=== PATIENT | female | born 1945 | race Caucasian/White ===

== ENCOUNTER → 2016-12-24 | Outpatient (CLI) | payer MEDICARE ==
[~2016-12-24] MED LIST: ALBU17AE3; ALBU8.5H2 IH; ALN70T PO; ASP325T PO; ASP81CT; ASP81CT PO; BENZONATATE 200 MG; CETI-156 PO; CETI10TA17 PO; CHOL10003 PO; CHOL200025 PO; CHOL200035 PO; CLD600T; CLR500T; CTRZ10T PO; CULTURELLE; CYAN10006 PO; DILT120C53 PO; DILT60TA PO; EST.625T PO; ESTR0.9T PO; FAMO1TAB21 PO; FAMO20TA13; FAMO20TA5 PO; FLEC50TA PO; GFN600TCR; HYDR-34 PO; HYDROMET SYRUP; LEVA1.2511 NEB; LEVO50TA PO; LVT.05T PO; MMT17NA NSEACH; MNTL10T; MNTL10T PO; MULT1TAB63; OMEG1CAP74 PO; OMG1KC PO; PRAV10TA PO; PRAV10TA23 PO; RIVA20TA2 PO; SIMV20TA3 PO; SLMFT1E; [UNRECOGNIZED DRUG - OTHER]; enduracin PO
--- OUTSIDE RECORDS SUMMARY | 2016-12-24 10:46 | XMS REPORT | Continuity of Care Document ---
Author Author [facility] Organization [facility] Address Unknown Phone Unavailable Care Team Providers Care Nuclear Plant Equipment Operator Name Role Phone Amari Maurer PCP [phone] Source Comments Some departments are not documenting in the electronic medical record. If you do not see the information that you expected, contact Release of Information in the Health Information Management department at [phone] for further assistance in locating additional records.[facility] Active Allergies and Adverse Reactions Allergen Noted Date Severity Reactions Comments Codeine 09/23/2014 NAUSEA AND VOMITING Current Medications Prescription Sig. Disp. Refills Start End Date Status Date levothyroxine (SYNTHROID) Take 50 mcg by mouth Active 50 mcg tablet daily. BENEFIBER (WHEAT DEXTRIN) Take 15 mL by mouth Active PO daily. pravastatin (PRAVACHOL) Take 10 mg by mouth at Active 10 mg tablet bedtime daily. cetirizine (ZYRTEC) 10 mg Take 10 mg by mouth at Active tablet bedtime daily. fish oil /omega-3 fatty Take 3 Caps by mouth at Active acids (SEA-OMEGA) bedtime daily. 340/1000 mg capsule OXYGEN-AIR DELIVERY Use as directed. Therapy Active SYSTEMS (HORIZON NASAL with air flow pressure of CPAP SYSTEM MISC) 7 with humidity at 5. CALCIUM CARBONATE (TUMS Take by mouth as Needed. Active PO) Cyanocobalamin 1,[address] 1 Tab under tongue Active subl at bedtime daily. rivaroxaban (XARELTO) 20 Take 1 Tab by mouth daily 08/28/20 Active mg tab tablet with dinner. 15 VITAMIN D-3 5,000 unit Take 1 Tab by mouth Active tab daily. diltiazem CD (CARTIA XT) Take 120 mg by mouth Active 120 mg capsule daily. teriparatide(+) (FORTEO) Inject 20 mcg under the Active 20 mcg/dose - 600 mcg/2.4 skin daily. mL pnij injection pen Active Problems Problem Noted Date Hyperlipidemia 09/23/2014 Last Assessment & Plan: Her lipids continue to be managed by her pcp. She continues to be on recommended statin therapy with Pravastatin 10 mg daily. CELY (obstructive sleep apnea) 09/23/2014 Last Assessment & Plan: She reports compliance with CPAP therapy. Hypothyroidism 09/23/2014 Last Assessment & Plan: She continues to be on supplemental replacement therapy. Elevated liver enzymes 09/23/2014 Overview: History of with simvastatin and eduracin. Tolerating Pravachol Coronary artery disease 09/23/2014 Overview: 06/21/12-[facility]ia [facility] MPI- 6 min; 89% target achieved; no ischemia or infarction on SPECT images; EF 78% 09/18/1401-wokv-ptjw coronary artery disease; nonobstructive disease L ast Assessment & Plan: Ms. Brewer denies any new symptomatic complaints suggestive of ischemia. Her heart cath in August 2014 was negative for any significant stenosis. Atrial fibrillation and flutter (HCC) 09/19/2014 Last Assessment & Plan: S/p atrial fibrillation ablation via Cryoablation in July. Outside the immediate post operative period, she has not had any further atrial arrhythmias. She was instructed that after the first of the year, she may decrease her flecainide to 50 mg twice daily. If she continues to be arrhythmia free, she was instructed she may discontinue her flecainide completely in 4-6 weeks. We did discuss that about 20-30% of patients experience reconnections and she may require a repeat ablation in the future. Chronic anticoagulation 09/19/2014 Overview: On Xarelto L ast Assessment & Plan: Since she thinks her lower extremity rash is due to her Xarelto, she was instructed to hold it for the next 3 to 4 days and if improves to let us know and we will switch her to a different anticoagulation agent. If it does not improve, she was instructed to reinitiate. Most Recent Encounters Date Type Specialty Providers Description 12/24/2016 Orders Only Cardiology Arlin Joseph Atrial fibrillation and flutter (HCC) (Primary Dx) 12/15/2016 [facility] Cardiology Felice Ocasio MD Encounter 11/10/2016 [facility] Cardiology Felice Ocasio MD Encounter 10/06/2016 [facility] Cardiology Felice Ocasio MD Encounter 09/28/2016 [facility] Cardiology Felice Ocasio MD Palpitations Social History Tobacco Use Types Packs/Day Years Used Date Never Smoker Smokeless Tobacco: Never Used Alcohol Use Drinks/Week oz/Week Comments No 0 Standard 0.0 drinks or equivalent Last Filed Vital Signs Vital Sign Reading Time Taken Blood Pressure 110/62 07/28/2016 9:20 AM CDT Pulse 68 07/28/2016 9:20 AM CDT Temperature 36.4 C (97.5 F) 08/28/2015 10:52 AM CDT Respiratory Rate - - Height 1.702 m (5' 7") 07/28/2016 9:20 AM CDT Weight 75.751 kg (167 lb) 07/28/2016 9:20 AM CDT Body Mass Index 26.15 07/28/2016 9:20 AM CDT Oxygen Saturation 94% 08/28/2015 10:21 AM CDT Plan of Care Date Type Specialty Providers Description 12/30/2016 Appointment Cardiology Felice Ocasio MD [address] [facility] [address] [place] [address] [phone] (Fax) 01/17/2017 Appointment Cardiology Felice Ocasio MD [address] [facility] [address] [place] [address] [phone] (Fax) Health Maintenance Due Date Last Done Comments Physical (Comprehensive) 1952 Exam Pertussis Vaccine 1954 Tetanus Vaccine 1960 Breast Cancer Screening 1983 Colorectal Cancer 1993 Screening Shingles Vaccine 2003 Osteoporosis Screening 2008 Prevnar/Pneumovax (#1) 2008 Influenza Vaccine 07/01/2016 Results from Last 3 Months DEVICE EVALUATION - REMOTE ILR (12/17/2016 9:59 AM)Only the most recent of 3 results within the time period is included. Component Value Range ILR History of Afib yes ILR Date AF Diagnosed 2011 Generator Implnat Date 10/09/14 Generator Model # Reveal LNQ11 Device Implanted By [place] Generator Serial # [id number] EP Device Followed by LIZZY/Michelle Name ILR Symptom Duration 4 7.5 mins each ILR Tachy Rate 158 ILR Tachy Duration 16 ILR Pause Duration 3 ILR Brandon Rate 30 ILR Brandon Duration 4 ILR AT Events Since Last n/a Interrogation ILR AT Lifetime Events as n/a of Remote Monitor Serial# [id number] Generator Channel Cementer Outsole Machine Medtronic Wireless Generator Yes Device Type ILR EP Device Followed By MAC ILR AF Rate AF only ILR AF Duration all episodes ILR Current Monitoring 12/15/16-01/14/17 Period ILR Date of Last Daily 12/17/16 Connection ILR Lifetime Events as of 12/17/16 Datetion ILR Symptom Events Since 0 Last Interrogation ILR Symptom Lifetime 12 Events as of ILR Tachy Events Since 1 Last Interrogation ILR Tachy Lifetime Events 34 as of ILR Pause Events Since 0 Last Interrogation ILR Pause Lifetime Events 0 as of ILR Brandon Events Since 0 Last Interrogation ILR Brandon Lifetime Events 0 as of ILR AF Events Since Last 0 Interrogation ILR AF Lifetime Events as 0 of ILR Percent Time in AT/AF 0% Events Since Last Interrogation ILR Percent Time in AT/AF 0% Lifetime of Events as of ILR Battery Status OK ILR Presenting ECG Strip 12/17/16 @ 00:04 shows SR rates 90's Generator Location Precordial Narrative [12/17/2016 10:01:26 AM - MIGUEL ÁNGEL DIAZ] Reviewed 31 day summary. Report indicates 1 tachy event. #56 Tachy 11/23/16 @ 18:10 lasting 9 seconds with median vrate 176 bpm and max vrate 176 bpm shows 30 sec strip with SR rates 90's with onset up SVT 180 bpm for 27 beats with termination of SVT and egm returning to SR rates 80's at time of termination of strip. Will continue to monitor. Strips attached. Routed to Dr. bazzi for review and signature. _
--- NOTE | 2016-12-24 11:08 | Diagnostic Imaging Report ---
INDICATION: Pain in right foot AP, oblique, and lateral views of the right foot were obtained. No fracture or acute bony abnormality is seen. There is plantar calcaneal spurring. There is no overt lytic or blastic lesion. IMPRESSION: Negative right foot. Dictated by: Dictated on workstation # [id number]
== END ==
LOC: RAD 10:42
PROVIDERS: ATTEND Nurse Practitioner Family
DX: M79.89 Other specified soft tissue disorders (principal)
CPT/HCPCS: 73630

== ENCOUNTER → 2016-12-29 | Outpatient (CLI) | payer MEDICARE ==
--- OUTSIDE RECORDS SUMMARY | 2016-12-29 14:36 | XMS REPORT | Continuity of Care Document ---
Author Author [facility] Organization [facility] Address Unknown Phone Unavailable Care Team Providers Care Learning Program Manager Name Role Phone Amari Maurer PCP [phone] Source Comments Some departments are not documenting in the electronic medical record. If you do not see the information that you expected, contact Release of Information in the Health Information Management department at [phone] for further assistance in locating additional records.[facility] Active Allergies and Adverse Reactions Allergen Noted [...] or infarction on SPECT images; EF 78% 09/18/1439-erot-doue coronary artery disease; nonobstructive disease L ast [...] fibrillation and flutter (HCC) (Primary Dx) 12/15/2016 [facility] Cardiology Felice Ocasio MD Encounter 11/10/2016 [facility] Cardiology Felice Ocasio MD Encounter 10/06/2016 [facility] Cardiology Felice Ocasio MD Encounter Social History Tobacco Use Types Packs/Day Years [...] 12/30/2016 Appointment Cardiology Felice Ocasio MD [address] [facility] [address] [place] [address] [phone] (Fax) 12/30/2016 Office Visit Cardiology Felice Ocasio MD [address] [facility] [address] [place] [address] [phone] (Fax) 01/17/2017 Appointment Cardiology Felice Ocasio MD [address] [facility] [address] [place] [address] [phone] (Fax) Health Maintenance Due Date Last Done [...] Model # Reveal LNQ11 Device Implanted By [place] Generator Serial # [id number] EP Device Followed by LIZZY/Michelle Name ILR Symptom Duration 4 7.5 mins each ILR Tachy Rate 158 ILR Tachy Duration 16 ILR Pause Duration 3 ILR Brandon Rate 30 ILR Brandon Duration 4 ILR AT Events Since Last n/a Interrogation ILR AT Lifetime Events as n/a of Remote Monitor Serial# [id number] Generator Hemp Fiber Taker Off Medtronic Wireless Generator Yes Device Type ILR [...]
--- NOTE | 2016-12-29 15:21 | Diagnostic Imaging Report ---
EXAMINATION: Right lower extremity duplex venous ultrasound. TECHNIQUE: DVT protocol. Multiple sonographic images with color Doppler and waveform interrogation were performed of the right lower extremity veins with compression and augmentation maneuvers. INDICATION: Right leg pain and swelling. FINDINGS: The right lower extremity veins from the groin to below the knee veins were examined with normal color-flow, compressibility and normal waveform demonstrated. The great saphenous vein is patent. IMPRESSION: No evidence of DVT in the right lower extremity. Dictated by: Dictated on workstation # [id number]
== END ==
LOC: RAD 14:32
PROVIDERS: ATTEND Nurse Practitioner Family
DX: M79.671 Pain in right foot (principal); R22.41 Localized swelling, mass and lump, right lower limb

== ENCOUNTER → 2017-10-21 | Outpatient (CLI) | payer MEDICARE | LOC: CARD 09:18 | PROVIDERS: ATTEND Physician Assistant | DX: I48.0 Paroxysmal atrial fibrillation (principal); I10 Essential (primary) hypertension; E78.2 Mixed hyperlipidemia; R00.2 Palpitations; Z82.49 Family history of ischemic heart disease and other diseases of the circulatory system | CPT/HCPCS: 93306 ==

== ENCOUNTER 2018-05-18 05:40 | Outpatient (CLI) | payer MEDICARE ==
[~2018-05-18] VITALS: Ht 165.1 cm; Wt 72.6 kg
[2018-05-18] MEDS ORDERED: PRAV10TA PO (13:26)
[2018-05-18] MEDS ORDERED: CHOL500061 PO (13:26)
[2018-05-18] MEDS ORDERED: PANT40TA3 PO (13:26)
[2018-05-18] MEDS ORDERED: CETI10TA17 PO (13:26)
[2018-05-18] MEDS ORDERED: OMEG100032 PO (13:26)
[2018-05-18] MEDS ORDERED: CYAN100088 PO (13:26)
[2018-05-18] MEDS ORDERED: LEVO50TA6 PO (13:26)
[2018-05-18] MEDS ORDERED: TERI202.4P SQ (13:26)
[2018-05-18] MEDS ORDERED: BIMA2.5D4 OU (13:26)
[2018-05-18] MEDS ORDERED: ASPI-808 PO (13:26)
== END 2018-05-18 15:42 ==
LOC: PREOP 05:40
PROVIDERS: ATTEND Surgery
DX: Z01.818 Encounter for other preprocedural examination (principal); Z12.11 Encounter for screening for malignant neoplasm of colon

== ENCOUNTER 2018-05-24 11:38 | Day surgery (SDC) | payer MEDICARE ==
[~2018-05-24] VITALS: Ht 165.1 cm; Wt 72.6 kg
[~2018-05-24 11:38] MED LIST changes: +ASPI-808 PO; +BIMA2.5D4 OU; +CHOL500061 PO; +CYAN100088 PO; +LEVO50TA6 PO; +OMEG100032 PO; +PANT40TA3 PO; +TERI202.4P SQ
--- OUTSIDE RECORDS SUMMARY | 2018-05-24 11:41 | XMS REPORT | Encounter Summary ---
Author Author [facility] Organization [facility] Address Unknown Phone Unavailable Care Team Providers Care Crucible Furnace Tender Name Role Phone Juju Maurer MD PCP Chrissy Vail RN Unavailable Unavailable Monica Pool Unavailable Unavailable Encounter Details Date Type Department Care Team Description 03/23/2018 Ancillary [facility] Cardiology Felice Ocasio MD Cardiac device in situ [place] [address] [place] [address] [place] [address] [phone] Social History Tobacco Use Types Packs/Day Years Used Date Never Smoker Smokeless Tobacco: Never Used Alcohol Use Drinks/Week oz/Week Comments No 0 Standard 0.0 drinks or equivalent Sex Assigned at Date Recorded Not on file as of this encounter Plan of Treatment Not on fileas of this encounter Results * DEVICE EVALUATION - ILR (03/23/2018 10:17 AM) Component Value Ref Range ILR History of Afib yes ILR Date AF Diagnosed 2,012 Generator Implnat Date 10/09/14 Generator Model # Reveal LNQ11 Device Implanted By [place] Generator Serial # [id number] EP Device Followed by LIZZY/Michelle Name ILR Symptom Duration 4 7.5 mins each ILR Tachy Rate 158 ILR Tachy Duration 16 ILR Pause Duration 3 ILR Brandon Rate 30 ILR Brandon Duration 4 ILR AT Events Since Last n/a Interrogation ILR AT Lifetime Events as n/a of Remote Monitor Serial# [id number] Generator Steel Placer Medtronic Wireless Generator Yes Device Type ILR EP Device Followed By MAC ILR AF Rate AF only ILR AF Duration all episodes ILR Battery Status EOS on 12/21/17 ILR Symptom Events Since 0 Last Interrogation ILR Symptom Lifetime 0 Events as of ILR Tachy Events Since 2 Last Interrogation ILR Tachy Lifetime Events 69 as of ILR Pause Events Since 0 Last Interrogation ILR Pause Lifetime Events 0 as of ILR Brandon Events Since 0 Last Interrogation ILR Brandon Lifetime Events 0 as of ILR AF Events Since Last 0 Interrogation ILR AF Lifetime Events as 0 of ILR Percent Time in AT/AF 0.0% Events Since Last Interrogation ILR Presenting ECG Strip VS at 60 bpm ILR Lifetime Events as of 03/23/18 Datetion Specimen Performing Laboratory OTHER OUTSIDE LAB Narrative 03/23/2018 - ILR LINQ device interrogation.Device function appears normal.Battery reached EOS on 12/21/17. Events noted since 11/19/17: Tachy episode #106 on 12/19/17 at 1:41pm lasting 11 seconds, EGM shows sudden onset and termination on true tachycardia, V-rates 188 bpm. Tachy episode #107 on 12/22/17 at 5:35pm lasting 8 seconds, EGM shows sudden onset and termination of true tachycardia, V-rates: 167 bpm. Changes made to programming:None. Remote in place.Report given to LIZZY in clinic. EG in this encounter Visit Diagnoses Diagnosis Cardiac device in situ Unspecified cardiac device in situ
--- OUTSIDE RECORDS SUMMARY | 2018-05-24 11:41 | XMS REPORT | Clinical Summary ---
Author Author [facility] Organization [facility] Address Unknown Phone Unavailable Care Team Providers Care Senior Sales Manager Name Role Phone Juju Maurer MD PCP Chrissy Vail RN Unavailable Unavailable Monica Pool Unavailable Unavailable Source Comments Some departments are not documenting in the electronic medical record. If you do not see the information that you expected, contact Release of Information in the Health Information Management department at [phone] for further assistance in locating additional records.[facility] Allergies Active Allergy Reactions Severity Noted Date Comments Codeine NAUSEA AND VOMITING 09/23/2014 Current Medications Prescription Sig. Disp. Refills Start End Date Status Date levothyroxine (SYNTHROID) Take 50 mcg by mouth Active 50 mcg tablet daily. pravastatin (PRAVACHOL) Take 10 mg by [...] SYSTEM MISC) 7 with humidity at 5. Cyanocobalamin 1,[address] 1 Tab under tongue Active subl at bedtime daily. VITAMIN D-3 5,000 unit Take 1 Tab by mouth Active tab daily. teriparatide(+) (FORTEO) Inject 20 mcg under the Active 20 mcg/dose - 600 mcg/2.4 skin daily. mL pnij injection pen diltiazem CD (CARTIA XT) Take 1 capsule by mouth 90 capsule 3 Active 120 mg daily. 17 capsuleIndications: Atrial tachycardia (HCC) aspirin 325 mg tablet Take 325 mg by mouth Active daily. Take with food. pantoprazole DR Take 40 mg by mouth Active (PROTONIX) 40 mg tablet daily. Active Problems Problem Noted Date Cardiac device in situ 03/23/2018 Hyperlipidemia 09/23/2014 Last Assessment & Plan: Her [...] Pravachol Coronary artery disease 09/23/2014 Overview: 06/21/12-[facility] MPI- 6 min; 89% target achieved; no ischemia or infarction on SPECT images; EF 78% 09/18/1445-jgls-xera coronary artery disease; nonobstructive disease L ast [...] not improve, she was instructed to reinitiate. Encounters Date Type Specialty Care Team Description 03/23/2018 Office Visit Cardiology Felice Ocasio MD Cardiac Eval ( 6 month f/u PAF, mild CAD) 03/23/2018 Hospital Cardiology Felice Ocasio MD Encounter 03/23/2018 Ancillary Cardiology Felice Ocasio MD Cardiac device in situ Orders from Last 3 Months Family History Medical History Relation Name Comments Cancer Father Cancer Mother Relation Name Status Comments Father Mother Social History Tobacco Use Types Packs/Day Years Used Date Never Smoker Smokeless Tobacco: Never Used Alcohol Use Drinks/Week oz/Week Comments No 0 Standard 0.0 drinks or equivalent Sex Assigned at Date Recorded Not on file Last Filed Vital Signs Vital Sign Reading Time Taken Blood Pressure 134/68 03/23/2018 9:41 AM CDT Pulse 62 03/23/2018 9:41 AM CDT Temperature 36.4 C (97.5 F) 08/28/2015 10:52 AM CDT Respiratory Rate - - Oxygen Saturation 99% 03/23/2018 9:41 AM CDT Inhaled Oxygen - - Concentration Weight 77.1 kg (170 lb) 03/23/2018 9:41 AM CDT Height 170.2 cm (5' 7") 03/23/2018 9:41 AM CDT Body Mass Index 26.63 03/23/2018 9:41 AM CDT Plan of Treatment Health Maintenance Due Date Last Done Comments PHYSICAL (COMPREHENSIVE) 1952 EXAM PERTUSSIS VACCINE 1954 TETANUS VACCINE 1960 BREAST CANCER SCREENING 1983 COLORECTAL CANCER 1993 SCREENING SHINGLES RECOMBINANT 1993 VACCINE (1 of 2) OSTEOPOROSIS SCREENING 2008 PNEUMONIA (PCV13/PPSV23) 2008 VACCINES (1 of 2 - PCV13) INFLUENZA VACCINE 07/31/2018 Procedures Procedure Name Priority Date/Time Associated Diagnosis Comments ECG-SCAN 04/08/2018 Results for this 8:55 AM CDT procedure are in the results section. from Last 3 Months Results * ECG-SCAN (04/08/2018 8:55 AM) Narrative Ordered by an unspecified provider. * DEVICE EVALUATION - ILR (03/23/2018 10:17 AM) Component Value Ref Range ILR History of Afib yes ILR Date AF Diagnosed 2,012 Generator Implnat Date 10/09/14 Generator Model # Reveal LNQ11 Device Implanted By [place] Generator Serial # [id number] EP Device Followed by LIZZY/Michelle Name ILR Symptom Duration 4 7.5 mins each ILR Tachy Rate 158 ILR Tachy Duration 16 ILR Pause Duration 3 ILR Brandon Rate 30 ILR Brandon Duration 4 ILR AT Events Since Last n/a Interrogation ILR AT Lifetime Events as n/a of Remote Monitor Serial# [id number] Generator Assistant Manager Of Operations Medtronic Wireless Generator Yes Device Type ILR [...] to programming:None. Remote in place.Report given to MPE in clinic. EG from Last 3 Months
--- OUTSIDE RECORDS SUMMARY | 2018-05-24 11:41 | XMS REPORT | Encounter Summary ---
Author Author [facility] Organization [facility] Address Unknown Phone Unavailable Care Team Providers Care Claims Agent Right Of Way Name Role Phone Juju Maurer MD PCP Chrissy Vail RN Unavailable Unavailable Monica Pool Unavailable Unavailable Reason for Referral * Status Reason Specialty Diagnoses / Referred By Referred To Procedures Contact Contact New Request Procedures Felice Ocasio, REQUEST FOR MD CARDIOLOGY [address] [facility] [address] [place] [address] Reason for Visit * Reason Comments Cardiac Eval 6 month f/u PAF, mild CAD Encounter Details Date Type Department Care Team Description 03/23/2018 Office Visit [facility] Cardiology Felice Ocasio MD Cardiac Eval (6 month f/u [facility] [facility] PAF, mild CAD) [address] [place] [address] [place] [address] [phone] Social History Tobacco Use Types Packs/Day Years Used Date Never Smoker Smokeless Tobacco: Never Used Alcohol Use Drinks/Week oz/Week Comments No 0 Standard 0.0 drinks or equivalent Sex Assigned at Date Recorded Not on file as of this encounter Last Filed Vital Signs Vital Sign Reading Time Taken Blood Pressure 134/68 03/23/2018 9:41 AM CDT Pulse 62 03/23/2018 9:41 AM CDT Temperature - - Respiratory Rate - - Oxygen Saturation 99% 03/23/2018 9:41 AM CDT Inhaled Oxygen - - Concentration Weight 77.1 kg (170 lb) 03/23/2018 9:41 AM CDT Height 170.2 cm (5' 7") 03/23/2018 9:41 AM CDT Body Mass Index 26.63 03/23/2018 9:41 AM CDT in this encounter Instructions * Patient Instructions - Verito Parrish RN - 03/23/2018 10:30 AM CDT I would like you to check your pulse daily for irregularity and/or rapidity and contact our office either occurs and persists. Also keep a log of your heart rates(HR) and note if your pulse is regular(R) or irregular(I) and bring that log with you during each office visit. if abnormal activate LINQ and call the ep nurse triage line at [phone] Ocasio in 9 months with device check In order to provide you the best care possible we ask that you follow up as below: For NON-URGENT questions please contact us through your [employer] account. For all medication refills please contact your pharmacy or send a request through [employer]. For all questions that may need to be addressed urgently please call the nursing triage line at [phone] Tuesday - Tuesday 8-5 only. Please leave a detailed message with your name, date of , and reason for your call. To schedule an appointment call [phone]. Please allow 10-15 business days for the results of any testing to be reviewed. Please call our office if you have not heard from a nurse within this time frame. in this encounter Progress Notes * Felice Ocasio MD - 03/23/2018 10:30 AM CDT Formatting of this note may be different from the original. Date of Service: 03/23/2018 Lisa Brewer is a 72 y.o. female. HPI I had the pleasure of seeing your patient Lisa Brewer in the [facility] as a part of the [facility] office today for follow up regarding her PAFIB and mild CAD. She was initially referred by my friend and colleague, Dr. Martinez, her primary grinder watch parts in [place], [place]. Ms. Brewer is an exceptionally pleasant 72 y.o. female, who is accompanied by her equally pleasant spouse. Their 15 year-old grandson has been offered full-ride scholarships to multiple [email or web address] for [employer]. The past medical history and data below has been reviewed and updated by me with new events for today's visit. Her PMHx briefly includes: PAFIB S/P AFIB Cryo Ablation (08/27/15), with Brief Episodes of ATACH Post-AFIB Ablation; S/P Medtronic Reveal LinQ Implantable Looping Monitor to follow AFIB burden; Mild CAD by Cardiac Cath (2013);Severe CELY-- on CPAP Tx; Hyperlipidemia; and Hypothyroidism (on replacement). Of note: Beta-Blockers contraindicated due to her Bronchospasm. She has a [id number] score of 2: Female and Age > 65 Regarding her AFIB:Please see Problem List and Prior OV notes including 01/12 and Initial Consultation note for greater detail. However, briefly: -- 07/2012: AFIB initially Dx'ed -- 09/23/14: Initial EP Consultation --> Flecainide as a qpqv-lr-pgt-pocket approach. -- 09/23/14 Echo: LVEF 60%. Mild LA enlargement (4.1 cm). Mild MR/TR. -- 10/09/14: Medtronic Reveal LinQ Implantable Looping Monitor Implanted by Dr. Martinez. -- 06/25/15: OV: Recurrent Sxic AFIB -->Initiated Flecainide 50 mg BIDand Cardizem CD 120 mg daily. -- 08/27/15: AFIB Cryo Ablation. -- 08/31/15: Recurrent ATACH with RVR -->Increased to Flecainide 100 mg BID. -- Outside the immediate post operative period, she had not had any further atrial arrhythmias. -- 10/31/15: Flecainide DC'ed. -- 12/2015: Post-Ablation CTA-- persistent mild LA enlargement with mild decrease in volume no significant pulmonary vein stenosis but there is mild focal narrowing of the left superior and left inferior ostia without stenosis and still early branching of the right superior PV. -- 08/2016: LinQ Monitor with recurrent SVT-ATACH, with brief recurrences one time in 12/2015, and one time in 05/2016. -- 07/28/16: OV (Dr. Ocasio): AFIB/Atypical AFL: Discontinued Diltiazem, pt has been off Flecainide since 10/31/15 -- 09/07/17: OV (Dr. Ocasio): Pt had zero recurrent AFIB over the last year with only very brief episodes of ATACH. We continued Diltiazem switched her to Eliquis due to insurance coverage issues. -- 10/25/17: Recommended reinitiation of Flecainide 50 mg BID for recurrent SVT -ATACH, but pt did not wish to reinitiate the medication at this time She STATES she is doing well. She has had a lot going on over the past few months. She had been very active taking care of her after multiple detached retina surgeries and doing the majority of the work around the house and has done well without any symptom limitations. She discontinued her Xarelto on 09/27/17 and has remained on ASA 325 mg daily. She states this decision was consulted with and approved by Dr. Martinez. She remains on Cartia. She also claims compliance with her OSAS Tx. She denies any chest discomfort, shortness of breath, palpitations, lightheadedness, near syncope or syncope, PND or orthopnea. FHx, SHx and ROS documented and I have reviewed, with some pertinent features to include: She is a Non-Smoker. Most pertinent ROS is included/discussed throughout the note, e.g. HPI and A/P. ASSESSMENT AND PLAN: -- Paroxysmal Atrial Tachycardia Noted [id number] Diltiazem, and Xarelto -- Atrial Fibrillation and Atypical Atrial Flutter--S/P AFIB Cryo-Ablation 2014 -- Prior anticoagulation -- [employer] Reveal LinQ Implantable Looping Monitor -- Bilateral Venous Varicosities -- Hypothyroidism -- Obstructive Sleep Apnea Syndrome (OSAS) -- Mixed Hyperlipidemia -- Mild Coronary Artery Disease -Per Cath She is doing exceptionally well. She has had no recurrent symptoms since December. She is off her Eliquis she does understand that there is some risks of being off Eliquis but has not had documented atrial fibrillation for well over a year. She will check her pulse daily. While she is willing to track any recurrent episodes of atrial arrhythmias. If she has recurrent AFIB I would initiate anticoagulation long-term. If she has frequent symptomatic recurrent atrial tachycardia then I would reinitiate Flecainide. Otherwise is doing exceptionally well on diltiazem without symptoms or events over the last 3+ months. She also claims compliance with her OSAS. PLAN: -- I have asked her to check her pulse twice (AM and PM) daily for irregularity and/or rapidity and contact our office if it occurs and persists. I have asked her to keep a log including date, once a day HR, regular or irregular-- elaborating on skipped beat or AFIB. -- I asked her to call our office and activate her LINQ device with any new or recurrent symptoms Ms. Brewer was educated regarding plan of care. She was instructed to call our office with any questions or concerns, as well as to notify us of any new or worsening symptoms. She verbalized understanding. I appreciate the opportunity to participate in the care of your patient. Please do not hesitate to contact me directly if you have any questions or further insights into her care. I have scheduled her follow-up with me in 9 month(s). Vitals: 03/23/18 0941 BP: 134/68 Pulse: 62 SpO2: 99% Weight: 77.1 kg (170 lb) Height: 1.702 m (5' 7") Body mass index is 26.63 kg/m. Past Medical History Patient Active Problem List Diagnosis Date Noted Cardiac device in situ 03/23/2018 Hyperlipidemia 09/23/2014 CELY (obstructive sleep apnea) 09/23/2014 Hypothyroidism 09/23/2014 Elevated liver enzymes 09/23/2014 History of with simvastatin and eduracin. Tolerating Pravachol Coronary artery disease 09/23/2014 06/21/12-Via Haley Rivera MPI- 6 min; 89% target achieved; no ischemia or infarction on SPECT images; EF 78% 09/18/1410-[id number]-[id number] coronary artery disease; nonobstructive disease Atrial fibrillation and flutter (HCC) 09/19/2014 Chronic anticoagulation 09/19/2014 On Xarelto Review of Systems Constitution: Negative. HENT: Negative. Eyes: Negative. Cardiovascular: Negative. Respiratory: Negative. Endocrine: Negative. Hematologic/Lymphatic: Negative. Skin: Negative. Musculoskeletal: Negative. Gastrointestinal: Negative. Genitourinary: Negative. Neurological: Negative. Psychiatric/Behavioral: Negative. Allergic/Immunologic: Negative. Physical Exam Constitutional: She is in no acute distress, resting comfortably. Skin/Integument: Warm and dry. Eyes: PERRL, sclera are non-icteric and no xanthelasmas noted. ENT: Hearing is intact, Oropharynx is clear and moist. Heme/Lym/Immun: Supple neck, without thyromegaly. Respiratory-Pulmonary/Chest: Effort normal and breath sounds normal. No respiratory distress or accessory muscle use. No obvious tracheal deviation. Clear to auscultation bilaterally. Cardiovascular: No evidence of increased jugular venous pressure, carotids are 2+/4+ equal bilaterally. Regular rhythm, S1, S2. 2/6 systolic murmur noted at the USBs. No heaves, thrills or rubs. Musc/Skeletal-Extremities: Without significant peripheral edema. With what appears to be full ROM. Bilateral venous varicosities. LINQ Site: Is in her left chest region and well-healed. Neuro: Patient is alert and oriented to person, place, and time. Psych: Patient does not appear anxious, she appears appropriate, with normal non-pressured speech and what appears to be appropriate judgement Cardiovascular Studies ECG today demonstrates NSR at 62 bpm, PAC, left axis deviation. RSR prime in V1. [employer] Reveal LinQ Implantable Looping Monitor Full device check performed with reprogramming which I have extensively reviewed. Changes, if done, as discussed below and is detailed in other dictation/note. Device reached EOS on 12/21/17. The device over still functional. She essentially had 2 new tach events. One was on 12/19/17 was on 12/22/17. She has had none since. Less symptomatic event was back in epic comments above. The tach events appear to be episodes of atrial tachycardia with a cycle length of 390 ms range. Appears to be a P-wave before the QRS. Second event was a cycle length of 320 ms. Both of a sudden onset and termination. They both are under 10 seconds in duration. Patient has had prior AFIB ablation. She has had short bursts of A. tach since that time. She is not on anticoagulation since she has had only recurrent A. tach. Most recent events with symptom activation auto activation again show brief A. tach. Not AFIB. We discussed at her office visit 08/2017 that if she continues to have symptoms we consider initiating Flecainide 50 mg twice daily.--We will contact her to see if she feels her symptoms warrant initiation of Flecainide. Also her device as noted he has reached PROJECT PROGRAM MANAGER. However is still functional. Since we are however utilizing it to track for AFIB since she is not on anticoagulation I would recommend explantation and reimplantation a new device. Dr. Martinez originally implanted her Medtronic LinQ Implantable Monitor device, therefore we will defer to him of to explant and reimplant new device. Problems Addressed Today Encounter Diagnoses Name Primary? Atrial fibrillation and flutter (HCC) Yes Cardiac device in situ Current Medications (including today's revisions) aspirin 325 mg tablet Take 325 mg by mouth daily. Take with food. cetirizine (ZYRTEC) 10 mg tablet Take 10 mg by mouth at bedtime daily. Cyanocobalamin 1,[address] 1 Tab under tongue at bedtime daily. diltiazem CD (CARTIA XT) 120 mg capsule Take 1 capsule by mouth daily. fish oil /omega-3 fatty acids (SEA-OMEGA) 340/1000 mg capsule Take 3 Caps by mouth at bedtime daily. levothyroxine (SYNTHROID) 50 mcg tablet Take 50 mcg by mouth daily. OXYGEN-AIR DELIVERY SYSTEMS (HORIZON NASAL CPAP SYSTEM [facility] [place]) Use as directed. Therapy with air flow pressure of 7 with humidity at 5. pantoprazole DR (PROTONIX) 40 mg tablet Take 40 mg by mouth daily. pravastatin (PRAVACHOL) 10 mg tablet Take 10 mg by mouth at bedtime daily. teriparatide(+) (FORTEO) 20 mcg/dose - 600 mcg/2.4 mL pnij injection pen Inject 20 mcg under the skin daily. VITAMIN D-3 5,000 unit tab Take 1 Tab by mouth daily. Documentation recorded by Silver Whyte, acting as scribe for Felice Ocasio M.D. in this encounter Plan of Treatment Name Priority Associated Diagnoses Order Schedule ECG 12-LEAD Routine Atrial fibrillation and Ordered: 03/23/2018 flutter (HCC) Cardiac device in situ as of this encounter Visit Diagnoses Diagnosis Atrial fibrillation and flutter (HCC) - Primary Cardiac device in situ Unspecified cardiac device in situ
--- OUTSIDE RECORDS SUMMARY | 2018-05-24 11:41 | XMS REPORT | Encounter Summary ---
Author Author [facility] Organization [facility] Address Unknown Phone Unavailable Care Team Providers Care Director Translational Name Role Phone Juju Maurer MD PCP Chrissy Vail RN Unavailable Unavailable Monica Pool Unavailable Unavailable Encounter Details Date Type Department Care Team Description 03/23/2018 [facility] Cardiology Felice Ocasio MD Encounter [place] [id number] [address] [facility] [address] [facility] [address] [place] [address] [place] [address] [phone] Social History Tobacco Use Types Packs/Day Years Used Date Never Smoker Smokeless Tobacco: Never Used Alcohol Use Drinks/Week oz/Week Comments No 0 Standard 0.0 drinks or equivalent Sex Assigned at Date Recorded Not on file as of this encounter Medications at Time of Discharge Medication Sig. Disp. Refills Start Date End Date aspirin 325 mg tablet Take 325 mg by mouth daily. Take with food. cetirizine (ZYRTEC) 10 mg Take 10 mg by mouth at tablet bedtime daily. Cyanocobalamin 1,[address] 1 Tab under tongue subl at bedtime daily. diltiazem CD (CARTIA XT) Take 1 capsule by mouth 90 capsule 3 2016 120 mg daily. capsuleIndications: Atrial tachycardia (HCC) fish oil /omega-3 fatty Take 3 Caps by mouth at acids (SEA-OMEGA) bedtime daily. 340/1000 mg capsule levothyroxine (SYNTHROID) Take 50 mcg by mouth 50 mcg tablet daily. OXYGEN-AIR DELIVERY Use as directed. Therapy SYSTEMS (HORIZON NASAL with air flow pressure of CPAP SYSTEM MISC) 7 with humidity at 5. pantoprazole DR Take 40 mg by mouth (PROTONIX) 40 mg tablet daily. pravastatin (PRAVACHOL) Take 10 mg by mouth at 10 mg tablet bedtime daily. teriparatide(+) (FORTEO) Inject 20 mcg under the 20 mcg/dose - 600 mcg/2.4 skin daily. mL pnij injection pen VITAMIN D-3 5,000 unit Take 1 Tab by mouth tab daily. as of this encounter Plan of Treatment Not on fileas of this encounter Results * DEVICE EVALUATION - ILR (03/23/2018 10:17 AM) Component Value Ref Range ILR History of Afib yes ILR Date AF Diagnosed 2,012 Generator Implnat Date 10/09/14 Generator Model # Reveal [id number] Device Implanted By [employer] Serial # [id number] EP Device Followed by LIZZY/Michelle Name ILR Symptom Duration 4 7.5 mins each ILR Tachy Rate 158 ILR Tachy Duration 16 ILR Pause Duration 3 ILR Brandon Rate 30 ILR Brandon Duration 4 ILR AT Events Since Last n/a Interrogation ILR AT Lifetime Events as n/a of Remote Monitor Serial# [id number] Generator Patent Litigation Associate K[employer] Wireless Generator Yes Device Type ILR EP [...] place.Report given to MPE in clinic. EG in this encounter Visit Diagnoses Diagnosis Atrial tachycardia (HCC) Other specified cardiac dysrhythmias Cardiac device in situ Unspecified cardiac device in situ
--- OUTSIDE RECORDS SUMMARY | 2018-05-24 11:45 | XMS REPORT | CCD ---
Author Author Juju Maurer Organization Juju Maurer MD, [facility] Address [address] [place] [address] Phone Care Team Providers Care Object Oriented Programmer Name Role Phone PP Unavailable CCM Unavailable Summary Purpose Interface Exchange Insurance Providers Payer name Policy type / Coverage type Covered republican ID Effective Begin Date Effective End Date WPS Medicare Part B Medicare Part B [id number] 2013 Unknown [facility] Medicare Part B [id number] Unknown Family history Grandfather Diagnosis Age At Onset No Family Disease Entered N/A Grandfather Diagnosis Age At Onset Myocardial infarction Unknown Grandmother Diagnosis Age At Onset No Family Disease Entered N/A Mother Diagnosis Age At Onset Hypertension Unknown Breast cancer Unknown Arthritis Unknown Father Diagnosis Age At Onset Cancer Unknown Myocardial infarction Unknown Social History Social History Element Codes Description Effective Dates Marital status Unknown 10/10/2012 Living arrangements Unknown House 10/10/2012 Number of adults in household Unknown 2 10/10/2012 Education level Unknown College Graduate 10/10/2012 Employment Unknown Retired 10/10/2012 Allergies, Adverse Reactions, Alerts Substance Reaction Codes Entered Date Inactivated Date Status CODEINE nausea RxNorm: 2670 10/10/2012 No Inactive Date Active Past Medical History Illness Codes Condition Status Onset Date Resolved Date Atrophy of thyroid (acquired) ICD-9: 244.8 ICD-10: E03.4 Active 10/11/2016 Unknown Mixed hyperlipidemia ICD-9: 272.2 ICD-10: E78.2 Active 04/11/2017 Unknown Other specified cardiac arrhythmias ICD-9: 427.89 ICD-10: I49.8 Active 10/11/2016 Unknown Encounter for general adult medical examination with abnormal findings ICD-9: V70.0 ICD-10: Z00.01 Active 01/24/2017 Unknown Pain in right foot ICD -9: 729.5 ICD-10: M79.671 Active 12/24/2016 Unknown Age-related osteoporosis without current pathological fracture ICD-9: 733.00 ICD-10: M81.0 Active 06/27/2016 Unknown Hypothyroidism, unspecified ICD-9: 244.9 ICD-10: E03.9 Active 04/29/2014 Unknown Cutaneous abscess of chest wall ICD-9: 682.2 ICD-10: L02.213 Active 04/13/2016 Unknown Gastro-esophageal reflux disease without esophagitis ICD-9: 530.81 ICD-10: K21.9 Active 02/09/2016 Unknown Unspecified atrial fibrillation ICD-9: 427.31 ICD-10: I48.91 Active 09/16/2014 Unknown Other fatigue ICD-9: 780.79 ICD-10: R53.83 Active 09/09/2015 Unknown ATRIAL FIBRILLATION ICD-9: 427.31 Active 09/16/2014 Unknown Hyperlipidemia ICD-9: 272.4 Active 04/29/2014 Unknown HYPOTHYROIDISM ICD-9: 244.9 Active 04/29/2014 Unknown Elevated blood sugar ICD-9: 790.29 Active 09/16/2014 Unknown UTI ICD-9: 599.0 Active 08/22/2014 Unknown Benign mole ICD-9: 216.9 Active 06/12/2013 Unknown Osteoarthritis Unknown Active 04/23/2013 Unknown Osteoarthritis ICD-9: 715.90 Active 04/23/2013 Unknown Sacroiliitis ICD-9: 720.2 Active 04/23/2013 Unknown Abdominal pain ICD-9: 789.00 Active 01/31/2013 Unknown Diarrhea ICD-9: 787.91 Active 01/31/2013 Unknown Atrial fibrillation Unknown Active 10/10/2012 Unknown Hyperlipidemia Unknown Active 10/10/2012 Unknown Hypothryroidism Unknown Active 10/10/2012 Unknown Hypothyroid Unknown Active 10/10/2012 Unknown osteopenia Unknown Active 10/10/2012 Unknown pneumonia Unknown Active 10/10/2012 Unknown Problems Condition Codes Effective Dates Condition Status Atrophy of thyroid (acquired) ICD-9: 244.8 ICD-10: E03.4 10/11/2016 Active Mixed hyperlipidemia ICD-9: 272.2 ICD-10: E78.2 04/11/2017 Active Other specified cardiac arrhythmias ICD-9: 427.89 ICD-10: I49.8 10/11/2016 Active Encounter for general adult medical examination with abnormal findings ICD-9: V70.0 ICD-10: Z00.01 01/24/2017 Active Pain in right foot ICD -9: 729.5 ICD-10: M79.671 12/24/2016 Active Age-related osteoporosis without current pathological fracture ICD-9: 733.00 ICD-10: M81.0 06/27/2016 Active Hypothyroidism, unspecified ICD-9: 244.9 ICD-10: E03.9 04/29/2014 Active Cutaneous abscess of chest wall ICD-9: 682.2 ICD-10: L02.213 04/13/2016 Active Gastro-esophageal reflux disease without esophagitis ICD-9: 530.81 ICD-10: K21.9 02/09/2016 Active Unspecified atrial fibrillation ICD-9: 427.31 ICD-10: I48.91 09/16/2014 Active Other fatigue ICD-9: 780.79 ICD-10: R53.83 09/09/2015 Active ATRIAL FIBRILLATION ICD-9: 427.31 09/16/2014 Active Hyperlipidemia ICD-9: 272.4 04/29/2014 Active HYPOTHYROIDISM ICD-9: 244.9 04/29/2014 Active Elevated blood sugar ICD-9: 790.29 09/16/2014 Active UTI ICD-9: 599.0 08/22/2014 Active Benign mole ICD-9: 216.9 06/12/2013 Active Osteoarthritis Unknown 04/23/2013 Active Osteoarthritis ICD-9: 715.90 04/23/2013 Active Sacroiliitis ICD-9: 720.2 04/23/2013 Active Abdominal pain ICD-9: 789.00 01/31/2013 Active Diarrhea ICD-9: 787.91 01/31/2013 Active Atrial fibrillation Unknown 10/10/2012 Active Hyperlipidemia Unknown 10/10/2012 Active Hypothryroidism Unknown 10/10/2012 Active Hypothyroid Unknown 10/10/2012 Active osteopenia Unknown 10/10/2012 Active pneumonia Unknown 10/10/2012 Active Medications Medication Codes Instructions Start Date Stop Date Status Fill Instructions Synthroid 50 mcg tablet RxNorm: 906997 TAKE ONE TABLET BY MOUTH EVERY DAY 09/30/2017 04/27/2018 Active 09/30/2017 4:10:19 PM Synthroid 50 mcg tablet RxNorm: 929529 Tablet(s) UD 08/19/2017 09/29/2017 Inactive 1/ 2 pill WED & SATURDAYS Xarelto 20 mg tablet RxNorm: 1830354 1 Tablet(s) PO daily 06/0912/12/2017 Inactive Synthroid 50 mcg tablet RxNorm: 172382 TAKE ONE TABLET BY MOUTH EVERY DAY 02/17/2017 08/18/2017 Inactive 02/17/2017 10:01:49 AM Tamiflu 75 mg capsule RxNorm: 656310 1 Capsule(s) PO daily 01/1701/17/2017 Inactive Vitamin D3 5,000 unit tablet RxNorm: 449967 1 Tablet(s) PO daily 11/23/2016 06/20/2017 Inactive Forteo 20 mcg/dose (600 mcg/2.4 mL) subcutaneous pen injector RxNorm: 2399805 20 mcg SQ daily 11/10/2016 03/09/2017 Inactive Xarelto 20 mg tablet RxNorm: 6369246 1 Tablet(s) PO daily 11/0806/05/2017 Inactive Synthroid 50 mcg tablet RxNorm: 299478 TAKE ONE TABLET BY MOUTH EVERY DAY 07/27/2016 02/16/2017 Inactive refill request Forteo 20 mcg/dose (600 mcg/2.4 mL) subcutaneous pen injector RxNorm: 5149875 20 mcg SQ 06/28/2016 10/25/2016 Inactive Vitamin D3 2,000 unit tablet RxNorm: 599241 1 Tablet(s) PO daily 06/08/2016 11/23/2016 Inactive triamcinolone acetonide 0.025 % lotion RxNorm: 8503478 1 Application TOP BID 04/14/2016 No Stop Date Active Xarelto 20 mg tablet RxNorm: 2637546 1 Tablet(s) PO daily 04/1411/07/2016 Inactive doxycycline hyclate 100 mg tablet RxNorm: 069311 1 Tablet(s) PO BID 04/14/2016 04/23/2016 Inactive Synthroid 50 mcg tablet RxNorm: 379966 1 Tablet(s) PO daily TAKE 1 TABLET BY MOUTH DAILY 12/25/2015 07/21/2016 Inactive flecainide 50 mg tablet RxNorm: 720831 1 Tablet(s) PO BID 07/0806/07/2016 Inactive aspirin 81 mg chewable tablet RxNorm: 868587 1 Tablet(s) PO daily 07/08/2015 06/07/2016 Inactive Cartia XT 120 mg capsule,extended release RxNorm: 363407 1 Capsule(s) PO daily 07/08/2015 01/09/2017 Inactive Xarelto 20 mg tablet RxNorm: 6660360 1 Tablet(s) PO daily 07/0802/02/2016 Inactive Synthroid 50 mcg tablet RxNorm: 052279 1 Tablet(s) PO daily TAKE 1 TABLET BY MOUTH DAILY 06/02/2015 12/24/2015 Inactive ceftriaxone 250 mg solution for injection RxNorm: 519493 Inj 08/22/2014 Inactive Bactrim DS 800 mg-160 mg tablet RxNorm: 992842 1 Tablet(s) PO BID 08/22/2014 08/28/2014 Inactive Bactrim DS 800 mg-160 mg tablet RxNorm: 702402 1 Tablet(s) PO BID 08/22/2014 08/21/2014 Inactive Pyridium 200 mg tablet RxNorm: 4538356 1 Tablet(s) PO TID PRN 08/22/2014 01/11/2017 Inactive Synthroid 50 mcg tablet RxNorm: 505885 1 Tablet(s) PO daily TAKE 1 TABLET BY MOUTH DAILY 05/20/2014 05/19/2014 Inactive 11/22/2013 11:35:24 AM Synthroid 50 mcg tablet RxNorm: 924440 TAKE 1 TABLET BY MOUTH DAILY 05/20/2014 05/14/2015 Inactive Synthroid 50 mcg tablet RxNorm: 251053 Tablet(s) PO TAKE 1 TABLET BY MOUTH DAILY 11/27/2013 05/19/2014 Inactive 11/22/2013 11:35:24 AM Synthroid 50 mcg tablet RxNorm: 004162 Tablet(s) PO TAKE 1 TABLET BY MOUTH DAILY 11/22/2013 11/26/2013 Inactive 11/22/2013 11:35:24 AM Elestrin 0.87 gram/actuation (0.06%) transdermal gel pump RxNorm: 079708 1 Application TD daily 10/22/20132014 Inactive Synthroid 50 mcg tablet RxNorm: 426365 Tablet(s) PO TAKE 1 TABLET BY MOUTH DAILY 04/24/2013 11/21/2013 Inactive 04/24/2013 3:04:31 PM Pennsaid 1.5 % Topical Drops RxNorm: 215973 30 Drop(s) TOP QID 04/23/2013 04/28/2014 Inactive Synthroid 50 mcg tablet RxNorm: 279188 Tablet(s) PO TAKE 1 TABLET BY MOUTH DAILY 01/22/2013 04/23/2013 Inactive Premarin 0.625 mg tablet RxNorm: 603302 1 Tablet(s) PO daily 10/21/2013 Inactive Synthroid 50 mcg tablet RxNorm: 426918 1 Tablet(s) PO daily 08/201201/07/2013 Inactive pantoprazole 40 mg tablet,delayed release RxNorm: 103624 1 Tablet(s) PO daily No Start Date Active Vitamin B-12 1,000 mcg tablet RxNorm: 134617 1 Tablet(s) PO QHS No Start Date Active Cartia XT 120 mg capsule,extended release RxNorm: 396177 1 Capsule(s) PO daily - Restarted by Dr. Ocasio No Start Date Active pravastatin 10 mg tablet RxNorm: 382069 1 Tablet(s) PO QHS No Start Date Active Fish Oil 900 mg-1,400 mg capsule,delayed release RxNorm: 1 Capsule(s) PO TID No Start Date Active aspirin 325 mg tablet RxNorm: 061069 1 Tablet(s) PO daily No Start Date Active Zyrtec 10 mg tablet RxNorm: 9478490 1 Tablet(s) PO daily No Start Date Active Nasonex 50 mcg/actuation [place] RxNorm: 370116 2 [place] NASAL PRN No Start Date 04/28/2014 Inactive aspirin 325 mg tablet RxNorm: 776687 1 Tablet(s) PO daily No Start Date 07/07/2015 Inactive Benefiber (wheat dextrin) oral RxNorm: 233904 oral No Start Date 12/12/2017 Inactive Premarin 0.625 mg tablet RxNorm: 577653 1 Tablet(s) PO daily No Start Date 12/11/2012 Inactive Zyrtec 10 mg tablet RxNorm: 1078361 1 Tablet(s) PO PRN No Start Date 04/28/2014 Inactive diltiazem 60 mg tablet RxNorm: 337908 1 Tablet(s) PO PRN No Start Date 07/07/2015 Inactive Xopenex 1.25 mg/3 mL Neb Solution RxNorm: 808984 3 Milliliter(s) INH PRN No Start Date 04/28/2014 Inactive Pyridium 200 mg tablet RxNorm: 9834700 1 Tablet(s) PO TID PRN No Start Date 08/21/2014 Inactive hydrocodone 5 mg-acetaminophen 325 mg tablet RxNorm: 403759 1 Tablet(s) PO Q6 PRN No Start Date 04/28/2014 Inactive Pepcid AC 10 mg chewable tablet RxNorm: 803293 1 Tablet(s) PO PRN No Start Date 06/07/2016 Inactive Tamiflu 75 mg capsule RxNorm: 164845 1 Capsule(s) PO daily No Start Date 01/16/2017 Inactive ProAir HFA 90 mcg/actuation Aerosol Inhaler RxNorm: 470311 1 Puff(s) INH PRN No Start Date 04/28/2014 Inactive Vitamin D3 1,000 unit tablet RxNorm: 758181 1 Tablet(s) PO daily No Start Date 06/07/2016 Inactive levothyroxine 50 mcg capsule RxNorm: 326138 1 Capsule(s) PO daily No Start Date 10/10/2012 Inactive alendronate 70 mg tablet RxNorm: 223414 1 Tablet(s) PO QW takes on No Start Date 04/28/2014 Inactive Xarelto 20 mg tablet RxNorm: 9131730 1 Tablet(s) PO daily No Start Date 01/06/2015 Inactive Flexeril 5 mg tablet RxNorm: 610086 1/2 Tablet(s) PO Q6 PRN No Start Date 04/28/2014 Inactive Singulair 10 mg tablet RxNorm: 581018 1 Tablet(s) PO PRN No Start Date 04/28/2014 Inactive Medication Administered Medication Codes Instructions Start Date Status ceftriaxone 250 mg solution for injection RxNorm: 262612 08/22/2014 No longer Active Immunizations Vaccine Codes Date Status Influenza CVX: 141 08/23/2016 completed Influenza CVX: 141 08/03/2013 completed Influenza CVX: 141 07/29/2012 completed Pneumococcal CVX: 33 07/29/2012 completed zostavax CVX: 121 09/13/2011 completed Tetanus/Diptheria CVX: 28 04/22/2011 completed Assessments Condition Codes Effective Dates Atrophy of thyroid (acquired) ICD-10: E03.4 ICD-9: 244.8 12/13/2017 Other specified cardiac arrhythmias ICD-10: I49.8 ICD-9: 427.89 12/13/2017 Mixed hyperlipidemia ICD-10: E78.2 ICD-9: 272.2 12/13/2017 Encounter for general adult medical examination with abnormal findings ICD-10: Z00.01 ICD-9: V70.0 01/24/2017 Pain in right foot ICD-10: M79.671 ICD-9: 729.5 12/24/2016 Age-related osteoporosis without current pathological fracture ICD-10: M81.0 ICD-9: 733.00 11/23/2016 Hypothyroidism, unspecified ICD-10: E03.9 ICD-9: 244.9 06/08/2016 Cutaneous abscess of chest wall ICD-10: L02.213 ICD-9: 682.2 04/14/2016 Gastro-esophageal reflux disease without esophagitis ICD-10 : K21.9 ICD-9: 530.81 02/10/2016 Unspecified atrial fibrillation ICD-10: I48.91 ICD-9: 427.31 11/11/2015 Other fatigue ICD-10: R53.83 ICD-9: 780.79 09/10/2015 HYPOTHYROIDISM ICD-9: 244.9 07/08/2015 Hyperlipidemia ICD-9: 272.4 07/08/2015 ATRIAL FIBRILLATION ICD-9: 427.31 2014 Elevated blood sugar ICD-9: 790.29 2013 UTI ICD-9: 599.0 08/22/2014 Benign mole ICD-9: 216.9 06/12/2013 Sacroiliitis ICD-9: 720.2 04/23/2013 Osteoarthritis ICD-9: 715.90 04/23/2013 DIARRHEA ICD-9: 787.91 04/23/2013 Abdominal pain ICD-9: 789.00 01/31/2013 Reason For Visit Reason For Visit Effective Dates Notes hypothyroid 12/13/2017 hypothyroid 08/08/2017 hypothyroid 04/11/2017 Annual Medicare Wellness Exam 01/24/2017 foot pain 12/24/2016 hypothyroid 10/11/2016 abnormal test results 06/28/2016 arrhythmia 06/08/2016 arthropod bite 04/14/2016 arrhythmia 02/10/2016 arrhythmia 11/11/2015 Hospital Follow Up 09/10/2015 arrhythmia 07/08/2015 arrhythmia 01/07/2015 arrhythmia 11/05/2014 arrhythmia 09/16/2014 dysuria 08/22/2014 hypothyroid 04/29/2014 arrhythmia 10/22/2013 diarrhea 04/23/2013 diarrhea 01/31/2013 arrhythmia 10/10/2012 Results Observation Observation Code Item Item Code Result Date Hepatic Qyh836 ALBUMIN 4.3 g/dL 09/20/2017 Hepatic Efa822 TPRO 6.9 g/dL 09/20/2017 Hepatic Wpb150 GLOB 2.7 g/dL 09/20/2017 Hepatic Zpv597 A/G Ratio 1.6 Ratio 09/20/2017 Hepatic Ezt760 ALK PHOS 100 U/L 09/20/2017 Hepatic Lvu215 ALT(SGPT) 29 U/L 09/20/2017 Hepatic Xch856 AST(SGOT) 26 U/L 09/20/2017 Hepatic Fiu422 BILI T 1.7 mg/dL 09/20/2017 Hepatic Vwc144 BILI D 0.3 mg/dL 09/20/2017 Hepatic Lky871 BILI I 1.4 mg/dL 09/20/2017 Lipid Ord30 CHOL 181 mg/dL 09/20/2017 Lipid Ord30 HDL 57.0 mg/dl 09/20/2017 Lipid Ord30 TRIG 139 mg/dL 09/20/2017 Lipid Ord30 LDL 96 mg/dL 09/20/2017 Lipid Ord30 C/HDL 3.2 Ratio 09/20/2017 Tsh Ord6 hTSH II 1.67 uIU/mL 08/08/2017 Free T4 Lyz709 FREE T4 1.13 ng/dL 08/08/2017 Cbc With Differential Ord2 WBC 5.05 K/ul 04/06/2017 Cbc With Differential Ord2 RBC 3.95 M/ul 04/06/2017 Cbc With Differential Ord2 HGB 12.9 g/dl 04/06/2017 Cbc With Differential Ord2 Neut% 48.3 % 04/06/2017 Cbc With Differential Ord2 HCT 38.1 % 04/06/2017 Cbc With Differential Ord2 MCV 96.5 fl 04/06/2017 Cbc With Differential Ord2 Lymph% 38.6 % 04/06/2017 Cbc With Differential Ord2 MCH 32.7 pg 04/06/2017 Cbc With Differential Ord2 [place]% 10.3 % 04/06/2017 Cbc With Differential Ord2 MCHC 33.9 pg 04/06/2017 Cbc With Differential Ord2 Eos% 2.6 % 04/06/2017 Cbc With Differential Ord2 PLT 198 K/ul 04/06/2017 Cbc With Differential Ord2 Baso% 0.2 % 04/06/2017 Cbc With Differential Ord2 RDW 13.1 % 04/06/2017 Cbc With Differential Ord2 Neut ABS# 2.44 K/ul 04/06/2017 Cbc With Differential Ord2 Lymph ABS# 1.95 K/ul 04/06/2017 Cbc With Differential Ord2 [place] ABS# 0.5 K/ul 04/06/2017 Cbc With Differential Ord2 Eos ABS# 0.1 K/ul 04/06/2017 Cbc With Differential Ord2 Baso ABS# 0.0 K/ul 04/06/2017 Tsh Ord6 hTSH II 2.58 uIU/mL 04/06/2017 Free T4 Wkq186 FREE T4 0.89 ng/dL 04/06/2017 Comp Metabolic Hyw185 NA 142 mEq/L 04/06/2017 Comp Metabolic Uit734 K 3.9 mEq/L 04/06/2017 Comp Metabolic Ggn049 CL 106 mEq/L 04/06/2017 Comp Metabolic Ptx198 CO2 26.0 mEq/L 04/06/2017 Comp Metabolic Ous358 ANION GAP 14 04/06/2017 Comp Metabolic Vva881 GLUCOSE 84 mg/dL 04/06/2017 Comp Metabolic Xtj805 Creat 0.7 mg/dL 04/06/2017 Comp Metabolic Fpx401 eGFR 87 ml/min/1.73m2 04/06/2017 Comp Metabolic Gnp162 BUN 21 mg/dL 04/06/2017 Comp Metabolic Dwb843 B/C Ratio 30.0 Ratio 04/06/2017 Comp Metabolic Uhu689 CALCIUM 9.3 mg/dL 04/06/2017 Comp Metabolic Yyt414 ALK PHOS 97 U/L 04/06/2017 Comp Metabolic Rld894 AST(SGOT) 21 U/L 04/06/2017 Comp Metabolic Xvl781 ALT(SGPT) 17 U/L 04/06/2017 Comp Metabolic Nit073 BILI T 1.5 mg/dL 04/06/2017 Comp Metabolic Ngs936 ALBUMIN 3.9 g/dL 04/06/2017 Comp Metabolic Bcm268 TPRO 6.4 g/dL 04/06/2017 Comp Metabolic Egb564 GLOB 2.5 g/dL 04/06/2017 Comp Metabolic Lzx055 A/G Ratio 1.5 Ratio 04/06/2017 Comp Metabolic Zna137 Osmo 285 mOsmo 04/06/2017 Lipid Ord30 CHOL 176 mg/dL 04/06/2017 Lipid Ord30 HDL 54.0 mg/dl 04/06/2017 Lipid Ord30 TRIG 76 mg/dL 04/06/2017 Lipid Ord30 LDL 107 mg/dL 04/06/2017 Lipid Ord30 C/HDL 3.3 Ratio 04/06/2017 Free T4 Ars601 FREE T4 1.01 ng/dL 10/07/2016 Tsh Ord6 hTSH II 1.94 uIU/mL 10/07/2016 Cbc With Differential Ord2 WBC 4.93 K/ul 10/07/2016 Cbc With Differential Ord2 RBC 4.09 M/ul 10/07/2016 Cbc With Differential Ord2 HGB 13.3 g/dl 10/07/2016 Cbc With Differential Ord2 HCT 39.6 % 10/07/2016 Cbc With Differential Ord2 Neut% 53.3 % 10/07/2016 Cbc With Differential Ord2 MCV 96.8 fl 10/07/2016 Cbc With Differential Ord2 Lymph% 33.1 % 10/07/2016 Cbc With Differential Ord2 MCH 32.5 pg 10/07/2016 Cbc With Differential Ord2 [place]% 12.0 % 10/07/2016 Cbc With Differential Ord2 MCHC 33.6 pg 10/07/2016 Cbc With Differential Ord2 Eos% 1.2 % 10/07/2016 Cbc With Differential Ord2 Baso% 0.4 % 10/07/2016 Cbc With Differential Ord2 PLT 226 K/ul 10/07/2016 Cbc With Differential Ord2 RDW 13.1 % 10/07/2016 Cbc With Differential Ord2 Neut ABS# 2.63 K/ul 10/07/2016 Cbc With Differential Ord2 Lymph ABS# 1.63 K/ul 10/07/2016 Cbc With Differential Ord2 [place] ABS# 0.6 K/ul 10/07/2016 Cbc With Differential Ord2 Eos ABS# 0.1 K/ul 10/07/2016 Cbc With Differential Ord2 Baso ABS# 0.0 K/ul 10/07/2016 Lipid Ord30 CHOL 176 mg/dL 10/07/2016 Lipid Ord30 HDL 57.0 mg/dl 10/07/2016 Lipid Ord30 TRIG 92 mg/dL 10/07/2016 Lipid Ord30 LDL 101 mg/dL 10/07/2016 Lipid Ord30 C/HDL 3.1 Ratio 10/07/2016 Comp Metabolic Mkx997 NA 140 mEq/L 10/07/2016 Comp Metabolic Obe195 K 4.0 mEq/L 10/07/2016 Comp Metabolic Snf089 CL 104 mEq/L 10/07/2016 Comp Metabolic Roa528 CO2 30.0 mEq/L 10/07/2016 Comp Metabolic Ptk902 ANION GAP 10 10/07/2016 Comp Metabolic Ncf611 GLUCOSE 86 mg/dL 10/07/2016 Comp Metabolic Gmu513 Creat 0.8 mg/dL 10/07/2016 Comp Metabolic Zuv137 eGFR 77 ml/min/1.73m2 10/07/2016 Comp Metabolic Byq363 BUN 21 mg/dL 10/07/2016 Comp Metabolic Kss849 B/C Ratio 26.9 Ratio 10/07/2016 Comp Metabolic Hpb691 CALCIUM 10.1 mg/dL 10/07/2016 Comp Metabolic Amj145 ALK PHOS 94 U/L 10/07/2016 Comp Metabolic Hvz020 AST(SGOT) 23 U/L 10/07/2016 Comp Metabolic Cio084 ALT(SGPT) 20 U/L 10/07/2016 Comp Metabolic Hwn086 BILI T 1.6 mg/dL 10/07/2016 Comp Metabolic Afi790 ALBUMIN 4.3 g/dL 10/07/2016 Comp Metabolic Mnb620 TPRO 7.2 g/dL 10/07/2016 Comp Metabolic Mip357 GLOB 2.9 g/dL 10/07/2016 Comp Metabolic Lcf825 A/G Ratio 1.5 Ratio 10/07/2016 Comp Metabolic Mnp089 Osmo 282 mOsmo 10/07/2016 Tsh Ord6 hTSH II 1.76 uIU/mL 06/04/2016 Free T4 Jup345 FREE T4 0.95 ng/dL 06/04/2016 Comp Metabolic Shn403 NA 139 mEq/L 02/04/2016 Comp Metabolic Cxj488 K 3.7 mEq/L 02/04/2016 Comp Metabolic Xxw533 CL 104 mEq/L 02/04/2016 Comp Metabolic Rgg707 CO2 29.0 mEq/L 02/04/2016 Comp Metabolic Der506 ANION GAP 10 02/04/2016 Comp Metabolic Pla767 GLUCOSE 83 mg/dL 02/04/2016 Comp Metabolic Shp340 Creat 0.8 mg/dL 02/04/2016 Comp Metabolic Fjn998 eGFR 76 ml/min/1.73m2 02/04/2016 Comp Metabolic Zgu333 BUN 23 mg/dL 02/04/2016 Comp Metabolic Tjk261 B/C Ratio 29.1 Ratio 02/04/2016 Comp Metabolic Epk568 CALCIUM 9.4 mg/dL 02/04/2016 Comp Metabolic Gxk073 ALK PHOS 69 U/L 02/04/2016 Comp Metabolic Xyg456 AST(SGOT) 23 U/L 02/04/2016 Comp Metabolic Hur126 ALT(SGPT) 20 U/L 02/04/2016 Comp Metabolic Tfn244 BILI T 1.4 mg/dL 02/04/2016 Comp Metabolic Gdi083 ALBUMIN 4.3 g/dL 02/04/2016 Comp Metabolic Fmw428 TPRO 7.0 g/dL 02/04/2016 Comp Metabolic Eil220 GLOB 2.8 g/dL 02/04/2016 Comp Metabolic Euq480 A/G Ratio 1.5 Ratio 02/04/2016 Comp Metabolic Fwy169 Osmo 280 mOsmo 02/04/2016 T4 Ord4 T4 12.0 ug/dL 02/04/2016 Total T3 Ord42 TT3 1.46 ng/ml 02/04/2016 Tsh Ord6 hTSH II 1.76 uIU/mL 02/04/2016 Lipid Ord30 CHOL 177 mg/dL 02/04/2016 Lipid Ord30 HDL 63.0 mg/dl 02/04/2016 Lipid Ord30 TRIG 77 mg/dL 02/04/2016 Lipid Ord30 LDL 99 mg/dL 02/04/2016 Lipid Ord30 C/HDL 2.8 Ratio 02/04/2016 Cbc With Differential Ord2 WBC 5.60 K/ul 02/04/2016 Cbc With Differential Ord2 RBC 4.17 M/ul 02/04/2016 Cbc With Differential Ord2 HGB 13.2 g/dl 02/04/2016 Cbc With Differential Ord2 Neut% 53.9 % 02/04/2016 Cbc With Differential Ord2 HCT 40.0 % 02/04/2016 Cbc With Differential Ord2 MCV 95.9 fl 02/04/2016 Cbc With Differential Ord2 Lymph% 33.4 % 02/04/2016 Cbc With Differential Ord2 MCH 31.7 pg 02/04/2016 Cbc With Differential Ord2 [place]% 10.5 % 02/04/2016 Cbc With Differential Ord2 MCHC 33.0 pg 02/04/2016 Cbc With Differential Ord2 Eos% 1.8 % 02/04/2016 Cbc With Differential Ord2 PLT 237 K/ul 02/04/2016 Cbc With Differential Ord2 Baso% 0.4 % 02/04/2016 Cbc With Differential Ord2 RDW 13.7 % 02/04/2016 Cbc With Differential Ord2 Neut ABS# 3.02 K/ul 02/04/2016 Cbc With Differential Ord2 Lymph ABS# 1.87 K/ul 02/04/2016 Cbc With Differential Ord2 [place] ABS# 0.6 K/ul 02/04/2016 Cbc With Differential Ord2 Eos ABS# 0.1 K/ul 02/04/2016 Cbc With Differential Ord2 Baso ABS# 0.0 K/ul 02/04/2016 Cbc With Differential Ord2 New Analyzer Notice Please note new ref ranges starting 11-12-2015 due to implemntation of new five part differential hematolgy analyzer. 02/04/2016 Lipid Ord30 CHOL 175 mg/dL 07/02/2015 Lipid Ord30 HDL 53.0 mg/dl 07/02/2015 Lipid Ord30 TRIG 106 mg/dL 07/02/2015 Lipid Ord30 LDL 101 mg/dL 07/02/2015 Lipid Ord30 C/HDL 3.3 Ratio 07/02/2015 T4 Ord4 T4 9.2 ug/dL 07/02/2015 Tsh Ord6 hTSH II 2.28 uIU/mL 07/02/2015 Cbc With Differential Ord2 WBC 4.9 K/uL 07/02/2015 Cbc With Differential Ord2 LYM 1.7 K/uL 07/02/2015 Cbc With Differential Ord2 LYM% 34.4 % 07/02/2015 Cbc With Differential Ord2 NEUT/GRAN 2.9 K/uL 07/02/2015 Cbc With Differential Ord2 NEUT/GRAN % 58.8 % 07/02/2015 Cbc With Differential Ord2 MID 0.3 K/uL 07/02/2015 Cbc With Differential Ord2 MID% 6.8 % 07/02/2015 Cbc With Differential Ord2 RBC 4.10 M/uL 07/02/2015 Cbc With Differential Ord2 HGB 13.1 g/dL 07/02/2015 Cbc With Differential Ord2 HCT 39.6 % 07/02/2015 Cbc With Differential Ord2 MCV 97 fL 07/02/2015 Cbc With Differential Ord2 MCH 32 pg 07/02/2015 Cbc With Differential Ord2 MCHC 33 g/dL 07/02/2015 Cbc With Differential Ord2 PLT 197 K/uL 07/02/2015 Cbc With Differential Ord2 RDW 14.5 % 07/02/2015 Total T3 Ord42 TT3 1.3 ng/ml 07/02/2015 Comp Metabolic Uyr693 NA 137 mEq/L 07/02/2015 Comp Metabolic Nbq033 K 4.0 mEq/L 07/02/2015 Comp Metabolic Hqe136 CL 104 mEq/L 07/02/2015 Comp Metabolic Utx408 CO2 28.0 mEq/L 07/02/2015 Comp Metabolic Vnd552 ANION GAP 9 07/02/2015 Comp Metabolic Cob863 GLUCOSE 81 mg/dL 07/02/2015 Comp Metabolic Rkx762 Creat 0.7 mg/dL 07/02/2015 Comp Metabolic Sdv940 eGFR 85 ml/min/1.73m2 07/02/2015 Comp Metabolic Vpv930 BUN 19 mg/dL 07/02/2015 Comp Metabolic Ijv650 B/C Ratio 26.4 Ratio 07/02/2015 Comp Metabolic Ogp461 CALCIUM 9.2 mg/dL 07/02/2015 Comp Metabolic Ndt755 ALK PHOS 69 U/L 07/02/2015 Comp Metabolic Zss997 AST(SGOT) 24 U/L 07/02/2015 Comp Metabolic Hri759 ALT(SGPT) 21 U/L 07/02/2015 Comp Metabolic Bbo021 BILI T 1.8 mg/dL 07/02/2015 Comp Metabolic Evv499 ALBUMIN 4.1 g/dL 07/02/2015 Comp Metabolic Gmx425 TPRO 6.8 g/dL 07/02/2015 Comp Metabolic Xnt993 GLOB 2.7 g/dL 07/02/2015 Comp Metabolic Vsq478 A/G Ratio 1.5 Ratio 07/02/2015 Comp Metabolic Gfq701 Osmo 275 mOsmo 07/02/2015 Review of Systems System Result Effective Dates Constitutional No recent illness 2017 Constitutional No night sweats 2017 Constitutional No chills 12/13/2017 Constitutional No diaphoresis 12/13/2017 Constitutional fatigue 12/13/2017 Constitutional No malaise 12/13/2017 Ears/Nose/Throat/Neck No dizziness 2017 Ears/Nose/Throat/Neck No headache 2017 Cardiovascular No chest pain/pressure Cardiovascular No dyspnea 12/13/2017 Respiratory No cough 12/13/2017 Gastrointestinal No abdominal pain 2017 Gastrointestinal No nausea 12/13/2017 Gastrointestinal No vomiting 12/13/2017 Musculoskeletal No joint complaint 2017 Dermatologic No rash 12/13/2017 Dermatologic No sores 12/13/2017 Neurologic No alteration of consciousness 12/13/2017 Psychiatric No anxiety 12/13/2017 Psychiatric No depression 12/13/2017 Constitutional No recent illness 2016 Constitutional No night sweats 2016 Constitutional No chills 08/08/2017 Constitutional No diaphoresis 08/08/2017 Constitutional fatigue 08/08/2017 Constitutional No malaise 08/08/2017 Ears/Nose/Throat/Neck No dizziness 2016 Ears/Nose/Throat/Neck No headache 2016 Cardiovascular No chest pain/pressure 07/2017 Cardiovascular No dyspnea 08/08/2017 Respiratory No cough 08/08/2017 Gastrointestinal No abdominal pain 2016 Gastrointestinal No nausea 08/08/2017 Gastrointestinal No vomiting 08/08/2017 Musculoskeletal No joint complaint 2016 Dermatologic No rash 08/08/2017 Dermatologic No sores 08/08/2017 Neurologic No alteration of consciousness 08/08/2017 Psychiatric No anxiety 08/08/2017 Psychiatric No depression 08/08/2017 Constitutional No recent illness 2016 Constitutional No night sweats 2016 Constitutional No chills 04/11/2017 Constitutional No diaphoresis 04/11/2017 Constitutional fatigue 04/11/2017 Constitutional No malaise 04/11/2017 Eyes No eye discharge 04/11/2017 Eyes No eye erythema 04/11/2017 Ears/Nose/Throat/Neck No dizziness 2016 Ears/Nose/Throat/Neck No headache 2016 Cardiovascular No chest pain/pressure 09/2017 Cardiovascular No dyspnea 04/11/2017 Respiratory No cough 04/11/2017 Gastrointestinal No abdominal pain 2016 Gastrointestinal No nausea 04/11/2017 Gastrointestinal No vomiting 04/11/2017 Genitourinary/Nephrology No dysuria 04/11 Musculoskeletal No joint complaint 2016 Dermatologic No rash 04/11/2017 Dermatologic No sores 04/11/2017 Neurologic No alteration of consciousness 04/11/2017 Psychiatric No anxiety 04/11/2017 Psychiatric No depression 04/11/2017 Constitutional No recent illness 2016 Constitutional No fever 01/24/2017 Eyes No eye erythema 01/24/2017 Ears/Nose/Throat/Neck No nasal discharge 01/24/2017 Ears/Nose/Throat/Neck No nasal allergies 01/24/2017 Cardiovascular No chest pain/pressure Respiratory No cough 01/24/2017 Respiratory No dyspnea 01/24/2017 Neurologic No alteration of consciousness 01/24/2017 Neurologic No mental status change 2016 Constitutional No recent illness 2016 Constitutional No anorexia 12/24/2016 Constitutional No night sweats 2016 Constitutional No chills 12/24/2016 Constitutional No diaphoresis 12/24/2016 Constitutional No fatigue 12/24/2016 Constitutional No fever 12/24/2016 Constitutional No insomnia 12/24/2016 Constitutional No malaise 12/24/2016 Constitutional No weight loss 12/24/2016 Constitutional No weight gain 12/24/2016 Constitutional No obesity 12/24/2016 Eyes No eye pain 12/24/2016 Eyes No vision change 12/24/2016 Ears/Nose/Throat/Neck No dizziness 2016 Ears/Nose/Throat/Neck No headache 2016 Cardiovascular No chest pain/pressure Cardiovascular No dyspnea 12/24/2016 Cardiovascular No fatigue 12/24/2016 Respiratory No chest congestion 2016 Respiratory No chest tightness 2016 Respiratory No cigarette smoking 2016 Respiratory No cough 12/24/2016 Gastrointestinal No anorexia 12/24/2016 Gastrointestinal No constipation 2016 Gastrointestinal No abdominal pain 2016 Gastrointestinal No diarrhea 12/24/2016 Gastrointestinal No nausea 12/24/2016 Gastrointestinal No vomiting 12/24/2016 Genitourinary/Nephrology No dysuria 12/24 Genitourinary/Nephrology No anuria/oliguria 12/24/2016 Musculoskeletal stiffness 12/24/2016 Musculoskeletal swelling 12/24/2016 Musculoskeletal No arthralgia(s) 2016 Musculoskeletal No back pain 12/24/2016 Dermatologic No rash 12/24/2016 Dermatologic No sores 12/24/2016 Neurologic No alteration of consciousness 12/24/2016 Neurologic No headache 12/24/2016 Neurologic No mental status change 2016 Psychiatric No anxiety 12/24/2016 Psychiatric No depression 12/24/2016 Endocrine No polydipsia 12/24/2016 Endocrine No polyuria 12/24/2016 Hematologic/Lymphatic No abnormal ecchymoses 12/24/2016 Hematologic/Lymphatic No abnormal bleeding and bruising 12/24/2016 Constitutional No recent illness 2016 Constitutional No fatigue 11/23/2016 Musculoskeletal osteoporosis 11/23/2016 Constitutional No recent illness 2015 Constitutional No night sweats 2015 Constitutional No chills 10/11/2016 Constitutional No diaphoresis 10/11/2016 Constitutional fatigue 10/11/2016 Constitutional No malaise 10/11/2016 Eyes No eye discharge 10/11/2016 Eyes No eye erythema 10/11/2016 Ears/Nose/Throat/Neck No dizziness 2015 Ears/Nose/Throat/Neck No headache 2015 Cardiovascular No chest pain/pressure 09/2016 Cardiovascular No dyspnea 10/11/2016 Respiratory No cough 10/11/2016 Gastrointestinal No abdominal pain 2015 Gastrointestinal No nausea 10/11/2016 Gastrointestinal No vomiting 10/11/2016 Genitourinary/Nephrology No dysuria 10/11 Musculoskeletal No joint complaint 2015 Dermatologic No rash 10/11/2016 Dermatologic No sores 10/11/2016 Neurologic No alteration of consciousness 10/11/2016 Psychiatric No anxiety 10/11/2016 Psychiatric No depression 10/11/2016 Cardiovascular palpitations 10/11/2016 Constitutional weight loss 10/11/2016 Constitutional No recent illness 2015 Constitutional No fatigue 06/28/2016 Constitutional No fever 06/28/2016 Musculoskeletal No stiffness 06/28/2016 Musculoskeletal osteoporosis 06/28/2016 Constitutional No recent illness 2015 Constitutional No night sweats 2015 Constitutional No chills 06/08/2016 Constitutional No diaphoresis 06/08/2016 Constitutional fatigue 06/08/2016 Constitutional No malaise 06/08/2016 Eyes No eye discharge 06/08/2016 Eyes No eye erythema 06/08/2016 Ears/Nose/Throat/Neck No dizziness 2015 Ears/Nose/Throat/Neck No headache 2015 Cardiovascular No chest pain/pressure 07/2016 Cardiovascular No dyspnea 06/08/2016 Respiratory No cough 06/08/2016 Gastrointestinal No abdominal pain 2015 Gastrointestinal No nausea 06/08/2016 Gastrointestinal No vomiting 06/08/2016 Genitourinary/Nephrology No dysuria 06/08 Musculoskeletal No joint complaint 2015 Dermatologic No rash 06/08/2016 Dermatologic No sores 06/08/2016 Neurologic No alteration of consciousness 06/08/2016 Psychiatric No anxiety 06/08/2016 Psychiatric No depression 06/08/2016 Constitutional No recent illness 2015 Eyes No eye discharge 04/14/2016 Eyes No eye erythema 04/14/2016 Cardiovascular No chest pain/pressure Cardiovascular No dyspnea 04/14/2016 Gastrointestinal No nausea 04/14/2016 Gastrointestinal No vomiting 04/14/2016 Musculoskeletal No joint complaint 2015 Dermatologic No rash 04/14/2016 Dermatologic No sores 04/14/2016 Neurologic No alteration of consciousness 04/14/2016 Psychiatric No anxiety 04/14/2016 Psychiatric No depression 04/14/2016 Constitutional No fever 04/14/2016 Ears/Nose/Throat/Neck No nasal allergies 04/14/2016 Ears/Nose/Throat/Neck No nasal discharge 04/14/2016 Respiratory No dyspnea 04/14/2016 Respiratory No cough 04/14/2016 Gastrointestinal No diarrhea 04/14/2016 Gastrointestinal No constipation 2015 Neurologic No mental status change 2015 Constitutional No recent illness 2015 Constitutional No night sweats 2015 Constitutional No chills 02/10/2016 Constitutional No diaphoresis 02/10/2016 Constitutional fatigue 02/10/2016 Constitutional No malaise 02/10/2016 Eyes No eye discharge 02/10/2016 Eyes No eye erythema 02/10/2016 Ears/Nose/Throat/Neck No dizziness 2015 Ears/Nose/Throat/Neck No headache 2015 Cardiovascular No chest pain/pressure 09/2016 Cardiovascular No dyspnea 02/10/2016 Respiratory No cough 02/10/2016 Gastrointestinal No abdominal pain 2015 Gastrointestinal No nausea 02/10/2016 Gastrointestinal No vomiting 02/10/2016 Genitourinary/Nephrology No dysuria 02/09 Musculoskeletal No joint complaint 2015 Dermatologic No rash 02/10/2016 Dermatologic No sores 02/10/2016 Neurologic No alteration of consciousness 02/10/2016 Psychiatric No anxiety 02/10/2016 Psychiatric No depression 02/10/2016 Constitutional No recent illness 2015 Constitutional No night sweats 2015 Constitutional No chills 11/11/2015 Constitutional No diaphoresis 11/11/2015 Constitutional fatigue 11/11/2015 Constitutional No malaise 11/11/2015 Eyes No eye discharge 11/11/2015 Eyes No eye erythema 11/11/2015 Ears/Nose/Throat/Neck No dizziness 2015 Ears/Nose/Throat/Neck No headache 2015 Cardiovascular No chest pain/pressure 09/2016 Cardiovascular No dyspnea 11/11/2015 Respiratory No cough 11/11/2015 Gastrointestinal No abdominal pain 2015 Gastrointestinal No nausea 11/11/2015 Gastrointestinal No vomiting 11/11/2015 Genitourinary/Nephrology No dysuria 11/11 Musculoskeletal No joint complaint 2015 Dermatologic No rash 11/11/2015 Dermatologic No sores 11/11/2015 Neurologic No alteration of consciousness 11/11/2015 Psychiatric No anxiety 11/11/2015 Psychiatric No depression 11/11/2015 Constitutional No recent illness 2014 Constitutional No night sweats 2014 Constitutional No chills 09/10/2015 Constitutional No diaphoresis 09/10/2015 Constitutional fatigue 09/10/2015 Constitutional No malaise 09/10/2015 Eyes No eye discharge 09/10/2015 Eyes No eye erythema 09/10/2015 Ears/Nose/Throat/Neck No dizziness 2014 Ears/Nose/Throat/Neck No headache 2014 Cardiovascular No chest pain/pressure 08/2015 Cardiovascular No dyspnea 09/10/2015 Respiratory No cough 09/10/2015 Gastrointestinal No abdominal pain 2014 Gastrointestinal No nausea 09/10/2015 Gastrointestinal No vomiting 09/10/2015 Genitourinary/Nephrology No dysuria 09/10 Musculoskeletal No joint complaint 2014 Dermatologic No rash 09/10/2015 Dermatologic No sores 09/10/2015 Neurologic No alteration of consciousness 09/10/2015 Psychiatric No anxiety 09/10/2015 Psychiatric No depression 09/10/2015 Constitutional No recent illness 2014 Constitutional No night sweats 2014 Constitutional No chills 07/08/2015 Constitutional No diaphoresis 07/08/2015 Constitutional fatigue 07/08/2015 Constitutional No malaise 07/08/2015 Eyes No eye discharge 07/08/2015 Eyes No eye erythema 07/08/2015 Ears/Nose/Throat/Neck No dizziness 2014 Ears/Nose/Throat/Neck No headache 2014 Cardiovascular No chest pain/pressure 05/2015 Cardiovascular No dyspnea 07/08/2015 Respiratory No cough 07/08/2015 Gastrointestinal No abdominal pain 2014 Gastrointestinal No nausea 07/08/2015 Gastrointestinal No vomiting 07/08/2015 Musculoskeletal No joint complaint 2014 Dermatologic No rash 07/08/2015 Dermatologic No sores 07/08/2015 Neurologic No alteration of consciousness 07/08/2015 Psychiatric No anxiety 07/08/2015 Psychiatric No depression 07/08/2015 Genitourinary/Nephrology No dysuria 07/08 Constitutional No anorexia 01/07/2015 Constitutional No night sweats 2014 Constitutional No chills 01/07/2015 Constitutional No diaphoresis 01/07/2015 Constitutional fatigue 01/07/2015 Constitutional No fever 01/07/2015 Constitutional No insomnia 01/07/2015 Constitutional No malaise 01/07/2015 Eyes No eye discharge 01/07/2015 Eyes No eye erythema 01/07/2015 Ears/Nose/Throat/Neck No dizziness 2014 Ears/Nose/Throat/Neck No headache 2014 Cardiovascular No chest pain/pressure 07/2015 Cardiovascular No dyspnea 01/07/2015 Respiratory No cough 01/07/2015 Gastrointestinal No abdominal pain 2014 Gastrointestinal No nausea 01/07/2015 Gastrointestinal No vomiting 01/07/2015 Genitourinary/Nephrology No dysuria 01/07 Musculoskeletal No joint complaint 2014 Dermatologic No rash 01/07/2015 Dermatologic No sores 01/07/2015 Neurologic No alteration of consciousness 01/07/2015 Constitutional No recent illness 2014 Psychiatric No anxiety 01/07/2015 Psychiatric No depression 01/07/2015 Constitutional No recent illness 2014 Constitutional No chills 11/05/2014 Constitutional No fatigue 11/05/2014 Constitutional No fever 11/05/2014 Constitutional No insomnia 11/05/2014 Constitutional No malaise 11/05/2014 Eyes No blindness 11/05/2014 Eyes No vision change 11/05/2014 Ears/Nose/Throat/Neck No dental pain 03/2015 Ears/Nose/Throat/Neck No dizziness 2014 Ears/Nose/Throat/Neck No dysphagia 2014 Ears/Nose/Throat/Neck No headache 2014 Ears/Nose/Throat/Neck No hearing loss 03/2015 Ears/Nose/Throat/Neck No nasal allergies 11/05/2014 Ears/Nose/Throat/Neck No sore throat 03/2015 Ears/Nose/Throat/Neck No postnasal drip 11/05/2014 Ears/Nose/Throat/Neck No sinus congestion 11/05/2014 Respiratory No chest tightness 2014 Respiratory No cigarette smoking 2014 Respiratory No cough 11/05/2014 Respiratory No dyspnea 11/05/2014 Respiratory No pedal edema 11/05/2014 Respiratory No snoring 11/05/2014 Respiratory No wheezing 11/05/2014 Gastrointestinal No hemorrhoids 2014 Gastrointestinal No abdominal pain 2014 Gastrointestinal No constipation 2014 Gastrointestinal No diarrhea 11/05/2014 Gastrointestinal No gastroesophageal reflux 11/05/2014 Gastrointestinal No melena 11/05/2014 Gastrointestinal No nausea 11/05/2014 Gastrointestinal No vomiting 11/05/2014 Genitourinary/Nephrology No dysuria 11/05 Genitourinary/Nephrology No nocturia 03/2015 Genitourinary/Nephrology No urinary incontinence 11/05/2014 Musculoskeletal No stiffness 11/05/2014 Musculoskeletal No swelling 11/05/2014 Musculoskeletal No muscle weakness 2014 Musculoskeletal No myalgias 11/05/2014 Dermatologic No rash 11/05/2014 Dermatologic No scar 11/05/2014 Neurologic No dizziness 11/05/2014 Neurologic No headache 11/05/2014 Neurologic No neck pain 11/05/2014 Neurologic No syncope 11/05/2014 Psychiatric No anxiety 11/05/2014 Psychiatric No depression 11/05/2014 Constitutional recent illness 09/16/2014 Constitutional No anorexia 09/16/2014 Constitutional No night sweats 2013 Constitutional No chills 09/16/2014 Constitutional No diaphoresis 09/16/2014 Constitutional fatigue 09/16/2014 Constitutional No fever 09/16/2014 Constitutional No insomnia 09/16/2014 Constitutional No malaise 09/16/2014 Eyes No eye discharge 09/16/2014 Eyes No eye erythema 09/16/2014 Ears/Nose/Throat/Neck No dizziness 2013 Ears/Nose/Throat/Neck No headache 2013 Cardiovascular No chest pain/pressure Cardiovascular No dyspnea 09/16/2014 Respiratory No cough 09/16/2014 Gastrointestinal No abdominal pain 2013 Gastrointestinal No vomiting 09/16/2014 Gastrointestinal No nausea 09/16/2014 Genitourinary/Nephrology No dysuria 09/16 Musculoskeletal No joint complaint 2013 Dermatologic No rash 09/16/2014 Dermatologic No sores 09/16/2014 Neurologic No alteration of consciousness 09/16/2014 Constitutional recent illness 08/22/2014 Constitutional No anorexia 08/22/2014 Constitutional No night sweats 2013 Constitutional No chills 08/22/2014 Constitutional No fatigue 08/22/2014 Constitutional No diaphoresis 08/22/2014 Constitutional No fever 08/22/2014 Constitutional No insomnia 08/22/2014 Constitutional No malaise 08/22/2014 Gastrointestinal No abdominal pain 2013 Gastrointestinal No constipation 2013 Gastrointestinal No diarrhea 08/22/2014 Gastrointestinal No vomiting 08/22/2014 Gastrointestinal No nausea 08/22/2014 Musculoskeletal No joint complaint 2013 Dermatologic No sores 08/22/2014 Dermatologic No rash 08/22/2014 Constitutional No recent illness 2013 Constitutional No chills 04/29/2014 Constitutional No fatigue 04/29/2014 Constitutional No fever 04/29/2014 Constitutional No insomnia 04/29/2014 Constitutional No malaise 04/29/2014 Eyes No blindness 04/29/2014 Eyes No vision change 04/29/2014 Ears/Nose/Throat/Neck No dental pain Ears/Nose/Throat/Neck No dizziness 2013 Ears/Nose/Throat/Neck No dysphagia 2013 Ears/Nose/Throat/Neck No headache 2013 Ears/Nose/Throat/Neck No hearing loss Ears/Nose/Throat/Neck No nasal allergies 04/29/2014 Ears/Nose/Throat/Neck No sore throat Ears/Nose/Throat/Neck No postnasal drip 04/29/2014 Ears/Nose/Throat/Neck No sinus congestion 04/29/2014 Respiratory No chest tightness 2013 Respiratory No cigarette smoking 2013 Respiratory No cough 04/29/2014 Respiratory No dyspnea 04/29/2014 Respiratory No pedal edema 04/29/2014 Respiratory No snoring 04/29/2014 Respiratory No wheezing 04/29/2014 Gastrointestinal No hemorrhoids 2013 Gastrointestinal No abdominal pain 2013 Gastrointestinal No constipation 2013 Gastrointestinal No diarrhea 04/29/2014 Gastrointestinal No gastroesophageal reflux 04/29/2014 Gastrointestinal No melena 04/29/2014 Gastrointestinal No nausea 04/29/2014 Gastrointestinal No vomiting 04/29/2014 Genitourinary/Nephrology No dysuria 04/29 Genitourinary/Nephrology No nocturia Genitourinary/Nephrology No urinary incontinence 04/29/2014 Musculoskeletal No stiffness 04/29/2014 Musculoskeletal No swelling 04/29/2014 Musculoskeletal No muscle weakness 2013 Musculoskeletal No myalgias 04/29/2014 Dermatologic No rash 04/29/2014 Dermatologic No scar 04/29/2014 Neurologic No dizziness 04/29/2014 Neurologic No headache 04/29/2014 Neurologic No neck pain 04/29/2014 Neurologic No syncope 04/29/2014 Psychiatric No anxiety 04/29/2014 Psychiatric No depression 04/29/2014 Constitutional No recent illness 2012 Constitutional No chills 10/22/2013 Constitutional No fatigue 10/22/2013 Constitutional No fever 10/22/2013 Constitutional No insomnia 10/22/2013 Constitutional No malaise 10/22/2013 Eyes No blindness 10/22/2013 Eyes No vision change 10/22/2013 Ears/Nose/Throat/Neck No dental pain Ears/Nose/Throat/Neck No dizziness 2012 Ears/Nose/Throat/Neck No dysphagia 2012 Ears/Nose/Throat/Neck No headache 2012 Ears/Nose/Throat/Neck No hearing loss Ears/Nose/Throat/Neck No nasal allergies 10/22/2013 Ears/Nose/Throat/Neck No sore throat Ears/Nose/Throat/Neck No postnasal drip 10/22/2013 Ears/Nose/Throat/Neck No sinus congestion 10/22/2013 Respiratory No chest tightness 2012 Respiratory No cigarette smoking 2012 Respiratory No cough 10/22/2013 Respiratory No dyspnea 10/22/2013 Respiratory No pedal edema 10/22/2013 Respiratory No snoring 10/22/2013 Respiratory No wheezing 10/22/2013 Gastrointestinal No hemorrhoids 2012 Gastrointestinal No abdominal pain 2012 Gastrointestinal No constipation 2012 Gastrointestinal No diarrhea 10/22/2013 Gastrointestinal No gastroesophageal reflux 10/22/2013 Gastrointestinal No melena 10/22/2013 Gastrointestinal No nausea 10/22/2013 Gastrointestinal No vomiting 10/22/2013 Genitourinary/Nephrology No dysuria 10/22 Genitourinary/Nephrology No nocturia Genitourinary/Nephrology No urinary incontinence 10/22/2013 Musculoskeletal No stiffness 10/22/2013 Musculoskeletal No swelling 10/22/2013 Musculoskeletal No muscle weakness 2012 Musculoskeletal No myalgias 10/22/2013 Dermatologic No rash 10/22/2013 Dermatologic No scar 10/22/2013 Neurologic No dizziness 10/22/2013 Neurologic No headache 10/22/2013 Neurologic No neck pain 10/22/2013 Neurologic No syncope 10/22/2013 Psychiatric No anxiety 10/22/2013 Psychiatric No depression 10/22/2013 Constitutional No recent illness 2012 Constitutional No chills 04/23/2013 Constitutional No fatigue 04/23/2013 Constitutional No fever 04/23/2013 Constitutional No insomnia 04/23/2013 Constitutional No malaise 04/23/2013 Eyes No blindness 04/23/2013 Eyes No vision change 04/23/2013 Ears/Nose/Throat/Neck No dental pain Ears/Nose/Throat/Neck No dizziness 2012 Ears/Nose/Throat/Neck No dysphagia 2012 Ears/Nose/Throat/Neck No headache 2012 Ears/Nose/Throat/Neck No hearing loss Ears/Nose/Throat/Neck No nasal allergies 04/23/2013 Ears/Nose/Throat/Neck No sore throat Ears/Nose/Throat/Neck No postnasal drip 04/23/2013 Ears/Nose/Throat/Neck No sinus congestion 04/23/2013 Respiratory No chest tightness 2012 Respiratory No cigarette smoking 2012 Respiratory No cough 04/23/2013 Respiratory No dyspnea 04/23/2013 Respiratory No pedal edema 04/23/2013 Respiratory No snoring 04/23/2013 Respiratory No wheezing 04/23/2013 Genitourinary/Nephrology No urinary incontinence 04/23/2013 Musculoskeletal No stiffness 04/23/2013 Musculoskeletal No swelling 04/23/2013 Musculoskeletal No muscle weakness 2012 Musculoskeletal No myalgias 04/23/2013 Dermatologic No rash 04/23/2013 Dermatologic No scar 04/23/2013 Neurologic No dizziness 04/23/2013 Neurologic No headache 04/23/2013 Neurologic No neck pain 04/23/2013 Neurologic No syncope 04/23/2013 Psychiatric No anxiety 04/23/2013 Psychiatric No depression 04/23/2013 Constitutional recent illness 01/31/2013 Constitutional No chills 01/31/2013 Constitutional No fatigue 01/31/2013 Constitutional No fever 01/31/2013 Constitutional No insomnia 01/31/2013 Constitutional No malaise 01/31/2013 Ears/Nose/Throat/Neck No dizziness 2012 Ears/Nose/Throat/Neck No dysphagia 2012 Ears/Nose/Throat/Neck No nasal allergies 01/31/2013 Ears/Nose/Throat/Neck No sore throat 12/2012 Ears/Nose/Throat/Neck No postnasal drip 01/31/2013 Ears/Nose/Throat/Neck No sinus congestion 01/31/2013 Respiratory No chest tightness 2012 Respiratory No cigarette smoking 2012 Respiratory No cough 01/31/2013 Respiratory No dyspnea 01/31/2013 Respiratory No pedal edema 01/31/2013 Respiratory No snoring 01/31/2013 Respiratory No wheezing 01/31/2013 Cardiovascular No chest pain/pressure 12/2012 Cardiovascular No dyspnea 01/31/2013 Cardiovascular No edema 01/31/2013 Cardiovascular No exercise intolerance Cardiovascular No fatigue 01/31/2013 Cardiovascular No near-syncope/dizziness 01/31/2013 Psychiatric No anxiety 01/31/2013 Psychiatric No depression 01/31/2013 Musculoskeletal No stiffness 01/31/2013 Musculoskeletal No swelling 01/31/2013 Musculoskeletal No muscle weakness 2012 Musculoskeletal No myalgias 01/31/2013 Constitutional No recent illness 2011 Constitutional No chills 10/10/2012 Constitutional No fatigue 10/10/2012 Constitutional No fever 10/10/2012 Constitutional No insomnia 10/10/2012 Constitutional No malaise 10/10/2012 Ears/Nose/Throat/Neck No dental pain 08/2012 Ears/Nose/Throat/Neck No dizziness 2011 Ears/Nose/Throat/Neck No dysphagia 2011 Ears/Nose/Throat/Neck No headache 2011 Ears/Nose/Throat/Neck No hearing loss 08/2012 Ears/Nose/Throat/Neck No nasal allergies 10/10/2012 Ears/Nose/Throat/Neck No sore throat 08/2012 Ears/Nose/Throat/Neck No postnasal drip 10/10/2012 Ears/Nose/Throat/Neck No sinus congestion 10/10/2012 Eyes No blindness 10/10/2012 Eyes No vision change 10/10/2012 Respiratory No chest tightness 2011 Respiratory No cigarette smoking 2011 Respiratory No cough 10/10/2012 Respiratory No dyspnea 10/10/2012 Respiratory No pedal edema 10/10/2012 Respiratory No snoring 10/10/2012 Respiratory No wheezing 10/10/2012 Gastrointestinal No hemorrhoids 2011 Gastrointestinal No abdominal pain 2011 Gastrointestinal No constipation 2011 Gastrointestinal No diarrhea 10/10/2012 Gastrointestinal No gastroesophageal reflux 10/10/2012 Gastrointestinal No melena 10/10/2012 Gastrointestinal No nausea 10/10/2012 Gastrointestinal No vomiting 10/10/2012 Genitourinary/Nephrology No dysuria 10/10 Genitourinary/Nephrology No nocturia 08/2012 Genitourinary/Nephrology No urinary incontinence 10/10/2012 Psychiatric No anxiety 10/10/2012 Psychiatric No depression 10/10/2012 Musculoskeletal No stiffness 10/10/2012 Musculoskeletal No swelling 10/10/2012 Musculoskeletal No muscle weakness 2011 Musculoskeletal No myalgias 10/10/2012 Neurologic No dizziness 10/10/2012 Neurologic No headache 10/10/2012 Neurologic No neck pain 10/10/2012 Neurologic No syncope 10/10/2012 Dermatologic No rash 10/10/2012 Dermatologic No scar 10/10/2012 Physical Exam Exam Name System Name Item Name Status Result Effective Dates Notes Full Exam - General 1995 Constitutional general appearance Overall: well developed 12/13/2017 None Full Exam - General 1994 Constitutional general appearance Overall: in no acute distress 12/13/2017 None Full Exam - General 1994 Constitutional general appearance Overall: well nourished 12/13/2017 None Full Exam - General 1994 Eyes pupils and irises Overall: pupils equal, round, reactive to light and accomodation 12/13/2017 None Full Exam - General 1994 Ears/Nose/Throat otoscopic exam Overall: external auditory canals clear 12/13/2017 None Full Exam - General 1994 Ears/Nose/Throat otoscopic exam Overall: tympanic membranes clear 12/13/2017 None Full Exam - General 1994 Ears/Nose/Throat oral cavity/pharynx/larynx Overall: oral mucosa clear 12/13/2017 None Full Exam - General 1994 Ears/Nose/Throat oral cavity/pharynx/larynx Overall: oropharyngeal mucosa clear 12/13/2017 None Full Exam - General 1994 Ears/Nose/Throat oral cavity/pharynx/larynx Overall: no masses 12/13/2017 None Full Exam - General 1994 Respiratory auscultation Overall: breath sounds clear bilaterally 12/13/2017 None Full Exam - General 1994 Respiratory respiratory effort/rhythm Overall: no retractions 12/13/2017 None Full Exam - General 1994 Respiratory respiratory effort/rhythm Overall: normal rate 12/13/2017 None Full Exam - General 1994 Cardiovascular extremities Overall: no clubbing 12/13/2017 None Full Exam - General 1994 Cardiovascular auscultation of heart Overall: normal heart sounds 12/13/2017 None Full Exam - General 1994 Abdomen abdominal exam Overall: no tenderness 12/13/2017 None Full Exam - General 1994 Abdomen abdominal exam Overall: normal bowel sounds 12/13/2017 None Full Exam - General 1994 Musculoskeletal head and neck Overall: head atraumatic 12/13/2017 None Full Exam - General 1994 Musculoskeletal head and neck Overall: cervical spine benign 12/13/2017 None Full Exam - General 1994 Psychiatric orientation/consciousness Overall: oriented to person, place and time 12/13/2017 None Full Exam - General 1994 Psychiatric mood and affect Overall: normal mood and affect 12/13/2017 None Full Exam - General 1994 Psychiatric mood and affect Mood: happy 12/13/2017 None Full Exam - General 1994 Constitutional general appearance Overall: well developed 08/08/2017 None Full Exam - General 1994 Constitutional general appearance Overall: in no acute distress 08/08/2017 None Full Exam - General 1994 Constitutional general appearance Overall: well nourished 08/08/2017 None Full Exam - General 1994 Eyes pupils and irises Overall: pupils equal, round, reactive to light and accomodation 08/08/2017 None Full Exam - General 1994 Ears/Nose/Throat otoscopic exam Overall: external auditory canals clear 08/08/2017 None Full Exam - General 1994 Ears/Nose/Throat otoscopic exam Overall: tympanic membranes clear 08/08/2017 None Full Exam - General 1994 Ears/Nose/Throat oral cavity/pharynx/larynx Overall: oral mucosa clear 08/08/2017 None Full Exam - General 1994 Ears/Nose/Throat oral cavity/pharynx/larynx Overall: oropharyngeal mucosa clear 08/08/2017 None Full Exam - General 1994 Ears/Nose/Throat oral cavity/pharynx/larynx Overall: no masses 08/08/2017 None Full Exam - General 1994 Respiratory auscultation Overall: breath sounds clear bilaterally 08/08/2017 None Full Exam - General 1994 Respiratory respiratory effort/rhythm Overall: no retractions 08/08/2017 None Full Exam - General 1994 Respiratory respiratory effort/rhythm Overall: normal rate 08/08/2017 None Full Exam - General 1994 Cardiovascular extremities Overall: no clubbing 08/08/2017 None Full Exam - General 1994 Cardiovascular auscultation of heart Overall: normal heart sounds 08/08/2017 None Full Exam - General 1994 Abdomen abdominal exam Overall: no tenderness 08/08/2017 None Full Exam - General 1994 Abdomen abdominal exam Overall: normal bowel sounds 08/08/2017 None Full Exam - General 1994 Musculoskeletal head and neck Overall: head atraumatic 08/08/2017 None Full Exam - General 1994 Musculoskeletal head and neck Overall: cervical spine benign 08/08/2017 None Full Exam - General 1994 Psychiatric orientation/consciousness Overall: oriented to person, place and time 08/08/2017 None Full Exam - General 1994 Psychiatric mood and affect Overall: normal mood and affect 08/08/2017 None Full Exam - General 1994 Psychiatric mood and affect Mood: happy 08/08/2017 None Full Exam - General 1994 Constitutional general appearance Overall: well developed 04/11/2017 None Full Exam - General 1994 Constitutional general appearance Overall: in no acute distress 04/11/2017 None Full Exam - General 1994 Constitutional general appearance Overall: well nourished 04/11/2017 None Full Exam - General 1994 Eyes pupils and irises Overall: pupils equal, round, reactive to light and accomodation 04/11/2017 None Full Exam - General 1994 Ears/Nose/Throat otoscopic exam Overall: external auditory canals clear 04/11/2017 None Full Exam - General 1994 Ears/Nose/Throat otoscopic exam Overall: tympanic membranes clear 04/11/2017 None Full Exam - General 1994 Ears/Nose/Throat oral cavity/pharynx/larynx Overall: oral mucosa clear 04/11/2017 None Full Exam - General 1994 Ears/Nose/Throat oral cavity/pharynx/larynx Overall: oropharyngeal mucosa clear 04/11/2017 None Full Exam - General 1994 Ears/Nose/Throat oral cavity/pharynx/larynx Overall: no masses 04/11/2017 None Full Exam - General 1994 Respiratory auscultation Overall: breath sounds clear bilaterally 04/11/2017 None Full Exam - General 1994 Respiratory respiratory effort/rhythm Overall: no retractions 04/11/2017 None Full Exam - General 1994 Respiratory respiratory effort/rhythm Overall: normal rate 04/11/2017 None Full Exam - General 1994 Cardiovascular extremities Overall: no clubbing 04/11/2017 None Full Exam - General 1994 Cardiovascular auscultation of heart Overall: normal heart sounds 04/11/2017 None Full Exam - General 1994 Musculoskeletal head and neck Overall: head atraumatic 04/11/2017 None Full Exam - General 1994 Musculoskeletal head and neck Overall: cervical spine benign 04/11/2017 None Full Exam - General 1994 Psychiatric orientation/consciousness Overall: oriented to person, place and time 04/11/2017 None Full Exam - General 1994 Psychiatric mood and affect Overall: normal mood and affect 04/11/2017 None Full Exam - General 1994 Psychiatric mood and affect Mood: happy 04/11/2017 None Full Exam - General 1994 Abdomen abdominal exam Overall: no tenderness 04/11/2017 None Full Exam - General 1994 Abdomen abdominal exam Overall: normal bowel sounds 04/11/2017 None Full Exam - General 1994 Constitutional general appearance Overall: well developed 01/24/2017 None Full Exam - General 1994 Constitutional general appearance Overall: in no acute distress 01/24/2017 None Full Exam - General 1994 Constitutional general appearance Overall: well nourished 01/24/2017 None Full Exam - General 1994 Eyes conjunctiva /eyelids Overall: conjunctiva clear 01/24/2017 None Full Exam - General 1994 Eyes conjunctiva /eyelids Overall: eyelids normal 01/24/2017 None Full Exam - General 1994 Ears/Nose/Throat lips/teeth/gingiva Overall: benign lips 01/24/2017 None Full Exam - General 1994 Ears/Nose/Throat oral cavity/pharynx/larynx Overall: oral mucosa clear 01/24/2017 None Full Exam - General 1994 Respiratory auscultation Overall: breath sounds clear bilaterally 01/24/2017 None Full Exam - General 1994 Respiratory respiratory effort/rhythm Overall: no retractions 01/24/2017 None Full Exam - General 1994 Respiratory respiratory effort/rhythm Overall: normal rate 01/24/2017 None Full Exam - General 1994 Cardiovascular auscultation of heart Overall: regular rate 01/24/2017 None Full Exam - General 1994 Cardiovascular auscultation of heart Overall: normal heart sounds 01/24/2017 None Full Exam - General 1994 Neurologic cranial nerves Overall: crainial nerves 2 - 12 grossly intact 01/24/2017 None Full Exam - General 1994 Psychiatric orientation/consciousness Overall: oriented to person, place and time 01/24/2017 None Full Exam - General 1994 Psychiatric mood and affect Overall: normal mood and affect 01/24/2017 None Full Exam - General 1994 Psychiatric appearance Overall: well-groomed, good eye contact 01/24/2017 None Full Exam - Orthopedics Constitutional general appearance Overall: well nourished 12/24/2016 None Full Exam - Orthopedics Constitutional general appearance Overall: well developed 12/24/2016 None Full Exam - Orthopedics Constitutional general appearance Overall: in no acute distress 12/24/2016 None Full Exam - Orthopedics Eyes conjunctiva/ eyelids Overall: conjunctiva clear 12/24/2016 None Full Exam - Orthopedics Eyes conjunctiva/ eyelids Overall: cornea clear 12/24/2016 None Full Exam - Orthopedics Eyes conjunctiva/ eyelids Overall: eyelids normal 12/24/2016 None Full Exam - Orthopedics Eyes pupils and irises Overall: pupils equal, round, reactive to light and accomodation 12/24/2016 None Full Exam - Orthopedics Ears/Nose/Throat otoscopic exam Overall: external auditory canals clear 12/24/2016 None Full Exam - Orthopedics Ears/Nose/Throat otoscopic exam Overall: tympanic membranes clear 12/24/2016 None Full Exam - Orthopedics Ears/Nose/Throat lips/teeth/gingiva Overall: benign lips 12/24/2016 None Full Exam - Orthopedics Ears/Nose/Throat lips/teeth/gingiva Overall: normal dentition 12/24/2016 None Full Exam - Orthopedics Ears/Nose/Throat oral cavity/pharynx/larynx Overall: oral mucosa clear 12/24/2016 None Full Exam - Orthopedics Neck thyroid Overall: normal size 12/24 None Full Exam - Orthopedics Neck thyroid Overall: normal consistency 12/24/2016 None Full Exam - Orthopedics Neck thyroid Overall: nontender 2016 None Full Exam - Orthopedics Neck inspection of neck Overall: normal size 12/24/2016 None Full Exam - Orthopedics Neck inspection of neck Overall: normal appearance 12/24/2016 None Full Exam - Orthopedics Respiratory auscultation Overall: breath sounds clear bilaterally 12/24/2016 None Full Exam - Orthopedics Respiratory respiratory effort/rhythm Overall: no retractions 12/24/2016 None Full Exam - Orthopedics Respiratory respiratory effort/rhythm Overall: normal rate 12/24/2016 None Full Exam - Orthopedics Abdomen abdominal exam Overall: no tenderness 12/24/2016 None Full Exam - Orthopedics Abdomen abdominal exam Overall: normal bowel sounds 12/24/2016 None Full Exam - Orthopedics Musculoskeletal gait and station Conventional walking: asymmetric 12/24/2016 PARTIAL WEIGHT BEARING ON RIGHT DUE TO PAIN IN RIGHT FOOT Full Exam - Orthopedics MS: right lower extremity insp & palp - RLE Lower leg: redness 12/24/2016 HEMOSIDERIN STAINING Full Exam - Orthopedics MS: left lower extremity insp & palp - LLE Lower leg: redness 12/24/2016 hemosiderin pigment changes bilateral lower legs Full Exam - Orthopedics MS: right lower extremity insp & palp - RLE Foot: redness 12/24/2016 None Full Exam - Orthopedics MS: right lower extremity insp & palp - RLE Foot: swelling 12/24/2016 ttp mid foot Full Exam - General 1994 Constitutional general appearance Overall: well nourished 11/23/2016 None Full Exam - General 1994 Constitutional general appearance Overall: well developed 11/23/2016 None Full Exam - General 1994 Constitutional general appearance Overall: in no acute distress 11/23/2016 None Full Exam - General 1994 Psychiatric orientation/consciousness Overall: oriented to person, place and time 11/23/2016 None Full Exam - General 1994 Psychiatric mood and affect Mood: happy 11/23/2016 None Full Exam - General 1994 Psychiatric mood and affect Overall: normal mood and affect 11/23/2016 None Full Exam - General 1994 Constitutional general appearance Overall: well developed 10/11/2016 None Full Exam - General 1994 Constitutional general appearance Overall: in no acute distress 10/11/2016 None Full Exam - General 1994 Constitutional general appearance Overall: well nourished 10/11/2016 None Full Exam - General 1994 Eyes pupils and irises Overall: pupils equal, round, reactive to light and accomodation 10/11/2016 None Full Exam - General 1994 Ears/Nose/Throat otoscopic exam Overall: external auditory canals clear 10/11/2016 None Full Exam - General 1994 Ears/Nose/Throat otoscopic exam Overall: tympanic membranes clear 10/11/2016 None Full Exam - General 1994 Ears/Nose/Throat oral cavity/pharynx/larynx Overall: oral mucosa clear 10/11/2016 None Full Exam - General 1994 Ears/Nose/Throat oral cavity/pharynx/larynx Overall: oropharyngeal mucosa clear 10/11/2016 None Full Exam - General 1994 Ears/Nose/Throat oral cavity/pharynx/larynx Overall: no masses 10/11/2016 None Full Exam - General 1994 Respiratory auscultation Overall: breath sounds clear bilaterally 10/11/2016 None Full Exam - General 1994 Respiratory respiratory effort/rhythm Overall: no retractions 10/11/2016 None Full Exam - General 1994 Respiratory respiratory effort/rhythm Overall: normal rate 10/11/2016 None Full Exam - General 1994 Cardiovascular extremities Overall: no clubbing 10/11/2016 None Full Exam - General 1994 Cardiovascular auscultation of heart Overall: normal heart sounds 10/11/2016 None Full Exam - General 1994 Musculoskeletal head and neck Overall: head atraumatic 10/11/2016 None Full Exam - General 1994 Musculoskeletal head and neck Overall: cervical spine benign 10/11/2016 None Full Exam - General 1994 Psychiatric orientation/consciousness Overall: oriented to person, place and time 10/11/2016 None Full Exam - General 1994 Psychiatric mood and affect Overall: normal mood and affect 10/11/2016 None Full Exam - General 1994 Psychiatric mood and affect Mood: happy 10/11/2016 None Full Exam - General 1994 Abdomen abdominal exam Overall: no tenderness 10/11/2016 None Full Exam - General 1994 Abdomen abdominal exam Overall: normal bowel sounds 10/11/2016 None Full Exam - General 1994 Constitutional general appearance Overall: well nourished 06/28/2016 None Full Exam - General 1994 Constitutional general appearance Overall: well developed 06/28/2016 None Full Exam - General 1994 Constitutional general appearance Overall: in no acute distress 06/28/2016 None Full Exam - General 1994 Psychiatric orientation/consciousness Overall: oriented to person, place and time 06/28/2016 None Full Exam - General 1994 Psychiatric mood and affect Mood: happy 06/28/2016 None Full Exam - General 1994 Psychiatric mood and affect Overall: normal mood and affect 06/28/2016 None Full Exam - General 1994 Constitutional general appearance Overall: well developed 06/08/2016 None Full Exam - General 1994 Constitutional general appearance Overall: in no acute distress 06/08/2016 None Full Exam - General 1994 Constitutional general appearance Overall: well nourished 06/08/2016 None Full Exam - General 1994 Eyes pupils and irises Overall: pupils equal, round, reactive to light and accomodation 06/08/2016 None Full Exam - General 1994 Ears/Nose/Throat otoscopic exam Overall: external auditory canals clear 06/08/2016 None Full Exam - General 1994 Ears/Nose/Throat otoscopic exam Overall: tympanic membranes clear 06/08/2016 None Full Exam - General 1994 Ears/Nose/Throat oral cavity/pharynx/larynx Overall: oral mucosa clear 06/08/2016 None Full Exam - General 1994 Ears/Nose/Throat oral cavity/pharynx/larynx Overall: oropharyngeal mucosa clear 06/08/2016 None Full Exam - General 1994 Ears/Nose/Throat oral cavity/pharynx/larynx Overall: no masses 06/08/2016 None Full Exam - General 1994 Respiratory auscultation Overall: breath sounds clear bilaterally 06/08/2016 None Full Exam - General 1994 Respiratory respiratory effort/rhythm Overall: no retractions 06/08/2016 None Full Exam - General 1994 Respiratory respiratory effort/rhythm Overall: normal rate 06/08/2016 None Full Exam - General 1994 Cardiovascular extremities Overall: no clubbing 06/08/2016 None Full Exam - General 1994 Cardiovascular auscultation of heart Overall: normal heart sounds 06/08/2016 None Full Exam - General 1994 Musculoskeletal head and neck Overall: head atraumatic 06/08/2016 None Full Exam - General 1994 Musculoskeletal head and neck Overall: cervical spine benign 06/08/2016 None Full Exam - General 1994 Psychiatric orientation/consciousness Overall: oriented to person, place and time 06/08/2016 None Full Exam - General 1994 Psychiatric mood and affect Overall: normal mood and affect 06/08/2016 None Full Exam - General 1994 Psychiatric mood and affect Mood: happy 06/08/2016 None Full Exam - General 1994 Constitutional general appearance Overall: well developed 04/14/2016 None Full Exam - General 1994 Constitutional general appearance Overall: in no acute distress 04/14/2016 None Full Exam - General 1994 Constitutional general appearance Overall: well nourished 04/14/2016 None Full Exam - General 1994 Respiratory respiratory effort/rhythm Overall: no retractions 04/14/2016 None Full Exam - General 1994 Respiratory respiratory effort/rhythm Overall: normal rate 04/14/2016 None Full Exam - General 1994 Musculoskeletal head and neck Overall: head atraumatic 04/14/2016 None Full Exam - General 1994 Neurologic cranial nerves Overall: crainial nerves 2 - 12 grossly intact 04/14/2016 None Full Exam - General 1994 Psychiatric orientation/consciousness Overall: oriented to person, place and time 04/14/2016 None Full Exam - General 1994 Psychiatric mood and affect Overall: normal mood and affect 04/14/2016 None Full Exam - General 1994 Psychiatric mood and affect Mood: happy 04/14/2016 None Full Exam - General 1994 Eyes conjunctiva /eyelids Overall: conjunctiva clear 04/14/2016 None Full Exam - General 1994 Eyes conjunctiva /eyelids Overall: cornea clear 04/14/2016 None Full Exam - General 1994 Eyes conjunctiva /eyelids Overall: eyelids normal 04/14/2016 None Full Exam - General 1994 Ears/Nose/Throat lips/teeth/gingiva Overall: benign lips 04/14/2016 None Full Exam - General 1994 Ears/Nose/Throat lips/teeth/gingiva Overall: normal dentition 04/14/2016 None Full Exam - General 1994 Integument inspection of skin Location: chest 04/14/2016 None Full Exam - General 1994 Integument inspection of skin Pigmentation: erythematous 04/14/2016 small dime sized areas with some induration noted. Full Exam - General 1994 Constitutional general appearance Overall: well developed 02/10/2016 None Full Exam - General 1994 Constitutional general appearance Overall: in no acute distress 02/10/2016 None Full Exam - General 1994 Constitutional general appearance Overall: well nourished 02/10/2016 None Full Exam - General 1994 Eyes pupils and irises Overall: pupils equal, round, reactive to light and accomodation 02/10/2016 None Full Exam - General 1994 Ears/Nose/Throat otoscopic exam Overall: external auditory canals clear 02/10/2016 None Full Exam - General 1994 Ears/Nose/Throat otoscopic exam Overall: tympanic membranes clear 02/10/2016 None Full Exam - General 1994 Ears/Nose/Throat oral cavity/pharynx/larynx Overall: oral mucosa clear 02/10/2016 None Full Exam - General 1994 Ears/Nose/Throat oral cavity/pharynx/larynx Overall: oropharyngeal mucosa clear 02/10/2016 None Full Exam - General 1994 Ears/Nose/Throat oral cavity/pharynx/larynx Overall: no masses 02/10/2016 None Full Exam - General 1994 Respiratory auscultation Overall: breath sounds clear bilaterally 02/10/2016 None Full Exam - General 1994 Respiratory respiratory effort/rhythm Overall: no retractions 02/10/2016 None Full Exam - General 1994 Respiratory respiratory effort/rhythm Overall: normal rate 02/10/2016 None Full Exam - General 1994 Cardiovascular extremities Overall: no clubbing 02/10/2016 None Full Exam - General 1994 Cardiovascular auscultation of heart Overall: normal heart sounds 02/10/2016 None Full Exam - General 1994 Abdomen abdominal exam Overall: no tenderness 02/10/2016 None Full Exam - General 1994 Abdomen abdominal exam Overall: normal bowel sounds 02/10/2016 None Full Exam - General 1994 Lymphatic neck nodes Overall: anterior cervical chain benign 02/10/2016 None Full Exam - General 1994 Lymphatic neck nodes Overall: posterior cervical chain benign 02/10/2016 None Full Exam - General 1994 Musculoskeletal head and neck Overall: head atraumatic 02/10/2016 None Full Exam - General 1994 Musculoskeletal head and neck Overall: cervical spine benign 02/10/2016 None Full Exam - General 1994 Neurologic deep tendon reflexes Overall: deep tendon reflexes intact 02/10/2016 None Full Exam - General 1994 Neurologic cranial nerves Overall: crainial nerves 2 - 12 grossly intact 02/10/2016 None Full Exam - General 1994 Psychiatric orientation/consciousness Overall: oriented to person, place and time 02/10/2016 None Full Exam - General 1994 Psychiatric mood and affect Overall: normal mood and affect 02/10/2016 None Full Exam - General 1994 Psychiatric mood and affect Mood: happy 02/10/2016 None Full Exam - General 1994 Constitutional general appearance Overall: well developed 11/11/2015 None Full Exam - General 1994 Constitutional general appearance Overall: in no acute distress 11/11/2015 None Full Exam - General 1994 Constitutional general appearance Overall: well nourished 11/11/2015 None Full Exam - General 1994 Eyes pupils and irises Overall: pupils equal, round, reactive to light and accomodation 11/11/2015 None Full Exam - General 1994 Ears/Nose/Throat otoscopic exam Overall: external auditory canals clear 11/11/2015 None Full Exam - General 1994 Ears/Nose/Throat otoscopic exam Overall: tympanic membranes clear 11/11/2015 None Full Exam - General 1994 Ears/Nose/Throat oral cavity/pharynx/larynx Overall: oral mucosa clear 11/11/2015 None Full Exam - General 1994 Ears/Nose/Throat oral cavity/pharynx/larynx Overall: oropharyngeal mucosa clear 11/11/2015 None Full Exam - General 1994 Ears/Nose/Throat oral cavity/pharynx/larynx Overall: no masses 11/11/2015 None Full Exam - General 1994 Respiratory auscultation Overall: breath sounds clear bilaterally 11/11/2015 None Full Exam - General 1994 Respiratory respiratory effort/rhythm Overall: no retractions 11/11/2015 None Full Exam - General 1994 Respiratory respiratory effort/rhythm Overall: normal rate 11/11/2015 None Full Exam - General 1994 Cardiovascular extremities Overall: no clubbing 11/11/2015 None Full Exam - General 1994 Cardiovascular auscultation of heart Overall: normal heart sounds 11/11/2015 None Full Exam - General 1994 Abdomen abdominal exam Overall: no tenderness 11/11/2015 None Full Exam - General 1994 Abdomen abdominal exam Overall: normal bowel sounds 11/11/2015 None Full Exam - General 1994 Lymphatic neck nodes Overall: anterior cervical chain benign 11/11/2015 None Full Exam - General 1994 Lymphatic neck nodes Overall: posterior cervical chain benign 11/11/2015 None Full Exam - General 1994 Musculoskeletal head and neck Overall: head atraumatic 11/11/2015 None Full Exam - General 1994 Musculoskeletal head and neck Overall: cervical spine benign 11/11/2015 None Full Exam - General 1994 Neurologic deep tendon reflexes Overall: deep tendon reflexes intact 11/11/2015 None Full Exam - General 1994 Neurologic cranial nerves Overall: crainial nerves 2 - 12 grossly intact 11/11/2015 None Full Exam - General 1994 Psychiatric orientation/consciousness Overall: oriented to person, place and time 11/11/2015 None Full Exam - General 1994 Psychiatric mood and affect Overall: normal mood and affect 11/11/2015 None Full Exam - General 1994 Psychiatric mood and affect Mood: happy 11/11/2015 None Full Exam - General 1994 Constitutional general appearance Overall: well developed 09/10/2015 None Full Exam - General 1994 Constitutional general appearance Overall: in no acute distress 09/10/2015 None Full Exam - General 1994 Constitutional general appearance Overall: well nourished 09/10/2015 None Full Exam - General 1994 Eyes pupils and irises Overall: pupils equal, round, reactive to light and accomodation 09/10/2015 None Full Exam - General 1994 Ears/Nose/Throat otoscopic exam Overall: external auditory canals clear 09/10/2015 None Full Exam - General 1994 Ears/Nose/Throat otoscopic exam Overall: tympanic membranes clear 09/10/2015 None Full Exam - General 1994 Ears/Nose/Throat oral cavity/pharynx/larynx Overall: oral mucosa clear 09/10/2015 None Full Exam - General 1994 Ears/Nose/Throat oral cavity/pharynx/larynx Overall: oropharyngeal mucosa clear 09/10/2015 None Full Exam - General 1994 Ears/Nose/Throat oral cavity/pharynx/larynx Overall: no masses 09/10/2015 None Full Exam - General 1994 Respiratory auscultation Overall: breath sounds clear bilaterally 09/10/2015 None Full Exam - General 1994 Respiratory respiratory effort/rhythm Overall: no retractions 09/10/2015 None Full Exam - General 1994 Respiratory respiratory effort/rhythm Overall: normal rate 09/10/2015 None Full Exam - General 1994 Cardiovascular extremities Overall: no clubbing 09/10/2015 None Full Exam - General 1994 Cardiovascular auscultation of heart Overall: normal heart sounds 09/10/2015 None Full Exam - General 1994 Abdomen abdominal exam Overall: no tenderness 09/10/2015 None Full Exam - General 1994 Abdomen abdominal exam Overall: normal bowel sounds 09/10/2015 None Full Exam - General 1994 Lymphatic neck nodes Overall: anterior cervical chain benign 09/10/2015 None Full Exam - General 1994 Lymphatic neck nodes Overall: posterior cervical chain benign 09/10/2015 None Full Exam - General 1994 Musculoskeletal head and neck Overall: head atraumatic 09/10/2015 None Full Exam - General 1994 Musculoskeletal head and neck Overall: cervical spine benign 09/10/2015 None Full Exam - General 1994 Neurologic deep tendon reflexes Overall: deep tendon reflexes intact 09/10/2015 None Full Exam - General 1994 Neurologic cranial nerves Overall: crainial nerves 2 - 12 grossly intact 09/10/2015 None Full Exam - General 1994 Psychiatric orientation/consciousness Overall: oriented to person, place and time 09/10/2015 None Full Exam - General 1994 Psychiatric mood and affect Overall: normal mood and affect 09/10/2015 None Full Exam - General 1994 Psychiatric mood and affect Mood: happy 09/10/2015 None Full Exam - General 1994 Constitutional general appearance Overall: well developed 07/08/2015 None Full Exam - General 1994 Constitutional general appearance Overall: in no acute distress 07/08/2015 None Full Exam - General 1994 Constitutional general appearance Overall: well nourished 07/08/2015 None Full Exam - General 1994 Eyes pupils and irises Overall: pupils equal, round, reactive to light and accomodation 07/08/2015 None Full Exam - General 1994 Ears/Nose/Throat otoscopic exam Overall: external auditory canals clear 07/08/2015 None Full Exam - General 1994 Ears/Nose/Throat otoscopic exam Overall: tympanic membranes clear 07/08/2015 None Full Exam - General 1994 Ears/Nose/Throat oral cavity/pharynx/larynx Overall: oral mucosa clear 07/08/2015 None Full Exam - General 1994 Ears/Nose/Throat oral cavity/pharynx/larynx Overall: oropharyngeal mucosa clear 07/08/2015 None Full Exam - General 1994 Ears/Nose/Throat oral cavity/pharynx/larynx Overall: no masses 07/08/2015 None Full Exam - General 1994 Respiratory auscultation Overall: breath sounds clear bilaterally 07/08/2015 None Full Exam - General 1994 Respiratory respiratory effort/rhythm Overall: no retractions 07/08/2015 None Full Exam - General 1994 Respiratory respiratory effort/rhythm Overall: normal rate 07/08/2015 None Full Exam - General 1994 Cardiovascular extremities Overall: no clubbing 07/08/2015 None Full Exam - General 1994 Cardiovascular auscultation of heart Overall: normal heart sounds 07/08/2015 None Full Exam - General 1994 Abdomen abdominal exam Overall: no tenderness 07/08/2015 None Full Exam - General 1994 Abdomen abdominal exam Overall: normal bowel sounds 07/08/2015 None Full Exam - General 1994 Lymphatic neck nodes Overall: anterior cervical chain benign 07/08/2015 None Full Exam - General 1994 Lymphatic neck nodes Overall: posterior cervical chain benign 07/08/2015 None Full Exam - General 1994 Musculoskeletal head and neck Overall: head atraumatic 07/08/2015 None Full Exam - General 1994 Musculoskeletal head and neck Overall: cervical spine benign 07/08/2015 None Full Exam - General 1994 Neurologic deep tendon reflexes Overall: deep tendon reflexes intact 07/08/2015 None Full Exam - General 1994 Neurologic cranial nerves Overall: crainial nerves 2 - 12 grossly intact 07/08/2015 None Full Exam - General 1994 Psychiatric orientation/consciousness Overall: oriented to person, place and time 07/08/2015 None Full Exam - General 1994 Psychiatric mood and affect Overall: normal mood and affect 07/08/2015 None Full Exam - General 1994 Psychiatric mood and affect Mood: happy 07/08/2015 None Full Exam - General 1994 Constitutional general appearance Overall: well developed 01/07/2015 None Full Exam - General 1994 Constitutional general appearance Overall: in no acute distress 01/07/2015 None Full Exam - General 1994 Constitutional general appearance Overall: well nourished 01/07/2015 None Full Exam - General 1994 Eyes pupils and irises Overall: pupils equal, round, reactive to light and accomodation 01/07/2015 None Full Exam - General 1994 Ears/Nose/Throat otoscopic exam Overall: external auditory canals clear 01/07/2015 None Full Exam - General 1994 Ears/Nose/Throat otoscopic exam Overall: tympanic membranes clear 01/07/2015 None Full Exam - General 1994 Ears/Nose/Throat oral cavity/pharynx/larynx Overall: oral mucosa clear 01/07/2015 None Full Exam - General 1994 Ears/Nose/Throat oral cavity/pharynx/larynx Overall: oropharyngeal mucosa clear 01/07/2015 None Full Exam - General 1994 Ears/Nose/Throat oral cavity/pharynx/larynx Overall: no masses 01/07/2015 None Full Exam - General 1994 Respiratory auscultation Overall: breath sounds clear bilaterally 01/07/2015 None Full Exam - General 1994 Respiratory respiratory effort/rhythm Overall: no retractions 01/07/2015 None Full Exam - General 1994 Respiratory respiratory effort/rhythm Overall: normal rate 01/07/2015 None Full Exam - General 1994 Cardiovascular extremities Overall: no clubbing 01/07/2015 None Full Exam - General 1994 Cardiovascular auscultation of heart Overall: normal heart sounds 01/07/2015 None Full Exam - General 1994 Abdomen abdominal exam Overall: no tenderness 01/07/2015 None Full Exam - General 1994 Abdomen abdominal exam Overall: normal bowel sounds 01/07/2015 None Full Exam - General 1994 Lymphatic neck nodes Overall: anterior cervical chain benign 01/07/2015 None Full Exam - General 1994 Lymphatic neck nodes Overall: posterior cervical chain benign 01/07/2015 None Full Exam - General 1994 Musculoskeletal head and neck Overall: head atraumatic 01/07/2015 None Full Exam - General 1994 Musculoskeletal head and neck Overall: cervical spine benign 01/07/2015 None Full Exam - General 1994 Neurologic deep tendon reflexes Overall: deep tendon reflexes intact 01/07/2015 None Full Exam - General 1994 Neurologic cranial nerves Overall: crainial nerves 2 - 12 grossly intact 01/07/2015 None Full Exam - General 1994 Psychiatric orientation/consciousness Overall: oriented to person, place and time 01/07/2015 None Full Exam - General 1994 Psychiatric mood and affect Overall: normal mood and affect 01/07/2015 None Full Exam - General 1994 Psychiatric mood and affect Mood: happy 01/07/2015 None Full Exam - General 1994 Constitutional general appearance Overall: well developed 11/05/2014 None Full Exam - General 1994 Constitutional general appearance Overall: in no acute distress 11/05/2014 None Full Exam - General 1994 Constitutional general appearance Overall: well nourished 11/05/2014 None Full Exam - General 1994 Eyes pupils and irises Overall: pupils equal, round, reactive to light and accomodation 11/05/2014 None Full Exam - General 1994 Ears/Nose/Throat otoscopic exam Overall: external auditory canals clear 11/05/2014 None Full Exam - General 1994 Ears/Nose/Throat otoscopic exam Overall: tympanic membranes clear 11/05/2014 None Full Exam - General 1994 Ears/Nose/Throat oral cavity/pharynx/larynx Overall: oral mucosa clear 11/05/2014 None Full Exam - General 1994 Ears/Nose/Throat oral cavity/pharynx/larynx Overall: oropharyngeal mucosa clear 11/05/2014 None Full Exam - General 1994 Ears/Nose/Throat oral cavity/pharynx/larynx Overall: no masses 11/05/2014 None Full Exam - General 1994 Respiratory auscultation Overall: breath sounds clear bilaterally 11/05/2014 None Full Exam - General 1994 Respiratory respiratory effort/rhythm Overall: no retractions 11/05/2014 None Full Exam - General 1994 Respiratory respiratory effort/rhythm Overall: normal rate 11/05/2014 None Full Exam - General 1994 Cardiovascular extremities Overall: no clubbing 11/05/2014 None Full Exam - General 1994 Cardiovascular auscultation of heart Overall: normal heart sounds 11/05/2014 None Full Exam - General 1994 Abdomen abdominal exam Overall: no tenderness 11/05/2014 None Full Exam - General 1994 Abdomen abdominal exam Overall: normal bowel sounds 11/05/2014 None Full Exam - General 1994 Lymphatic neck nodes Overall: anterior cervical chain benign 11/05/2014 None Full Exam - General 1994 Lymphatic neck nodes Overall: posterior cervical chain benign 11/05/2014 None Full Exam - General 1994 Musculoskeletal head and neck Overall: head atraumatic 11/05/2014 None Full Exam - General 1994 Musculoskeletal head and neck Overall: cervical spine benign 11/05/2014 None Full Exam - General 1994 Neurologic deep tendon reflexes Overall: deep tendon reflexes intact 11/05/2014 None Full Exam - General 1994 Neurologic cranial nerves Overall: crainial nerves 2 - 12 grossly intact 11/05/2014 None Full Exam - General 1994 Psychiatric orientation/consciousness Overall: oriented to person, place and time 11/05/2014 None Full Exam - General 1994 Psychiatric mood and affect Overall: normal mood and affect 11/05/2014 None Full Exam - General 1994 Psychiatric mood and affect Mood: happy 11/05/2014 None Full Exam - General 1994 Constitutional general appearance Overall: well developed 09/16/2014 None Full Exam - General 1994 Constitutional general appearance Overall: in no acute distress 09/16/2014 None Full Exam - General 1994 Constitutional general appearance Overall: well nourished 09/16/2014 None Full Exam - General 1994 Eyes pupils and irises Overall: pupils equal, round, reactive to light and accomodation 09/16/2014 None Full Exam - General 1994 Ears/Nose/Throat otoscopic exam Overall: external auditory canals clear 09/16/2014 None Full Exam - General 1994 Ears/Nose/Throat otoscopic exam Overall: tympanic membranes clear 09/16/2014 None Full Exam - General 1994 Ears/Nose/Throat oral cavity/pharynx/larynx Overall: oral mucosa clear 09/16/2014 None Full Exam - General 1994 Ears/Nose/Throat oral cavity/pharynx/larynx Overall: oropharyngeal mucosa clear 09/16/2014 None Full Exam - General 1994 Ears/Nose/Throat oral cavity/pharynx/larynx Overall: no masses 09/16/2014 None Full Exam - General 1994 Respiratory auscultation Overall: breath sounds clear bilaterally 09/16/2014 None Full Exam - General 1994 Respiratory respiratory effort/rhythm Overall: no retractions 09/16/2014 None Full Exam - General 1994 Respiratory respiratory effort/rhythm Overall: normal rate 09/16/2014 None Full Exam - General 1994 Cardiovascular extremities Overall: no clubbing 09/16/2014 None Full Exam - General 1994 Cardiovascular auscultation of heart Overall: normal heart sounds 09/16/2014 None Full Exam - General 1994 Abdomen abdominal exam Overall: no tenderness 09/16/2014 None Full Exam - General 1994 Abdomen abdominal exam Overall: normal bowel sounds 09/16/2014 None Full Exam - General 1994 Lymphatic neck nodes Overall: anterior cervical chain benign 09/16/2014 None Full Exam - General 1994 Lymphatic neck nodes Overall: posterior cervical chain benign 09/16/2014 None Full Exam - General 1994 Musculoskeletal head and neck Overall: head atraumatic 09/16/2014 None Full Exam - General 1994 Musculoskeletal head and neck Overall: cervical spine benign 09/16/2014 None Full Exam - General 1994 Neurologic deep tendon reflexes Overall: deep tendon reflexes intact 09/16/2014 None Full Exam - General 1994 Neurologic cranial nerves Overall: crainial nerves 2 - 12 grossly intact 09/16/2014 None Full Exam - General 1994 Psychiatric orientation/consciousness Overall: oriented to person, place and time 09/16/2014 None Full Exam - General 1994 Psychiatric mood and affect Overall: normal mood and affect 09/16/2014 None Full Exam - General 1994 Psychiatric mood and affect Mood: happy 09/16/2014 None Full Exam - General 1994 Constitutional general appearance Overall: well developed 08/22/2014 None Full Exam - General 1994 Constitutional general appearance Overall: in no acute distress 08/22/2014 None Full Exam - General 1994 Constitutional general appearance Overall: well nourished 08/22/2014 None Full Exam - General 1994 Eyes pupils and irises Overall: pupils equal, round, reactive to light and accomodation 08/22/2014 None Full Exam - General 1994 Respiratory respiratory effort/rhythm Overall: no retractions 08/22/2014 None Full Exam - General 1994 Respiratory respiratory effort/rhythm Overall: normal rate 08/22/2014 None Full Exam - General 1994 Cardiovascular extremities Overall: no clubbing 08/22/2014 None Full Exam - General 1994 Cardiovascular auscultation of heart Overall: normal heart sounds 08/22/2014 None Full Exam - General 1994 Psychiatric orientation/consciousness Overall: oriented to person, place and time 08/22/2014 None Full Exam - General 1994 Constitutional general appearance Overall: well developed 04/29/2014 None Full Exam - General 1994 Constitutional general appearance Overall: in no acute distress 04/29/2014 None Full Exam - General 1994 Constitutional general appearance Overall: well nourished 04/29/2014 None Full Exam - General 1994 Eyes pupils and irises Overall: pupils equal, round, reactive to light and accomodation 04/29/2014 None Full Exam - General 1994 Ears/Nose/Throat otoscopic exam Overall: external auditory canals clear 04/29/2014 None Full Exam - General 1994 Ears/Nose/Throat otoscopic exam Overall: tympanic membranes clear 04/29/2014 None Full Exam - General 1994 Ears/Nose/Throat oral cavity/pharynx/larynx Overall: oral mucosa clear 04/29/2014 None Full Exam - General 1994 Ears/Nose/Throat oral cavity/pharynx/larynx Overall: oropharyngeal mucosa clear 04/29/2014 None Full Exam - General 1994 Ears/Nose/Throat oral cavity/pharynx/larynx Overall: no masses 04/29/2014 None Full Exam - General 1994 Respiratory auscultation Overall: breath sounds clear bilaterally 04/29/2014 None Full Exam - General 1994 Respiratory respiratory effort/rhythm Overall: no retractions 04/29/2014 None Full Exam - General 1994 Respiratory respiratory effort/rhythm Overall: normal rate 04/29/2014 None Full Exam - General 1994 Cardiovascular extremities Overall: no clubbing 04/29/2014 None Full Exam - General 1994 Cardiovascular auscultation of heart Overall: normal heart sounds 04/29/2014 None Full Exam - General 1994 Abdomen abdominal exam Overall: no tenderness 04/29/2014 None Full Exam - General 1994 Abdomen abdominal exam Overall: normal bowel sounds 04/29/2014 None Full Exam - General 1994 Lymphatic neck nodes Overall: anterior cervical chain benign 04/29/2014 None Full Exam - General 1994 Lymphatic neck nodes Overall: posterior cervical chain benign 04/29/2014 None Full Exam - General 1994 Musculoskeletal head and neck Overall: head atraumatic 04/29/2014 None Full Exam - General 1994 Musculoskeletal head and neck Overall: cervical spine benign 04/29/2014 None Full Exam - General 1994 Neurologic deep tendon reflexes Overall: deep tendon reflexes intact 04/29/2014 None Full Exam - General 1994 Neurologic cranial nerves Overall: crainial nerves 2 - 12 grossly intact 04/29/2014 None Full Exam - General 1994 Psychiatric orientation/consciousness Overall: oriented to person, place and time 04/29/2014 None Full Exam - General 1994 Psychiatric mood and affect Overall: normal mood and affect 04/29/2014 None Full Exam - General 1994 Psychiatric mood and affect Mood: happy 04/29/2014 None Full Exam - General 1994 Constitutional general appearance Overall: well developed 10/22/2013 None Full Exam - General 1994 Constitutional general appearance Overall: in no acute distress 10/22/2013 None Full Exam - General 1994 Constitutional general appearance Overall: well nourished 10/22/2013 None Full Exam - General 1994 Eyes pupils and irises Overall: pupils equal, round, reactive to light and accomodation 10/22/2013 None Full Exam - General 1994 Ears/Nose/Throat otoscopic exam Overall: external auditory canals clear 10/22/2013 None Full Exam - General 1994 Ears/Nose/Throat otoscopic exam Overall: tympanic membranes clear 10/22/2013 None Full Exam - General 1994 Ears/Nose/Throat oral cavity/pharynx/larynx Overall: oral mucosa clear 10/22/2013 None Full Exam - General 1995 Ears/Nose/Throat oral cavity/pharynx/larynx Overall: oropharyngeal mucosa clear 10/22/2013 None Full Exam - General 1994 Ears/Nose/Throat oral cavity/pharynx/larynx Overall: no masses 10/22/2013 None Full Exam - General 1994 Respiratory auscultation Overall: breath sounds clear bilaterally 10/22/2013 None Full Exam - General 1994 Respiratory respiratory effort/rhythm Overall: no retractions 10/22/2013 None Full Exam - General 1994 Respiratory respiratory effort/rhythm Overall: normal rate 10/22/2013 None Full Exam - General 1994 Cardiovascular extremities Overall: no clubbing 10/22/2013 None Full Exam - General 1994 Cardiovascular auscultation of heart Overall: normal heart sounds 10/22/2013 None Full Exam - General 1994 Abdomen abdominal exam Overall: no tenderness 10/22/2013 None Full Exam - General 1994 Abdomen abdominal exam Overall: normal bowel sounds 10/22/2013 None Full Exam - General 1994 Lymphatic neck nodes Overall: anterior cervical chain benign 10/22/2013 None Full Exam - General 1994 Lymphatic neck nodes Overall: posterior cervical chain benign 10/22/2013 None Full Exam - General 1994 Musculoskeletal head and neck Overall: head atraumatic 10/22/2013 None Full Exam - General 1994 Musculoskeletal head and neck Overall: cervical spine benign 10/22/2013 None Full Exam - General 1995 Neurologic deep tendon reflexes Overall: deep tendon reflexes intact 10/22/2013 None Full Exam - General 1994 Neurologic cranial nerves Overall: crainial nerves 2 - 12 grossly intact 10/22/2013 None Full Exam - General 1994 Psychiatric orientation/consciousness Overall: oriented to person, place and time 10/22/2013 None Full Exam - General 1994 Psychiatric mood and affect Overall: normal mood and affect 10/22/2013 None Full Exam - General 1994 Psychiatric mood and affect Mood: happy 10/22/2013 None Full Exam - General 1994 Constitutional general appearance Overall: well developed 04/23/2013 None Full Exam - General 1994 Constitutional general appearance Overall: in no acute distress 04/23/2013 None Full Exam - General 1994 Constitutional general appearance Overall: well nourished 04/23/2013 None Full Exam - General 1994 Eyes pupils and irises Overall: pupils equal, round, reactive to light and accomodation 04/23/2013 None Full Exam - General 1994 Ears/Nose/Throat otoscopic exam Overall: external auditory canals clear 04/23/2013 None Full Exam - General 1994 Ears/Nose/Throat otoscopic exam Overall: tympanic membranes clear 04/23/2013 None Full Exam - General 1994 Ears/Nose/Throat oral cavity/pharynx/larynx Overall: oral mucosa clear 04/23/2013 None Full Exam - General 1994 Ears/Nose/Throat oral cavity/pharynx/larynx Overall: oropharyngeal mucosa clear 04/23/2013 None Full Exam - General 1995 Ears/Nose/Throat oral cavity/pharynx/larynx Overall: no masses 04/23/2013 None Full Exam - General 1994 Neck thyroid Overall: normal size None Full Exam - General 1994 Neck thyroid Overall: normal consistency 04/23/2013 None Full Exam - General 1994 Neck thyroid Overall: nontender 2012 None Full Exam - General 1994 Neck thyroid Overall: no mass lesions 04/23/2013 None Full Exam - General 1994 Respiratory auscultation Overall: breath sounds clear bilaterally 04/23/2013 None Full Exam - General 1994 Respiratory respiratory effort/rhythm Overall: no retractions 04/23/2013 None Full Exam - General 1994 Respiratory respiratory effort/rhythm Overall: normal rate 04/23/2013 None Full Exam - General 1994 Cardiovascular extremities Overall: no clubbing 04/23/2013 None Full Exam - General 1994 Cardiovascular auscultation of heart Overall: normal heart sounds 04/23/2013 None Full Exam - General 1994 Abdomen abdominal exam Overall: no tenderness 04/23/2013 None Full Exam - General 1994 Abdomen abdominal exam Overall: normal bowel sounds 04/23/2013 None Full Exam - General 1994 Lymphatic neck nodes Overall: anterior cervical chain benign 04/23/2013 None Full Exam - General 1994 Lymphatic neck nodes Overall: posterior cervical chain benign 04/23/2013 None Full Exam - General 1994 Musculoskeletal head and neck Overall: head atraumatic 04/23/2013 None Full Exam - General 1994 Musculoskeletal head and neck Overall: cervical spine benign 04/23/2013 None Full Exam - General 1994 Neurologic deep tendon reflexes Overall: deep tendon reflexes intact 04/23/2013 None Full Exam - General 1994 Neurologic cranial nerves Overall: crainial nerves 2 - 12 grossly intact 04/23/2013 None Full Exam - General 1994 Psychiatric orientation/consciousness Overall: oriented to person, place and time 04/23/2013 None Full Exam - General 1994 Psychiatric mood and affect Overall: normal mood and affect 04/23/2013 None Full Exam - General 1994 Psychiatric mood and affect Mood: happy 04/23/2013 None Full Exam - General 1994 Constitutional general appearance Overall: well nourished 01/31/2013 None Full Exam - General 1994 Constitutional general appearance Overall: well developed 01/31/2013 None Full Exam - General 1994 Constitutional general appearance Overall: in no acute distress 01/31/2013 None Full Exam - General 1994 Eyes pupils and irises Overall: pupils equal, round, reactive to light and accomodation 01/31/2013 None Full Exam - General 1994 Ears/Nose/Throat oral cavity/pharynx/larynx Overall: oropharyngeal mucosa clear 01/31/2013 None Full Exam - General 1994 Ears/Nose/Throat oral cavity/pharynx/larynx Overall: no masses 01/31/2013 None Full Exam - General 1995 Ears/Nose/Throat oral cavity/pharynx/larynx Overall: oral mucosa clear 01/31/2013 None Full Exam - General 1994 Ears/Nose/Throat otoscopic exam Overall: tympanic membranes clear 01/31/2013 None Full Exam - General 1995 Ears/Nose/Throat otoscopic exam Overall: external auditory canals clear 01/31/2013 None Full Exam - General 1994 Respiratory respiratory effort/rhythm Overall: normal rate 01/31/2013 None Full Exam - General 1994 Respiratory respiratory effort/rhythm Overall: no retractions 01/31/2013 None Full Exam - General 1994 Respiratory auscultation Overall: breath sounds clear bilaterally 01/31/2013 None Full Exam - General 1994 Cardiovascular extremities Overall: no clubbing 01/31/2013 None Full Exam - General 1994 Cardiovascular auscultation of heart Overall: normal heart sounds 01/31/2013 None Full Exam - General 1994 Psychiatric orientation/consciousness Overall: oriented to person, place and time 01/31/2013 None Full Exam - General 1994 Psychiatric mood and affect Overall: normal mood and affect 01/31/2013 None Full Exam - General 1994 Psychiatric mood and affect Mood: happy 01/31/2013 None Full Exam - General 1994 Abdomen abdominal exam Bowel sounds: a normal exam 01/31/2013 None Full Exam - General 1994 Abdomen abdominal exam Upper quadrant: tender to palpation 01/31/2013 None Full Exam - General 1994 Abdomen abdominal exam Lower quadrant: non-tender to palpation 01/31/2013 None Full Exam - General 1994 Abdomen abdominal exam Epigastric: tender to palpation 01/31/2013 None Full Exam - General 1994 Constitutional general appearance Overall: well nourished 10/10/2012 None Full Exam - General 1994 Constitutional general appearance Overall: well developed 10/10/2012 None Full Exam - General 1994 Constitutional general appearance Overall: in no acute distress 10/10/2012 None Full Exam - General 1994 Eyes pupils and irises Overall: pupils equal, round, reactive to light and accomodation 10/10/2012 None Full Exam - General 1994 Ears/Nose/Throat oral cavity/pharynx/larynx Overall: oropharyngeal mucosa clear 10/10/2012 None Full Exam - General 1994 Ears/Nose/Throat oral cavity/pharynx/larynx Overall: no masses 10/10/2012 None Full Exam - General 1994 Ears/Nose/Throat oral cavity/pharynx/larynx Overall: oral mucosa clear 10/10/2012 None Full Exam - General 1994 Ears/Nose/Throat otoscopic exam Overall: tympanic membranes clear 10/10/2012 None Full Exam - General 1994 Ears/Nose/Throat otoscopic exam Overall: external auditory canals clear 10/10/2012 None Full Exam - General 1994 Neck thyroid Overall: nontender 2011 None Full Exam - General 1994 Neck thyroid Overall: normal size 08/2012 None Full Exam - General 1994 Neck thyroid Overall: no mass lesions 10/10/2012 None Full Exam - General 1994 Neck thyroid Overall: normal consistency 10/10/2012 None Full Exam - General 1994 Respiratory auscultation Overall: breath sounds clear bilaterally 10/10/2012 None Full Exam - General 1994 Respiratory respiratory effort/rhythm Overall: normal rate 10/10/2012 None Full Exam - General 1994 Respiratory respiratory effort/rhythm Overall: no retractions 10/10/2012 None Full Exam - General 1994 Cardiovascular extremities Overall: no clubbing 10/10/2012 None Full Exam - General 1994 Cardiovascular auscultation of heart Overall: normal heart sounds 10/10/2012 None Full Exam - General 1994 Abdomen abdominal exam Overall: no tenderness 10/10/2012 None Full Exam - General 1994 Abdomen abdominal exam Overall: normal bowel sounds 10/10/2012 None Full Exam - General 1994 Lymphatic neck nodes Overall: anterior cervical chain benign 10/10/2012 None Full Exam - General 1994 Lymphatic neck nodes Overall: posterior cervical chain benign 10/10/2012 None Full Exam - General 1994 Psychiatric orientation/consciousness Overall: oriented to person, place and time 10/10/2012 None Full Exam - General 1994 Psychiatric mood and affect Mood: happy 10/10/2012 None Full Exam - General 1994 Psychiatric mood and affect Overall: normal mood and affect 10/10/2012 None Full Exam - General 1994 Neurologic deep tendon reflexes Overall: deep tendon reflexes intact 10/10/2012 None Full Exam - General 1994 Neurologic cranial nerves Overall: crainial nerves 2 - 12 grossly intact 10/10/2012 None Full Exam - General 1994 Musculoskeletal head and neck Overall: cervical spine benign 10/10/2012 None Full Exam - General 1994 Musculoskeletal head and neck Overall: head atraumatic 10/10/2012 None Procedures Procedure Codes Date PPPS, SUBSEQ VISIT CPT -4: G0439 01/24/2017 URINALYSIS NONAUTO W/O SCOPE CPT-4: 13251 08/22/2014 ROCEPHIN, PER 250 MG CPT-4: J0696 08/22/2014 OFFICE VISIT, NEW - LEVEL 4 CPT-4: 14936 10/22/2013 PRESCRIP TRANSMIT VIA ERX SY CPT-4: G8553 10/10/2012 Vital Signs Date Vital 12/13/2017 Blood Pressure 1: 134/72 Code : 8480-6 BMI: 27.4 Code : 54934-4 Heart Rate 1 : 67 bpm Height: 5'6" SpO2: 98% Weight: 170 lbs 08/08/2017 Blood Pressure 1: 132/78 Code : 8480-6 BMI: 26.8 Code : 73074-9 Heart Rate 1 : 87 bpm Height: 5'6" SpO2: 99% Weight: 166 lbs 04/11/2017 Blood Pressure 1: 138/78 Code : 8480-6 BMI: 27.0 Code : 27992-7 Heart Rate 1 : 75 bpm Height: 5'6" SpO2: 97% Weight: 167 lbs 01/24/2017 Blood Pressure 1: 140/80 Code : 8480-6 BMI: 27.3 Code : 22746-8 Heart Rate 1 : 80 bpm Height: 5'6" SpO2: 98% Weight: 169 lbs 12/24/2016 Blood Pressure 1: 138/70 Code : 8480-6 BMI: 27.3 Code : 77743-2 Heart Rate 1 : 87 bpm Height: 5'6" SpO2: 98% Weight: 169 lbs 11/23/2016 Blood Pressure 1: 142/68 Code : 8480-6 BMI: 27.0 Code : 22874-7 Heart Rate 1 : 89 bpm Height: 5'6" SpO2: 98% Weight: 167 lbs 10/11/2016 Blood Pressure 1: 130/78 Code : 8480-6 BMI: 27.0 Code : 45310-9 Heart Rate 1 : 70 bpm Height: 5'6" SpO2: 98% Weight: 167 lbs 06/28/2016 Blood Pressure 1: 124/72 Code : 8480-6 BMI: 27.8 Code : 94765-3 Heart Rate 1 : 74 bpm Height: 5'6" SpO2: 96% Weight: 172 lbs 06/08/2016 Blood Pressure 1: 122/72 Code : 8480-6 BMI: 27.1 Code : 75949-7 Heart Rate 1 : 65 bpm Height: 5'6" SpO2: 97% Weight: 168 lbs 04/14/2016 Blood Pressure 1: 152/72 Code : 8480-6 BMI: 27.4 Code : 77699-9 Heart Rate 1 : 85 bpm Height: 5'6" SpO2: 98% Weight: 170 lbs 02/10/2016 Blood Pressure 1: 126/60 Code : 8480-6 BMI: 26.6 Code : 87418-9 Heart Rate 1 : 71 bpm Height: 5'6" SpO2: 97% Weight: 165 lbs 11/11/2015 Blood Pressure 1: 138/70 Code : 8480-6 BMI: 27.6 Code : 71814-8 Heart Rate 1 : 76 bpm Height: 5'6" SpO2: 98% Weight: 171 lbs 09/10/2015 Blood Pressure 1: 120/72 Code : 8480-6 BMI: 27.0 Code : 64887-2 Heart Rate 1 : 80 bpm Height: 5'6" SpO2: 98% Weight: 167 lbs 07/08/2015 Blood Pressure 1: 126/70 Code : 8480-6 BMI: 26.8 Code : 24464-3 Heart Rate 1 : 71 bpm Height: 5'6" SpO2: 95% Weight: 166 lbs 01/07/2015 Blood Pressure 1: 114/72 Code : 8480-6 BMI: 25.3 Code : 04560-4 Heart Rate 1 : 68 bpm Height: 5'6" Weight: 157 lbs 11/05/2014 Blood Pressure 1: 140/72 Code : 8480-6 BMI: 25.2 Code : 39756-8 Heart Rate 1 : 72 bpm Height: 5'6" Weight: 156 lbs 09/16/2014 Blood Pressure 1: 122/68 Code : 8480-6 BMI: 24.9 Code : 53087-1 Heart Rate 1 : 68 bpm Height: 5'6" Weight: 154 lbs 08/22/2014 Blood Pressure 1: 118/76 Code : 8480-6 BMI: 24.9 Code : 83959-6 Heart Rate 1 : 74 bpm Height: 5'6" Weight: 154 lbs 04/29/2014 Blood Pressure 1: 96/60 Code : 8480-6 BMI: 23.6 Code : 44019-4 Heart Rate 1 : 64 bpm Height: 5'6" Weight: 146 lbs 10/22/2013 Blood Pressure 1: 124/66 Code : 8480-6 BMI: 22.3 Code : 32331-8 Heart Rate 1 : 60 bpm Height: 5'6" Weight: 138 lbs 06/05/2013 Blood Pressure 1: 136/68 Code : 8480-6 Heart Rate 1: 68 bpm 04/23/2013 Blood Pressure 1: 128/76 Code : 8480-6 BMI: 23.7 Code : 24365-3 Heart Rate 1 : 80 bpm Height: 5'6" Weight: 147 lbs 01/31/2013 Blood Pressure 1: 140/86 Code : 8480-6 BMI: 25.0 Code : 33022-0 Heart Rate 1 : 68 bpm Height: 5'6" Weight: 155 lbs 10/10/2012 Blood Pressure 1: 130/80 Code : 8480-6 BMI: 26.5 Code : 43423-7 Heart Rate 1 : 72 bpm Height: 5'6" Respiratory Rate: 16 bpm Weight: 164 lbs Functional Status No Functional Status data History of Present Illness Symptom Name Status Result Effective Date Notes hypothyroid Onset and Resolution ongoing 12/13/2017 None hypothyroid Alleviating Factors medication 12/13/2017 None arrhythmia Quality chronic 12/13/2017 None arrhythmia Quality intermittent 12/13/2017 None arrhythmia Quality tachycardia 12/13/2017 None arrhythmia Onset and Resolution ongoing 12/13/2017 None arrhythmia Onset of Symptom during adulthood 12/13/2017 None arrhythmia Limitation on Activities does not limit activities 12/13/2017 None arrhythmia Length of Episodes a few seconds 12/13/2017 to a couple of minutes arrhythmia Timing of Episodes in the evening 12/13/2017 mostly arrhythmia Triggers no known associated factors 12/13/2017 None arrhythmia Triggers stress 12/13/2017 or overly tired arrhythmia Alleviating Factors rest 12/13/2017 None arrhythmia Alleviating Factors medication 12/13/2017 None hyperlipidemia Onset and Resolution gradual in onset 12/13/2017 None hyperlipidemia Onset of Symptom during adulthood 12/13/2017 None hyperlipidemia Significant Medications statin 12/13/2017 None hyperlipidemia Alleviating Factors medication 12/13/2017 None hyperlipidemia Exacerbating Factors diet 12/13/2017 None hypothyroid Quality chronic 12/13/2017 None hypothyroid Onset and Resolution ongoing 08/08/2017 None hypothyroid Alleviating Factors medication 08/08/2017 None arrhythmia Quality chronic 08/08/2017 None arrhythmia Quality intermittent 08/08/2017 None arrhythmia Onset and Resolution ongoing 08/08/2017 None arrhythmia Onset of Symptom during adulthood 08/08/2017 None arrhythmia Limitation on Activities does not limit activities 08/08/2017 None arrhythmia Triggers no known associated factors 08/08/2017 None arrhythmia Triggers stress 08/08/2017 or overly tired arrhythmia Alleviating Factors rest 08/08/2017 None arrhythmia Alleviating Factors medication 08/08/2017 None hyperlipidemia Onset and Resolution gradual in onset 08/08/2017 None hyperlipidemia Onset of Symptom during adulthood 08/08/2017 None hyperlipidemia Alleviating Factors medication 08/08/2017 None hyperlipidemia Exacerbating Factors diet 08/08/2017 None hyperlipidemia Significant Medications statin 08/08/2017 None arrhythmia Length of Episodes a few seconds 08/08/2017 to a couple of minutes arrhythmia Quality tachycardia 08/08/2017 None arrhythmia Timing of Episodes in the evening 08/08/2017 mostly hypothyroid Onset and Resolution ongoing 04/11/2017 None hypothyroid Alleviating Factors medication 04/11/2017 None arrhythmia Quality chronic 04/11/2017 None arrhythmia Quality intermittent 04/11/2017 None arrhythmia Onset and Resolution ongoing 04/11/2017 None arrhythmia Onset of Symptom during adulthood 04/11/2017 None arrhythmia Limitation on Activities does not limit activities 04/11/2017 None arrhythmia Triggers no known associated factors 04/11/2017 None arrhythmia Triggers stress 04/11/2017 None arrhythmia Alleviating Factors rest 04/11/2017 None arrhythmia Alleviating Factors medication 04/11/2017 None hyperlipidemia Onset and Resolution gradual in onset 04/11/2017 None hyperlipidemia Onset of Symptom during adulthood 04/11/2017 None hyperlipidemia Alleviating Factors medication 04/11/2017 None hyperlipidemia Exacerbating Factors diet 04/11/2017 None Annual Medicare Wellness Exam Alcohol Use does not drink any alcohol 01/24/2017 None Annual Medicare Wellness Exam Aspirin Use no 01/24/2017 None Annual Medicare Wellness Exam Blood Glucose (self reported) don't know 01/24/2017 None Annual Medicare Wellness Exam Blood Pressure (self reported ) borderline (120/80 - 139/89) 01/24/2017 None Annual Medicare Wellness Exam Cholesterol (self reported) don't know 01/24/2017 None Annual Medicare Wellness Exam Depression (last 6 months) almost never 01/24/2017 None Annual Medicare Wellness Exam Depression or Hopelessness almost never 01/24/2017 None Annual Medicare Wellness Exam Describe Your Health very good 01/24/2017 None Annual Medicare Wellness Exam Exercise Habits exercises restarting days per week 01/24/2017 None Annual Medicare Wellness Exam Handling Stress usually elizabeth effectively 01/24/2017 None Annual Medicare Wellness Exam Hemaglobin A-1C (self reported ) don't know 01/24/2017 None Annual Medicare Wellness Exam Hours of Sleep 8 01/24/2017 None Annual Medicare Wellness Exam Interaction with Friends yes 01/24/2017 None Annual Medicare Wellness Exam Interests & Pleasure most of the time 01/24/2017 None Annual Medicare Wellness Exam Life Satisfaction satisfied 01/24/2017 None Annual Medicare Wellness Exam Motor Vehicle Safety always fastens seat belt: y 01/24/2017 None Annual Medicare Wellness Exam Nutrition servings of vegetables / fruit per day: 3 01/24/2017 None Annual Medicare Wellness Exam Smoking and Tobacco Use non smoker 01/24/2017 None Annual Medicare Wellness Exam Social & Emotional Support usually 01/24/2017 None Annual Medicare Wellness Exam Stress some of the time 01/24/2017 None Annual Medicare Wellness Exam Sun Exposure protects skin when outdoors: y 01/24/2017 None foot pain Location on the right 12/24/2016 None foot pain Location in the forefoot region 12/24/2016 None foot pain Quality tenderness 12/24/2016 None foot pain Quality constant 12/24/2016 None foot pain Timing of Episodes in the evening 12/24/2016 swelling foot pain Onset and Resolution sudden in onset 12/24/2016 None foot pain Onset of Symptom 2 weeks ago 12/24/2016 None foot pain Initial treatment elevation 12/24/2016 None foot pain Pertinent Findings Denies decreased range of motion 12/24/2016 None foot pain Pertinent Findings limping 12/24/2016 None foot pain Pertinent Findings pain with movement 12/24/2016 None foot pain Pertinent Findings redness 12/24/2016 None foot pain Pertinent Findings swelling 12/24/2016 None foot pain Pertinent Findings tingling 12/24/2016 None foot pain Pertinent Findings warmth 12/24/2016 None foot pain Mechanism of injury unknown 12/24/2016 None arrhythmia Quality chronic 10/11/2016 None arrhythmia Quality intermittent 10/11/2016 None arrhythmia Onset and Resolution ongoing 10/11/2016 None arrhythmia Onset of Symptom during adulthood 10/11/2016 None arrhythmia Limitation on Activities does not limit activities 10/11/2016 None arrhythmia Triggers no known associated factors 10/11/2016 None arrhythmia Triggers stress 10/11/2016 None arrhythmia Alleviating Factors rest 10/11/2016 None arrhythmia Alleviating Factors medication 10/11/2016 None hypothyroid Onset and Resolution ongoing 10/11/2016 None hypothyroid Alleviating Factors medication 10/11/2016 None hyperlipidemia Onset and Resolution gradual in onset 10/11/2016 None hyperlipidemia Onset and Resolution ongoing 10/11/2016 None hyperlipidemia Onset of Symptom during adulthood 10/11/2016 None hyperlipidemia Alleviating Factors medication 10/11/2016 None hyperlipidemia Exacerbating Factors diet 10/11/2016 None abnormal test results Detailed Test Result(s) osteopenia and osteoporosis 06/28/2016 None abnormal test results Abnormal Indicator abnormal 06/28/2016 None abnormal test results Type of Test(s) bone density scan 06/28/2016 None arrhythmia Quality chronic 06/08/2016 None arrhythmia Quality intermittent 06/08/2016 None arrhythmia Onset and Resolution ongoing 06/08/2016 None arrhythmia Onset of Symptom during adulthood 06/08/2016 None arrhythmia Limitation on Activities does not limit activities 06/08/2016 None arrhythmia Triggers no known associated factors 06/08/2016 None arrhythmia Triggers stress 06/08/2016 None arrhythmia Alleviating Factors rest 06/08/2016 None arrhythmia Alleviating Factors medication 06/08/2016 None arrhythmia Pertinent Findings Denies anxiety 06/08/2016 None arrhythmia Pertinent Findings Denies dizziness 06/08/2016 None arrhythmia Pertinent Findings Denies dyspnea 06/08/2016 None arrhythmia Pertinent Findings Denies fever 06/08/2016 None arrhythmia Pertinent Findings Denies lethargy 06/08/2016 None arrhythmia Pertinent Findings Denies lightheadedness 06/08/2016 None arrhythmia Pertinent Findings Denies palpitations 06/08/2016 None arrhythmia Pertinent Findings Denies syncope 06/08/2016 None hypothyroid Onset and Resolution ongoing 06/08/2016 None hypothyroid Alleviating Factors medication 06/08/2016 None hyperlipidemia Onset and Resolution ongoing 06/08/2016 None hyperlipidemia Onset of Symptom during adulthood 06/08/2016 None hyperlipidemia Alleviating Factors medication 06/08/2016 None hyperlipidemia Exacerbating Factors diet 06/08/2016 None hyperlipidemia Onset and Resolution gradual in onset 06/08/2016 None arthropod bite Location on the chest 04/14/2016 None arthropod bite Quality constant 04/14/2016 None arthropod bite Quality swollen 04/14/2016 None arthropod bite Quality worsening 04/14/2016 None arthropod bite Onset of Symptom 1 days ago 04/14/2016 None arthropod bite Triggers no known associated factors 04/14/2016 None arrhythmia Quality acute 02/10/2016 None arrhythmia Quality chronic 02/10/2016 None arrhythmia Quality intermittent 02/10/2016 None arrhythmia Onset and Resolution ongoing 02/10/2016 None arrhythmia Onset of Symptom during adulthood 02/10/2016 None arrhythmia Limitation on Activities does not limit activities 02/10/2016 None arrhythmia Triggers no known associated factors 02/10/2016 None arrhythmia Triggers stress 02/10/2016 None arrhythmia Alleviating Factors rest 02/10/2016 None arrhythmia Alleviating Factors medication 02/10/2016 None arrhythmia Pertinent Findings Denies anxiety 02/10/2016 None arrhythmia Pertinent Findings Denies dizziness 02/10/2016 None arrhythmia Pertinent Findings Denies dyspnea 02/10/2016 None arrhythmia Pertinent Findings Denies fever 02/10/2016 None arrhythmia Pertinent Findings Denies lethargy 02/10/2016 None arrhythmia Pertinent Findings Denies lightheadedness 02/10/2016 None arrhythmia Pertinent Findings Denies palpitations 02/10/2016 None arrhythmia Pertinent Findings Denies syncope 02/10/2016 None hypothyroid Onset and Resolution ongoing 02/10/2016 None hypothyroid Alleviating Factors medication 02/10/2016 None hyperlipidemia Onset and Resolution ongoing 02/10/2016 None hyperlipidemia Onset of Symptom during adulthood 02/10/2016 None hyperlipidemia Alleviating Factors medication 02/10/2016 None hyperlipidemia Exacerbating Factors diet 02/10/2016 None rash Quality constant 02/10/2016 None rash Quality stable None vaginal bleeding Quality acute 02/10/2016 None vaginal bleeding Onset and Resolution resolved 02/10/2016 None rash Onset and Resolution ongoing 02/10/2016 None arrhythmia Quality acute 11/11/2015 None arrhythmia Quality chronic 11/11/2015 None arrhythmia Onset and Resolution ongoing 11/11/2015 None arrhythmia Onset of Symptom during adulthood 11/11/2015 None arrhythmia Limitation on Activities does not limit activities 11/11/2015 None arrhythmia Triggers no known associated factors 11/11/2015 None arrhythmia Triggers stress 11/11/2015 None arrhythmia Alleviating Factors rest 11/11/2015 None arrhythmia Alleviating Factors medication 11/11/2015 None arrhythmia Pertinent Findings Denies anxiety 11/11/2015 None arrhythmia Pertinent Findings Denies dizziness 11/11/2015 None arrhythmia Pertinent Findings Denies dyspnea 11/11/2015 None arrhythmia Pertinent Findings Denies fever 11/11/2015 None arrhythmia Pertinent Findings Denies lethargy 11/11/2015 None arrhythmia Pertinent Findings Denies lightheadedness 11/11/2015 None arrhythmia Pertinent Findings Denies palpitations 11/11/2015 None arrhythmia Pertinent Findings Denies syncope 11/11/2015 None arrhythmia Quality intermittent 11/11/2015 None hypothyroid Onset and Resolution ongoing 11/11/2015 None hypothyroid Alleviating Factors medication 11/11/2015 None hyperlipidemia Onset and Resolution ongoing 11/11/2015 None hyperlipidemia Onset of Symptom during adulthood 11/11/2015 None hyperlipidemia Alleviating Factors medication 11/11/2015 None hyperlipidemia Exacerbating Factors diet 11/11/2015 None rash Location-Major on the lower body 11/11/2015 None rash Location-Extremities on both legs 11/11/2015 None rash Quality stable None rash Quality constant 11/11/2015 None rash Color red 2015 None vaginal bleeding Quality acute 11/11/2015 None vaginal bleeding Onset and Resolution resolved 11/11/2015 None Hospital Follow Up _ cardiac disease 09/10/2015 None arrhythmia Quality acute 09/10/2015 None arrhythmia Quality chronic 09/10/2015 None arrhythmia Onset and Resolution sudden in onset 09/10/2015 resolved after 12 hours arrhythmia Onset and Resolution ongoing 09/10/2015 None arrhythmia Onset of Symptom during adulthood 09/10/2015 None arrhythmia Limitation on Activities does not limit activities 09/10/2015 None arrhythmia Frequency of Episodes yearly 09/10/2015 2 episodes in August arrhythmia Triggers caffeine 09/10/2015 None arrhythmia Triggers no known associated factors 09/10/2015 None arrhythmia Triggers stress 09/10/2015 None arrhythmia Alleviating Factors rest 09/10/2015 None arrhythmia Alleviating Factors medication 09/10/2015 None arrhythmia Pertinent Findings Denies anxiety 09/10/2015 None arrhythmia Pertinent Findings Denies dizziness 09/10/2015 None arrhythmia Pertinent Findings Denies dyspnea 09/10/2015 None arrhythmia Pertinent Findings Denies fever 09/10/2015 None arrhythmia Pertinent Findings Denies lethargy 09/10/2015 None arrhythmia Pertinent Findings Denies lightheadedness 09/10/2015 None arrhythmia Pertinent Findings Denies palpitations 09/10/2015 None arrhythmia Pertinent Findings Denies syncope 09/10/2015 None arrhythmia Quality acute 07/08/2015 None arrhythmia Quality chronic 07/08/2015 None arrhythmia Onset and Resolution sudden in onset 07/08/2015 resolved after 12 hours arrhythmia Onset and Resolution ongoing 07/08/2015 None arrhythmia Onset of Symptom during adulthood 07/08/2015 None arrhythmia Limitation on Activities does not limit activities 07/08/2015 None arrhythmia Frequency of Episodes yearly 07/08/2015 2 episodes in August arrhythmia Triggers caffeine 07/08/2015 None arrhythmia Triggers no known associated factors 07/08/2015 None arrhythmia Triggers stress 07/08/2015 None arrhythmia Alleviating Factors rest 07/08/2015 None arrhythmia Alleviating Factors medication 07/08/2015 None arrhythmia Pertinent Findings Denies anxiety 07/08/2015 None arrhythmia Pertinent Findings Denies dizziness 07/08/2015 None arrhythmia Pertinent Findings Denies dyspnea 07/08/2015 None arrhythmia Pertinent Findings Denies fever 07/08/2015 None arrhythmia Pertinent Findings Denies lethargy 07/08/2015 None arrhythmia Pertinent Findings Denies lightheadedness 07/08/2015 None arrhythmia Pertinent Findings Denies palpitations 07/08/2015 None arrhythmia Pertinent Findings Denies syncope 07/08/2015 None arrhythmia Quality acute 01/07/2015 None arrhythmia Quality chronic 01/07/2015 None arrhythmia Onset and Resolution sudden in onset 01/07/2015 resolved after 12 hours arrhythmia Onset and Resolution ongoing 01/07/2015 None arrhythmia Onset of Symptom during adulthood 01/07/2015 None arrhythmia Limitation on Activities does not limit activities 01/07/2015 None arrhythmia Frequency of Episodes yearly 01/07/2015 2 episodes in August arrhythmia Triggers caffeine 01/07/2015 None arrhythmia Triggers no known associated factors 01/07/2015 None arrhythmia Triggers stress 01/07/2015 None arrhythmia Alleviating Factors rest 01/07/2015 None arrhythmia Alleviating Factors medication 01/07/2015 None arrhythmia Pertinent Findings Denies anxiety 01/07/2015 None arrhythmia Pertinent Findings Denies dizziness 01/07/2015 None arrhythmia Pertinent Findings Denies dyspnea 01/07/2015 None arrhythmia Pertinent Findings Denies fever 01/07/2015 None arrhythmia Pertinent Findings Denies lethargy 01/07/2015 None arrhythmia Pertinent Findings Denies lightheadedness 01/07/2015 None arrhythmia Pertinent Findings Denies palpitations 01/07/2015 None arrhythmia Pertinent Findings Denies syncope 01/07/2015 None arrhythmia Quality acute 11/05/2014 None arrhythmia Onset and Resolution sudden in onset 11/05/2014 resolved after 12 hours arrhythmia Limitation on Activities does not limit activities 11/05/2014 None arrhythmia Frequency of Episodes yearly 11/05/2014 2 episodes in August arrhythmia Triggers no known associated factors 11/05/2014 None arrhythmia Pertinent Findings Denies dyspnea 11/05/2014 None arrhythmia Pertinent Findings Denies fever 11/05/2014 None arrhythmia Pertinent Findings Denies lightheadedness 11/05/2014 None arrhythmia Pertinent Findings Denies palpitations 11/05/2014 None arrhythmia Quality chronic 11/05/2014 None arrhythmia Onset and Resolution ongoing 11/05/2014 None arrhythmia Onset of Symptom during adulthood 11/05/2014 None arrhythmia Triggers caffeine 11/05/2014 None arrhythmia Triggers stress 11/05/2014 None arrhythmia Alleviating Factors rest 11/05/2014 None arrhythmia Alleviating Factors medication 11/05/2014 None arrhythmia Pertinent Findings Denies anxiety 11/05/2014 None arrhythmia Pertinent Findings Denies dizziness 11/05/2014 None arrhythmia Pertinent Findings Denies lethargy 11/05/2014 None arrhythmia Pertinent Findings Denies syncope 11/05/2014 None arrhythmia Onset and Resolution sudden in onset 09/16/2014 resolved after 12 hours arrhythmia Onset of Symptom 4 days ago 09/16/2014 None arrhythmia Frequency of Episodes yearly 09/16/2014 last episode was 2 years ago arrhythmia Pertinent Findings Denies palpitations 09/16/2014 None arrhythmia Pertinent Findings Denies lightheadedness 09/16/2014 None arrhythmia Pertinent Findings Denies fever 09/16/2014 None arrhythmia Pertinent Findings Denies dyspnea 09/16/2014 None arrhythmia Quality acute 09/16/2014 None arrhythmia Triggers no known associated factors 09/16/2014 None arrhythmia Limitation on Activities does not limit activities 09/16/2014 None dysuria Quality burning 08/22/2014 None dysuria Quality aching 08/22/2014 None dysuria Onset of Symptom 2-3 days ago 08/22/2014 None dysuria Pertinent Findings Denies back pain 08/22/2014 None dysuria Pertinent Findings Denies bladder pain 08/22/2014 None dysuria Pertinent Findings Denies pelvic pain 08/22/2014 None dysuria Pertinent Findings urinary urgency 08/22/2014 None urinary frequency Onset of Symptom 2 days ago 08/22/2014 None urinary frequency Pertinent Findings Denies back pain 08/22/2014 None urinary frequency Pertinent Findings Denies bladder pain 08/22/2014 None urinary frequency Pertinent Findings urinary urgency 08/22/2014 None hypothyroid Location at the level of the thyroid 04/29/2014 None hypothyroid Quality chronic 04/29/2014 None hypothyroid Onset and Resolution ongoing 04/29/2014 None hypothyroid Severity mild with subclinical signs 04/29/2014 None hypothyroid Triggers no known associated factors 04/29/2014 None hypothyroid Alleviating Factors medication 04/29/2014 None hypothyroid Pertinent Findings Denies cold skin 04/29/2014 None hypothyroid Pertinent Findings Denies dry skin 04/29/2014 None hypothyroid Pertinent Findings Denies decreased energy 04/29/2014 None arrhythmia Quality chronic 10/22/2013 None arrhythmia Onset and Resolution ongoing 10/22/2013 None arrhythmia Onset of Symptom during adulthood 10/22/2013 None arrhythmia Limitation on Activities does not limit activities 10/22/2013 None arrhythmia Triggers caffeine 10/22/2013 None arrhythmia Triggers stress 10/22/2013 None arrhythmia Alleviating Factors rest 10/22/2013 None arrhythmia Alleviating Factors medication 10/22/2013 None arrhythmia Pertinent Findings Denies anxiety 10/22/2013 None arrhythmia Pertinent Findings Denies dizziness 10/22/2013 None arrhythmia Pertinent Findings Denies lethargy 10/22/2013 None arrhythmia Pertinent Findings Denies syncope 10/22/2013 None diarrhea Quality intermittent 04/23/2013 None diarrhea Onset of Symptom 2-4 days ago 04/23/2013 None diarrhea Significant Medical Conditions surgery 04/23/2013 None diarrhea Pertinent Findings fecal urgency 04/23/2013 None diarrhea Pertinent Findings Denies abdominal distension 04/23/2013 None diarrhea Pertinent Findings cramping 04/23/2013 None diarrhea Pertinent Findings Denies dyspepsia 04/23/2013 None diarrhea Quality intermittent 01/31/2013 None diarrhea Quality watery 01/31/2013 None diarrhea Quality loose 01/31/2013 None diarrhea Quality acute 01/31/2013 patient has been on low fat diet since first of the year. over spring break went on vacation, had chili for lunch and had diarrhea for 24 hours after. several days later she had a hamburger and occitan fries and had diarrhea again. last week she had an omelet and had diarrhea for about 4 hours. seems to only have diarrhea with greasy foods. we gave her align last week. had dark colored urine 2 weeks ago but that has seemed to go away. states no pain after eating other than occasional heart burn. diarrhea Onset and Resolution ongoing 01/31/2013 None diarrhea Onset of Symptom 1 months ago 01/31/2013 None diarrhea Pertinent Findings Denies chills 01/31/2013 None diarrhea Pertinent Findings Denies cough 01/31/2013 None diarrhea Pertinent Findings cramping 01/31/2013 None diarrhea Pertinent Findings Denies edema 01/31/2013 None diarrhea Pertinent Findings flatulence 01/31/2013 None diarrhea Pertinent Findings Denies lethargy 01/31/2013 None diarrhea Pertinent Findings Denies nausea 01/31/2013 None diarrhea Triggers meals 01/31/2013 higher fat meals arrhythmia Quality chronic 10/10/2012 None arrhythmia Onset and Resolution ongoing 10/10/2012 None arrhythmia Onset of Symptom during adulthood 10/10/2012 None arrhythmia Limitation on Activities does not limit activities 10/10/2012 None arrhythmia Triggers caffeine 10/10/2012 None arrhythmia Triggers stress 10/10/2012 None arrhythmia Alleviating Factors medication 10/10/2012 None arrhythmia Alleviating Factors rest 10/10/2012 None arrhythmia Pertinent Findings Denies anxiety 10/10/2012 None arrhythmia Pertinent Findings Denies dizziness 10/10/2012 None arrhythmia Pertinent Findings Denies lethargy 10/10/2012 None arrhythmia Pertinent Findings Denies syncope 10/10/2012 None Advance Directives No Advance Directive data Encounters Encounter Performer Location Codes Date ([id number]) 00214 EST. PATIENT, LEVEL IV Diagnosis: Atrophy of thyroid (acquired)[ICD10: E03.4] Diagnosis: Other specified cardiac arrhythmias[ICD10: I49.8] Diagnosis: Mixed hyperlipidemia[ICD10: E78.2] Juju Maurer MD, [facility] CPT-4: 90763 12/13/2017 ([id number]) 66127 EST. PATIENT, LEVEL IV Diagnosis: Atrophy of thyroid (acquired)[ICD10: E03.4] Diagnosis: Mixed hyperlipidemia[ICD10: E78.2] Juju Maurer MD, [facility] CPT-4: 63407 08/08/2017 ([id number]) 25127 EST. PATIENT, LEVEL IV Diagnosis: Atrophy of thyroid (acquired)[ICD10: E03.4] Diagnosis: Mixed hyperlipidemia[ICD10: E78.2] Juju Maurer MD, [facility] CPT-4: 36137 04/11/2017 ([id number]) 52175 EST. PATIENT, LEVEL III Diagnosis: Pain in right foot[ICD10: M79.671] [facility] CPT-[facility]: 88369 12/24/2016 ([id number]) 51900 EST. PATIENT, LEVEL III Diagnosis: Age-related osteoporosis without current pathological fracture[ICD10 : M81.0] [facility] CPT-4: 62817 2016 ([id number]) 03486 EST. PATIENT, LEVEL IV Diagnosis: Other specified cardiac arrhythmias[ICD10: I49.8] Diagnosis: Atrophy of thyroid (acquired)[ICD10: E03.4] Juju Maurer MD, [facility] CPT-4: 21017 10/11/2016 ([id number]) 86871 EST. PATIENT, LEVEL III Diagnosis: Age-related osteoporosis without current pathological fracture[ICD10 : M81.0] Juju Maurer MD [facility] CPT-4: 39576 2015 ([id number]) 62218 EST. PATIENT, LEVEL III Diagnosis: Hypothyroidism, unspecified[ICD10: E03.9] Juju Maurer MD [facility] CPT-4: 70914 06/08/2016 04285 EST. PATIENT, LEVEL IV Diagnosis: Cutaneous abscess of chest wall[ICD10: L02.213] Lucille Maurer MD [facility] CPT-4: 56124 04/14/2016 ([id number]) 40691 EST. PATIENT, LEVEL III Diagnosis: Gastro-esophageal reflux disease without esophagitis[ICD10: K21.9] Juju Maurer MD [facility] CPT-4: 44909 02/10/2016 ([id number]) 82714 EST. PATIENT, LEVEL IV Diagnosis: Hypothyroidism, unspecified[ICD10: E03.9] Diagnosis: Unspecified atrial fibrillation[ICD10: I48.91] Juju Maurer MD [facility] CPT-4: 61755 11/11/2015 ([id number]) 10030 EST. PATIENT, LEVEL IV Diagnosis: Unspecified atrial fibrillation[ICD10: I48.91] Diagnosis: Other fatigue[ICD10: R53.83] Juju Maurer MD [facility] CPT- 4: 87282 09/10/2015 ([id number]) 91836 EST. PATIENT, LEVEL IV Diagnosis: ATRIAL FIBRILLATION[ICD9: 427.31] Diagnosis: HYPOTHYROIDISM[ICD9: 244.9] Diagnosis: Hyperlipidemia[ICD9: 272.4] Juju Maurer MD [facility] CPT- 4: 68659 07/08/2015 ([id number]) 86209 EST. PATIENT, LEVEL IV Diagnosis: HYPOTHYROIDISM[ICD9: 244.9] Diagnosis: ATRIAL FIBRILLATION[ICD9: 427.31] Diagnosis: Hyperlipidemia[ICD9: 272.4] Juju Maurer MD [facility] CPT- 4: 30367 01/07/2015 ([id number]) 84856 EST. PATIENT, LEVEL IV Diagnosis: Atrial fibrillation[ICD9: 427.31] Diagnosis: HYPOTHYROIDISM[ICD9: 244.9] Juju Maurer MD [facility] CPT- 4: 47642 11/05/2014 ([id number]) 43625 EST. PATIENT, LEVEL IV Diagnosis: Atrial fibrillation[ICD9: 427.31] Diagnosis: Elevated blood sugar[ICD9: 790.29] Diagnosis: HYPOTHYROIDISM[ICD9: 244.9] Iris Maurer MD, [facility] CPT-4: 83954 09/16/2014 ([id number]) 62298 EST. PATIENT, LEVEL III Diagnosis: UTI[ICD9: 599.0] Iris Maurer MD [facility] CPT-4: 89519 08/22/2014 ([id number]) 51481 EST. PATIENT, LEVEL IV Diagnosis: HYPOTHYROIDISM[ICD9: 244.9] Diagnosis: HYPERLIPIDEMIA[ICD9: 272.4] Juju Maurer MD, [facility] CPT- 4: 42038 04/29/2014 ([id number]) Miscellaneous no charge Diagnosis: Benign mole[ICD9: 216.9] Juju Maurer MD, [facility] CPT-4: 36184 06/12/2013 ([id number]) 59100 EST. PATIENT, LEVEL IV Diagnosis: HYPOTHYROIDISM[ICD9: 244.9] Diagnosis: DIARRHEA[ICD9: 787.91] Diagnosis: Osteoarthritis[ICD9: 715.90] Diagnosis: Sacroiliitis[ICD9: 720.2] Juju Maurer MD [facility] CPT-4: 63082 04/23/2013 ([id number]) 31314 EST. PATIENT, LEVEL III Diagnosis: Diarrhea[ICD9: 787.91] Diagnosis: Abdominal pain[ICD9: 789.00] Juju Maurer MD, [facility] CPT- 4: 29875 01/31/2013 ([id number]) OFFICE VISIT, NEW - LEVEL 4 Diagnosis: Atrial fibrillation[ICD9: 427.31] Diagnosis: Hyperlipidemia[ICD9: 272.4] Diagnosis: Hypothyroid[ICD9: 244.9] Juju Maurer MD, [facility] CPT-4: 39279 10/10/2012 Plan of Care Planned Activity Notes Codes Status Date Visit Plan: Hypothyroidism - pt with chronic hypothyroidism , continue with current medication, will monitor pt to signs or symptoms of lack of adequate supplementation. Pt is to continue with current dose of medication unless directed otherwise. Check labs at regular intervals wither q 3 months or q 6 months based on previous levels of control. Hyperlipidemia - pt has been counseled about appropriate diet, exercise, and need for low fat food choices. I have discussed the need for the patient to take medications as prescribed. If the patient has negative side effects from the medication, they are to CALL the office and not abruptly discontinue the medication without discussion with a practitioner in the office. We will check labs in 3-6 months for follow up on the patient's chronic medical problem and to assure normal liver response to medications. Atrial tachycardia - pt to continue with Cartia - and aspirin. 12/13/2017 Patient Education: Patient Medication Summary Completed 12/13/2017 [facility] [phone] [facility] [place] (15 min) Moderate 12/05/2017 Visit Plan: Hypothyroidism - pt with chronic hypothyroidism , continue with current medication, will monitor pt to signs or symptoms of lack of adequate supplementation. Pt is to continue with current dose of medication unless directed otherwise. Check labs at regular intervals wither q 3 months or q 6 months based on previous levels of control. Hyperlipidemia - pt has been counseled about appropriate diet, exercise, and need for low fat food choices. I have discussed the need for the patient to take medications as prescribed. If the patient has negative side effects from the medication, they are to CALL the office and not abruptly discontinue the medication without discussion with a practitioner in the office. We will check labs in 3-6 months for follow up on the patient's chronic medical problem and to assure normal liver response to medications. referral to dr. scales for well woman - referral for 08/08/2017 Appointment: [facility]el[facility] [phone] [facility] [place] (15 min) Moderate 08/08/2017 Patient Education: Patient Medication Summary Completed 08/08/2017 Care Plan: Referral Order SNOMED-CT : [id number] Pending 08/08/2017 Visit Plan: Hypothyroidism - pt with chronic hypothyroidism , continue with current medication, will monitor pt to signs or symptoms of lack of adequate supplementation. Pt is to continue with current dose of medication unless directed otherwise. Check labs at regular intervals wither q 3 months or q 6 months based on previous levels of control. Atrial tachycardia - defer treatment to Dr. Martinez and Dr. Ocasio. Hyperlipidemia - pt has been counseled about appropriate diet, exercise, and need for low fat food choices. I have discussed the need for the patient to take medications as prescribed. If the patient has negative side effects from the medication, they are to CALL the office and not abruptly discontinue the medication without discussion with a practitioner in the office. We will check labs in 3-6 months for follow up on the patient's chronic medical problem and to assure normal liver response to medications. 04/11/2017 Appointment: Juju Maurer WPtel: [phone] [facility] (15 min) Moderate 04/11/2017 Patient Education: Patient Medication Summary Completed 04/11/2017 Visit Plan: Medicare Exam - today we discussed the patients past history, immunizations, preventative exams/evaluations - colonoscopy, fecal occult blood testing, routine labs for renal function, glucose, cholesterol, osteoporosis evaluations, cardiovascular testing and cancer screenings. We have also discussed mental health and the signs/symptoms of depression. The patient was advised of home safety evaluations and the need to make sure that as the aging process continues, we need to be aware of different ways to make the home a safer place to reside. The patient has also been counseled that exercise is necessary - and of utmost importance as we age to help decrease fall risk and to maintain independence in the home. Today we discussed the need for the patient to create paperwork for Advanced directives as well as for the patient to provide this office with a copy of her DOP[employer] paperwork for health care surrogate. 01/24/2017 Appointment: [facility] [phone] [facility] [facility] - Annual Wellness Visit 01/24/2017 Patient Education: Patient Medication Summary Completed 01/24/2017 Visit Plan: Right foot pain-discussed with patient today in the office-xray right foot due to history of injury and pain-if negative, consider doppler to r/o thrombosis even though less likely due to chronic blood thinning medication. Instructed patient to call for increased swelling, pain, shortness of breath, other symptoms as discussed. Patient verbalized understanding. 12/24/2016 Appointment: Iris Andrade WPtel: [phone] [phone] [place] (30 min) Complex 12/24/2016 Patient Education: Patient Medication Summary Completed 12/24/2016 Visit Plan: Osteoporosis - continue with forteo for now - samples for pt today, call when runs out 11/23/2016 Appointment: Juju Maurer WPtel: [phone] [facility] [place] (15 min) Moderate 11/23/2016 Patient Education: Patient Medication Summary Completed 11/23/2016 Visit Plan: Hypothyroidism - pt with chronic hypothyroidism , continue with current medication, will monitor pt to signs or symptoms of lack of adequate supplementation. Pt is to continue with current dose of medication unless directed otherwise. Check labs at regular intervals wither q 3 months or q 6 months based on previous levels of control. Afib - monitor symptoms - call if not improving - 10/11/2016 Appointment: Juju Maurer WPtel: [phone] [facility] [place] (15 min) Moderate 10/11/2016 Patient Education: Patient Medication Summary Completed 10/11/2016 Visit Plan: Osteoporosis - based on most recent DEXA scan, pt needs to continue with treatment, we have discussed current treatment options , pros/cons, and pt will take treatments as directed, pt to call if any adverse side effects from medication arise. RX for forteo - pt has been on bisphosphonates in the past. 06/28/2016 Patient Education: Patient Medication Summary Completed 06/28/2016 Visit Plan: Hypothyroidism - pt with chronic hypothyroidism , continue with current medication, will monitor pt to signs or symptoms of lack of adequate supplementation. Pt is to continue with current dose of medication unless directed otherwise. Check labs at regular intervals wither q 3 months or q 6 months based on previous levels of control. 06/08/2016 Appointment: Juju Maurer WPtel: [phone] [facility] [place] (15 min) Moderate 06/08/2016 Patient Education: Patient Medication Summary Completed 06/08/2016 Patient Education: Patient Medication Summary Completed 06/03/2016 Visit Plan: Abscess/Cellulitis - The patient was instructed in appropriate wound care. The patient was instructed to use the antibiotic ointment as per RX. The patient is to call for any change in symptoms , increase in size of the lesion, increase in pain. 04/14/2016 Patient Education: Patient Medication Summary Completed 04/14/2016 Visit Plan: Esophageal Reflux - the patient has been counseled against excessive intake of caffeine, spicy foods, peppermint, and cinnamon - all of which can exacerbate esophageal reflux. The patient is to take medications as prescribed and call the office if the symptoms are not improving. 02/10/2016 Appointment: Juju Maurer WPtel: [phone] [phone] (15 min) Moderate 02/10/2016 Patient Education: Patient Medication Summary Completed 02/10/2016 Visit Plan: Atrial Fibrillation - pt on chronic anticoagulation and is currently rate controlled. The pt is to have labs done as appropriate to monitor medication levels and is to report if they start to feel as if their heart rate is becoming uncontrolled. Hypothyroidism - pt with chronic hypothyroidism, continue with current medication, will monitor pt to signs or symptoms of lack of adequate supplementation. Pt is to continue with current dose of medication unless directed otherwise. Check labs at regular intervals wither q 3 months or q 6 months based on previous levels of control. 11/11/2015 Patient Education: Patient Medication Summary Completed 11/11/2015 Visit Plan: Atrial Fibrillation - pt on chronic anticoagulation and is currently rate controlled. The pt is to have labs done as appropriate to monitor medication levels and is to report if they start to feel as if their heart rate is becoming uncontrolled. Vitamin d deficiency - increase vitamin d to 5000 units daily to help with fatigue. Pt to call if symptoms worsening - continue with statin, synthroid, labs to be checked on schedule. 09/10/2015 Appointment: [facility] Maurer WPtel[facility] [phone] [id number] [place] (15 min) Moderate 09/10/2015 Patient Education: Patient Medication Summary Completed 09/10/2015 Visit Plan: Atrial Fibrillation - pt to start on chronic anticoagulation and is currently rate controlled. The pt is to have labs done as appropriate to monitor medication levels and is to report if they start to feel as if their heart rate is becoming uncontrolled. start on the xarelto 20mg daily continue with the cartia extended release 120mg daily continue with the flecanide 50mg twice daily IF you have an episode of the atrial fibrillation or atrial tachycardia and it does not resolve in 5 minutes with the valsalva manuever (bearing down like having a bowel movement) then take a dose of the 60mg DILTIAZEM x 1 dose. this is the only medication to ta Hypertension - well controlled - continue with current medications, continue with no added salt diet. Pt has been encouraged to exercise daily. The pt has been advised to call the office if there are any acute concerns about change in blood pressure readings at home. 07/08/2015 Appointment: Juju Maurer WPtel: [address] [place], [place] [id number] [place] Follow up 07/08/2015 Patient Education: Patient Medication Summary Completed 07/08/2015 Visit Plan: Hypothyroidism - pt with chronic hypothyroidism , continue with current medication, will monitor pt to signs or symptoms of lack of adequate supplementation. Pt is to continue with current dose of medication unless directed otherwise. Check labs at regular intervals wither q 3 months or q 6 months based on previous levels of control. Atrial Fibrillation - the pt is not currently on daily medication for blood thinning or rhythm - she sees a specialist in [place], will continue with current treatment with a "pill in the pocket - 01/07/2015 Appointment: Juju Maurer WPtel: [address] [place], [place] [id number] [place] Follow up 01/07/2015 Patient Education: Patient Medication Summary Completed 01/07/2015 Appointment: Juju Maurer WPtel: [address] [place], [place] [id number] [place] Follow up 12/17/2014 Visit Plan: Atrial Fibrillation - pt on chronic anticoagulation and is currently rate controlled. The pt is to have labs done as appropriate to monitor medication levels and is to report if they start to feel as if their heart rate is becoming uncontrolled. Hypothyroidism - pt with chronic hypothyroidism, continue with current medication, will monitor pt to signs or symptoms of lack of adequate supplementation. Pt is to continue with current dose of medication unless directed otherwise. Check labs at regular intervals wither q 3 months or q 6 months based on previous levels of control. 11/05/2014 Appointment: Juju Maurer WPtel: [phone] [phone] Follow up 11/05/2014 Patient Education: Patient Medication Summary Completed 11/05/2014 Appointment: Juju Maurer WPtel: [phone] [phone] Follow up 10/28/2014 Visit Plan: Afib-on xarelto-recent episode-converted back to sinus rhythm-follow up with Dr Martinez this afternoon Elevated blood sugar- check Hgb A1c Hypothyroidism - pt with chronic hypothyroidism, continue with current medication, will monitor pt to signs or symptoms of lack of adequate supplementation. Pt is to continue with current dose of medication unless directed otherwise. Check labs at regular intervals wither q 3 months or q 6 months based on previous levels of control. 09/16/2014 Appointment: Follow up 09/16/2014 Patient Education: Patient Medication Summary Completed 09/16/2014 Care Plan: COMPLETE CBC AUTOMATED LOINC : 72313-6 Ordered 09/16/2014 Visit Plan: Urinary Tract Infection-discussed natural and expected course of this diagnosis and to alert me if symptoms do not follow expected course, or if any worse. UA positive for infection today in the office- plan to send for culture and will call patient with results. RX sent to patient' s pharmacy. Avoid tub baths, restrictive underwear, etc. Recommend patient start on probiotic while taking the antibiotic to prevent diarrhea. Patient verbalized understanding of plan. 08/22/2014 Appointment: Sick 08/22/2014 Patient Education: Patient Medication Summary Completed 08/22/2014 Visit Plan: Hypothyroidism - pt with chronic hypothyroidism , continue with current medication, will monitor pt to signs or symptoms of lack of adequate supplementation. Pt is to continue with current dose of medication unless directed otherwise. Check labs at regular intervals wither q 3 months or q 6 months based on previous levels of control. Hyperlipidemia - pt has been counseled about appropriate diet, exercise, and need for low fat food choices. I have discussed the need for the patient to take medications as prescribed. If the patient has negative side effects from the medication, they are to CALL the office and not abruptly discontinue the medication without discussion with a practicioner in the office. We will check labs in 3-6 months for follow up on the patient's chronic medical problem and to assure normal liver response to medications. 04/29/2014 Appointment: Ju[facility] Maurer WPtel[facility] [phone] [id number] [place] Follow up 04/29/2014 Patient Education: Patient Medication Summary Completed 04/29/2014 Appointment: Juju Maurer WPtel: [facility] [place] Follow up 04/22/2014 Visit Plan: Atrial Fibrillation - pt is currently rate controlled. The pt is to have labs done as appropriate to monitor medication levels and is to report if they start to feel as if their heart rate is becoming uncontrolled. Hypothyroidism - pt with chronic hypothyroidism, continue with current medication, will monitor pt to signs or symptoms of lack of adequate supplementation. Pt is to continue with current dose of medication unless directed otherwise. Check labs at regular intervals wither q 3 months or q 6 months based on previous levels of control. Hyperlipidemia - pt has been counseled about appropriate diet, exercise, and need for low fat food choices. I have discussed the need for the patient to take medications as prescribed. If the patient has negative side effects from the medication, they are to CALL the office and not abruptly discontinue the medication without discussion with a practicioner in the office. We will check labs in 3-6 months for follow up on the patient's chronic medical problem and to assure normal liver response to medications. 10/22/2013 Appointment: Juju Maurer WPtel: [id number] [place] Follow up 10/22/2013 Patient Education: Patient Medication Summary Completed 10/22/2013 Visit Plan: Suture removal 06/12/2013 Appointment: Iris Andrade WPtel: [phone] [place] Follow up 06/12/2013 Patient Education: Patient Medication Summary Completed 06/12/2013 Appointment: Juju Maurer WPtel: [id number] [facility] 06/05/2013 Patient Education: Patient Medication Summary Completed 06/05/2013 Visit Plan: Arthritis- occasionally uncontrolled symptoms- recommend pt to use topical antiinflammatory as directed for pain control. Use tylenol for break through pain symptoms. Sacroilitis - recommended lumbar support when driving or sittin gfor prolonged period of time, also recommended continuation of TiaChi exercises. Diarrhea - suspect is due to diet involving some fatty foods, pt to avoid fatty foods, and call if symptoms do noit improve. Hypothyroids - continue with home meds. 04/23/2013 Appointment: Juju Maurer WPtel: [phone] [phone] Follow up 04/23/2013 Patient Education: Patient Medication Summary Completed 04/23/2013 Appointment: Juju Maurer WPtel: [phone] [facility] Follow up 04/12/2013 Visit Plan: Diarrhea and intermittent abdominal pain- recommended pt to have her gallbladder scanned to see if there is gallbladder dysfunction causing her diarrhea when she takes in fatty foods. 01/31/2013 Appointment: Juju Maurer [facility] [phone] [id number] [facility] 01/31/2013 Patient Education: Patient Medication Summary Completed 01/31/2013 Visit Plan: Atrial Fibrillation - pt is currently rate controlled. The pt is to have labs done as appropriate to monitor medication levels and is to report if they start to feel as if their heart rate is becoming uncontrolled. Hypothyroidism - pt with chronic hypothyroidism, continue with current medication, will monitor pt to signs or symptoms of lack of adequate supplementation. Pt is to continue with current dose of medication unless directed otherwise. Check labs at regular intervals wither q 3 months or q 6 months based on previous levels of control. Hyperlipidemia - pt has been counseled about appropriate diet, exercise, and need for low fat food choices. I have discussed the need for the patient to take medications as prescribed. If the patient has negative side effects from the medication, they are to CALL the office and not abruptly discontinue the medication without discussion with a practicioner in the office. We will check labs in 3-6 months for follow up on the patient's chronic medical problem and to assure normal liver response to medications. 10/10/2012 Appointment: Juju Maurer WPtel: [phone] [id number] [place] New Patient 10/10/2012 Patient Education: Patient Medication Summary Completed 10/10/2012 Referral: Deidra Scales WPtel: [phone] [id number] Referral Appointment Requested Referral: Deidra Scales WPtel: [phone] Referral info faxed to Dr. Scales. Her office will call patient to schedule an appt after her info is reviewed. Completed Instructions Comment . Hypothyroidism - pt with chronic hypothyroidism, continue with current medication, will monitor pt to signs or symptoms of lack of adequate supplementation. Pt is to continue with current dose of medication unless directed otherwise. Check labs at regular intervals wither q 3 months or q 6 months based on previous levels of control. Atrial Fibrillation - the pt is not currently on daily medication for blood thinning or rhythm - she sees a specialist in [place], will continue with current treatment with a "pill in the pocket - . Urinary Tract Infection-discussed natural and expected course of this diagnosis and to alert me if symptoms do not follow expected course, or if any worse. UA positive for infection today in the office-plan to send for culture and will call patient with results. RX sent to patient's pharmacy. Avoid tub baths, restrictive underwear, etc. Recommend patient start on probiotic while taking the antibiotic to prevent diarrhea. Patient verbalized understanding of plan. . Hypothyroidism - pt with chronic hypothyroidism, continue with current medication, will monitor pt to signs or symptoms of lack of adequate supplementation. Pt is to continue with current dose of medication unless directed otherwise. Check labs at regular intervals wither q 3 months or q 6 months based on previous levels of control. . Atrial Fibrillation - pt is currently rate controlled. The pt is to have labs done as appropriate to monitor medication levels and is to report if they start to feel as if their heart rate is becoming uncontrolled. Hypothyroidism - pt with chronic hypothyroidism, continue with current medication, will monitor pt to signs or symptoms of lack of adequate supplementation. Pt is to continue with current dose of medication unless directed otherwise. Check labs at regular intervals wither q 3 months or q 6 months based on previous levels of control. Hyperlipidemia - pt has been counseled about appropriate diet, exercise, and need for low fat food choices. I have discussed the need for the patient to take medications as prescribed. If the patient has negative side effects from the medication, they are to CALL the office and not abruptly discontinue the medication without discussion with a practicioner in the office. We will check labs in 3-6 months for follow up on the patient's chronic medical problem and to assure normal liver response to medications. . Suture removal pennsaid - apply 20-30 drops to affected site up to four times daily. Arthritis- occasionally uncontrolled symptoms- recommend pt to use topical antiinflammatory as directed for pain control. Use tylenol for break through pain symptoms. Sacroilitis - recommended lumbar support when driving or sittin gfor prolonged period of time, also recommended continuation of TiaChi exercises. Diarrhea - suspect is due to diet involving some fatty foods, pt to avoid fatty foods, and call if symptoms do noit improve. Hypothyroids - continue with home meds. . Atrial Fibrillation - pt is currently rate controlled. The pt is to have labs done as appropriate to monitor medication levels and is to report if they start to feel as if their heart rate is becoming uncontrolled. Hypothyroidism - pt with chronic hypothyroidism, continue with current medication, will monitor pt to signs or symptoms of lack of adequate supplementation. Pt is to continue with current dose of medication unless directed otherwise. Check labs at regular intervals wither q 3 months or q 6 months based on previous levels of control. Hyperlipidemia - pt has been counseled about appropriate diet, exercise, and need for low fat food choices. I have discussed the need for the patient to take medications as prescribed. If the patient has negative side effects from the medication, they are to CALL the office and not abruptly discontinue the medication without discussion with a practicioner in the office. We will check labs in 3-6 months for follow up on the patient's chronic medical problem and to assure normal liver response to medications. increase vitamin d 5000 units daily . Atrial Fibrillation - pt on chronic anticoagulation and is currently rate controlled. The pt is to have labs done as appropriate to monitor medication levels and is to report if they start to feel as if their heart rate is becoming uncontrolled. Vitamin d deficiency - increase vitamin d to 5000 units daily to help with fatigue. Pt to call if symptoms worsening - continue with statin, synthroid, labs to be checked on schedule. . Atrial Fibrillation - pt on chronic anticoagulation and is currently rate controlled. The pt is to have labs done as appropriate to monitor medication levels and is to report if they start to feel as if their heart rate is becoming uncontrolled. Hypothyroidism - pt with chronic hypothyroidism, continue with current medication, will monitor pt to signs or symptoms of lack of adequate supplementation. Pt is to continue with current dose of medication unless directed otherwise. Check labs at regular intervals wither q 3 months or q 6 months based on previous levels of control. get iron and b12 from diet if possible, get a vitamin and take daily. . Hypothyroidism - pt with chronic hypothyroidism, continue with current medication, will monitor pt to signs or symptoms of lack of adequate supplementation. Pt is to continue with current dose of medication unless directed otherwise. Check labs at regular intervals wither q 3 months or q 6 months based on previous levels of control. Hyperlipidemia - pt has been counseled about appropriate diet, exercise, and need for low fat food choices. I have discussed the need for the patient to take medications as prescribed. If the patient has negative side effects from the medication, they are to CALL the office and not abruptly discontinue the medication without discussion with a practicioner in the office. We will check labs in 3-6 months for follow up on the patient's chronic medical problem and to assure normal liver response to medications. . Hypothyroidism - pt with chronic hypothyroidism, continue with current medication, will monitor pt to signs or symptoms of lack of adequate supplementation. Pt is to continue with current dose of medication unless directed otherwise. Check labs at regular intervals wither q 3 months or q 6 months based on previous levels of control. Afib - monitor symptoms - call if not improving - . Hypothyroidism - pt with chronic hypothyroidism, continue with current medication, will monitor pt to signs or symptoms of lack of adequate supplementation. Pt is to continue with current dose of medication unless directed otherwise. Check labs at regular intervals wither q 3 months or q 6 months based on previous levels of control. Atrial tachycardia - defer treatment to Dr. Martinez and Dr. Ocasio. Hyperlipidemia - pt has been counseled about appropriate diet, exercise, and need for low fat food choices. I have discussed the need for the patient to take medications as prescribed. If the patient has negative side effects from the medication, they are to CALL the office and not abruptly discontinue the medication without discussion with a practitioner in the office. We will check labs in 3-6 months for follow up on the patient's chronic medical problem and to assure normal liver response to medications. . Esophageal Reflux - the patient has been counseled against excessive intake of caffeine, spicy foods, peppermint, and cinnamon - all of which can exacerbate esophageal reflux. The patient is to take medications as prescribed and call the office if the symptoms are not improving. start on the xarelto 20mg daily continue with the cartia extended release 120mg daily continue with the flecanide 50mg twice daily IF you have an episode of the atrial fibrillation or atrial tachycardia and it does not resolve in 5 minutes with the valsalva manuever (bearing down like having a bowel movement) then take a dose of the 60mg DILTIAZEM x 1 dose. this is the only medication to take - (you do not take an extra xarelto or flecanide or the extended release cartia). . Atrial Fibrillation - pt to start on chronic anticoagulation and is currently rate controlled. The pt is to have labs done as appropriate to monitor medication levels and is to report if they start to feel as if their heart rate is becoming uncontrolled. start on the xarelto 20mg daily continue with the cartia extended release 120mg daily continue with the flecanide 50mg twice daily IF you have an episode of the atrial fibrillation or atrial tachycardia and it does not resolve in 5 minutes with the valsalva manuever (bearing down like having a bowel movement) then take a dose of the 60mg DILTIAZEM x 1 dose. this is the only medication to ta Hypertension - well controlled - continue with current medications, continue with no added salt diet. Pt has been encouraged to exercise daily. The pt has been advised to call the office if there are any acute concerns about change in blood pressure readings at home. . Medicare Exam - today we discussed the patients past history, immunizations, preventative exams/evaluations - colonoscopy, fecal occult blood testing, routine labs for renal function, glucose, cholesterol, osteoporosis evaluations, cardiovascular testing and cancer screenings. We have also discussed mental health and the signs/symptoms of depression. The patient was advised of home safety evaluations and the need to make sure that as the aging process continues, we need to be aware of different ways to make the home a safer place to reside. The patient has also been counseled that exercise is necessary - and of utmost importance as we age to help decrease fall risk and to maintain independence in the home. Today we discussed the need for the patient to create paperwork for Advanced directives as well as for the patient to provide this office with a copy of her DOPA paperwork for health care surrogate. . Abscess/Cellulitis - The patient was instructed in appropriate wound care. The patient was instructed to use the antibiotic ointment as per RX. The patient is to call for any change in symptoms, increase in size of the lesion, increase in pain. . Osteoporosis - continue with forteo for now -samples for pt today, call when runs out . Diarrhea and intermittent abdominal pain- recommended pt to have her gallbladder scanned to see if there is gallbladder dysfunction causing her diarrhea when she takes in fatty foods. Check HgbA1C, TSH, Free T4, chem panel . Afib-on xarelto-recent episode-converted back to sinus rhythm-follow up with Dr Martinez this afternoon Elevated blood sugar-check Hgb A1c Hypothyroidism - pt with chronic hypothyroidism, continue with current medication, will monitor pt to signs or symptoms of lack of adequate supplementation. Pt is to continue with current dose of medication unless directed otherwise. Check labs at regular intervals wither q 3 months or q 6 months based on previous levels of control. X-RAY RIGHT FOOT POTENITAL US OF RIGHT LOWER EXTREMITY . Right foot pain-discussed with patient today in the office-xray right foot due to history of injury and pain-if negative, consider doppler to r/o thrombosis even though less likely due to chronic blood thinning medication. Instructed patient to call for increased swelling, pain, shortness of breath, other symptoms as discussed. Patient verbalized understanding. . Osteoporosis - based on most recent DEXA scan, pt needs to continue with treatment, we have discussed current treatment options, pros/ cons, and pt will take treatments as directed, pt to call if any adverse side effects from medication arise. RX for forteo - pt has been on bisphosphonates in the past. . Hypothyroidism - pt with chronic hypothyroidism, continue with current medication, will monitor pt to signs or symptoms of lack of adequate supplementation. Pt is to continue with current dose of medication unless directed otherwise. Check labs at regular intervals wither q 3 months or q 6 months based on previous levels of control. Hyperlipidemia - pt has been counseled about appropriate diet, exercise, and need for low fat food choices. I have discussed the need for the patient to take medications as prescribed. If the patient has negative side effects from the medication, they are to CALL the office and not abruptly discontinue the medication without discussion with a practitioner in the office. We will check labs in 3-6 months for follow up on the patient's chronic medical problem and to assure normal liver response to medications. Atrial tachycardia - pt to continue with Cartia - and aspirin. bone density will be due in May of 2018 . Hypothyroidism - pt with chronic hypothyroidism, continue with current medication, will monitor pt to signs or symptoms of lack of adequate supplementation. Pt is to continue with current dose of medication unless directed otherwise. Check labs at regular intervals wither q 3 months or q 6 months based on previous levels of control. Hyperlipidemia - pt has been counseled about appropriate diet, exercise, and need for low fat food choices. I have discussed the need for the patient to take medications as prescribed. If the patient has negative side effects from the medication, they are to CALL the office and not abruptly discontinue the medication without discussion with a practitioner in the office. We will check labs in 3-6 months for follow up on the patient's chronic medical problem and to assure normal liver response to medications. referral to dr. scales for well woman - referral for august . Atrial Fibrillation - pt on chronic anticoagulation and is currently rate controlled. The pt is to have labs done as appropriate to monitor medication levels and is to report if they start to feel as if their heart rate is becoming uncontrolled. Hypothyroidism - pt with chronic hypothyroidism, continue with current medication, will monitor pt to signs or symptoms of lack of adequate supplementation. Pt is to continue with current dose of medication unless directed otherwise. Check labs at regular intervals wither q 3 months or q 6 months based on previous levels of control.
--- OUTSIDE RECORDS SUMMARY | 2018-05-24 11:45 | XMS REPORT ---
Author Author VY DE SOUZA [employer] Address Unknown Phone Unavailable Care Team Providers Care Planer Operator Name Role Phone VY DE SOUZA CP Unavailable Allergies, Adverse Reactions, Alerts Substance Reaction Event Type N.K.D.A. Info Not Available Non Drug Allergy Problems Problem Type Condition Code Onset Dates Condition Status Assessment Petechiae R23.3 Active Problem Vaginal bleeding N93.9 Active Problem Hx of manager long term care use of blood thinners Z79.01 Active Problem Varicosity I86.8 Active Assessment Vaginal bleeding N93.9 Active Assessment Hx of manager long term care use of blood thinners Z79.01 Active Problem Petechiae R23.3 Active Assessment Varicosity I86.8 Active Medications Medication Code System Code Instructions Start Date End Date Status Dosage Xarelto [facility] [address]-54 20 MG Orally Once a day not defined Synthroid [facility] [address]-05 25 MCG Orally Once a day not defined Flecainide Acetate [facility] [address]-53 100 MG Orally every 12 hrs not defined Cardizem CD [facility] [address]-48 120 MG Orally Once a day not defined ZyrTEC [facility] 0 not defined Pravastatin Sodium [facility] [address]-88 20 MG Orally Once a day not defined Procedures Procedure Coding System Code Date [facility] VISIT ESTABLISHED PATIENT CPT-4 G0467 Sep 24, 2015 Office Visit, Est Pt., Level 3 CPT-4 74506 Sep 24, 2015 URINALYSIS, AUTO, W/O SCOPE CPT-4 60791 Sep 24, 2015 [facility] NOBLL Sep 24, 2015 Vital Signs Date/Time: Sep 24, 2015 Temperature 98.1 F Weight 172.4 lbs Height 67 in BMI 27.00 Index Blood Pressure Diastolic 82 mmHg Blood Pressure Systolic 145 mmHg Cardiac Monitoring Heart Rate 72 bpm Results Name Result Date Reference Range Unit Abnormality Flag UA LONG DIP (IN HOUSE) ----LISA 1+ 20150924 ----NIT negative 20150924 ----Exp date 20150924 ----Lot # [id number] ----SG 1.015 20150924 ----KET negative 20150924 ----KHANG negative 20150924 ----GLU negative 20150924 ----Odor mild 20150924 ----pH 6.0 20150924 ----BLO 3+ 20150924 ----URO 0.2 20150924 ----Protein negative 20150924 ----Lot # [id number] ----Exp date 20150924 ----Clarity clear 20150924 ----Color yellow [id number] Summary Purpose eClinicalWorks Submission
--- OUTSIDE RECORDS SUMMARY | 2018-05-24 11:45 | XMS REPORT ---
Author Author VY DE SOUZA Organization [employer] Address Unknown Phone Unavailable Care Team Providers Care Registered Nurse Cardiac Name Role Phone VY DE SOUZA CP Unavailable Allergies No Known Allergies Problems Problem Type Condition Code Onset Dates Condition Status Problem Vaginal bleeding N93.9 Active Problem Hx of senior care use of blood thinners Z79.01 Active Problem Varicosity I86.8 Active Problem Petechiae R23.3 Active Medications Medication Code System Code Instructions Start Date End Date Status Dosage Macrobid [facility] [address]-11 100 MG Orally every 12 hrs Sep 30, 2015Sep 1 capsule with food Results No Known Results Summary Purpose eClinicalWorks Submission
[2018-05-24 11:50] VITALS: BP 133/68
--- NOTE | 2018-05-24 12:06 | Conscious Sedation/ASA ---
Conscious Sedation Pre-Proced Time Reviewed: 12:00 ASA Class: 2 Airway Mallampati Classification: (rampart appropriate class) I. II. III, IV Lungs Heart ASA score ASA 1: a normal healthy patient ASA 2: a patient with a mild systemic disease (mid diabetes, controlled hypertension, obesity ASA 3: a patient with a severe systemic disease that limits activity (angina , COPD, prior Myocardial infarction) ASA 4: a patient with an incapacitating disease that is a constant threat to life (CHF, renal failure) ASA 5: a moribund patient not expected to survive 24 hrs. (ruptured aneurysm) ASA 6: a declared brain patient whose organs are being harvested. For emergent operations, add the letter E after the classification Grade 2 Sedation Plan: Analgesia, Amnesia, Plan communicated to team members, Discussed options with patient/fam, Discussed risks with patient/fam Note The patient is an appropriate candidate to undergo the planned procedure, sedation, and anesthesia. The patient immediately re-assessed prior to indication. ANASTASIIA PRAJAPATI MD May 24, 2018 12:06 pm
--- NOTE | 2018-05-24 12:07 | Progress Note-Pre Operative ---
Pre-Operative Progress Note H&P Reviewed The H&P was reviewed, patient examined and no changes noted. Date Seen by Provider: May 24, 2018 Time Seen by Provider: 12:00 Date H&P Reviewed: May 24, 2018 Time H&P Reviewed: 12:00 Pre-Operative Diagnosis: screening colonoscopy. ANASTASIIA PRAJAPATI MD May 24, 2018 12:07 pm
[2018-05-24] MEDS ORDERED: NS IV 500 ML 500 ML ONE (12:10)
[2018-05-24] MEDS ORDERED: ONDANSETRON 4 MG/2 ML (SDV) Z0FRAN IV PRN (12:15)
[2018-05-24] MEDS ORDERED: morphine INJ 10 MG/ML 1ML (SYR OR VIAL) IV PRN (12:15)
[2018-05-24] MEDS ORDERED: HYDROcodone/APAP 5 MG/325 MG (LORTAB) TAB PO PRN (12:15)
[2018-05-24] MEDS ORDERED: ACETAMINOPHEN 325 MG TABLET PO PRN (12:15)
[2018-05-24] MEDS ORDERED: fentaNYL INJECTION 100 MCG/2 ML AMP ONE (13:10)
[2018-05-24] MEDS ORDERED: MIDAZOLAM 2 MG/2 ML (VERSED) VIAL ONE ×3 (13:10)
[2018-05-24] MEDS: MIDAZOLAM 2 MG/2 ML (VERSED) VIAL IVP PRN ×3 (13:15→13:21)
[2018-05-24] MEDS: fentaNYL INJECTION 100 MCG/2 ML AMP IVP PRN ×2 (13:16→13:22)
[2018-05-24 13:45] VITALS: BP 114/59
--- NOTE | 2018-05-24 13:51 | Progress Note-Post Operative ---
Post-Operative Progess Note Surgeon (s)/Teacher Theater Arts (s) Surgeon ANASTASIIA PRAJAPATI MD Teacher Theater Arts: NONE Pre-Operative Diagnosis screening colonoscopy. Post-Operative Diagnosis chronic stage 2 ext and int hemorrhoids. Procedure & Operative Findings Date of Procedure 05/24/18 Procedure Performed/Findings Colonoscopy. Anesthesia Type CS Estimated Blood Loss Estimated blood loss (mL): minimal Specimens/Packing Specimens Removed none ANASTASIIA PRAJAPATI MD May 24, 2018 1:51 pm
--- NOTE | 2018-05-24 13:53 | Discharge Inst-Surgical ---
D/C Lap Instructions-ALO Follow Up 10 years. Activity as tolerated High Fiber Diet 25g or more per day Avoid Alcohol, Caffeine, Spicy [place] and Acid foods. Drink 64 fluid oz or more of fluids per day. Symptoms to Report: Fever over 101 degree F, Nausea/Vomiting If any problems/questions: Contact your physician or go to Emergency Room ANASTASIIA PRAJAPATI MD May 24, 2018 1:53 pm
[2018-05-24 14:15] VITALS: BP 112/55
[2018-05-24 14:40] VITALS: BP 112/55
--- NOTE | 2018-05-24 18:30 | OPERATIVE REPORT ---
DATE OF SERVICE: 05/24/2018 ATTENDING PRIMARY CARE PHYSICIAN: Juju Maurer MD PREOPERATIVE DIAGNOSIS: Screening colonoscopy. POSTOPERATIVE DIAGNOSIS: Mild stage I external and internal hemorrhoids. Remainder of the rectum and colon were normal. PROCEDURE: Colonoscopy. SURGEON: Anastasiia Prajapati MD ANESTHESIA: Conscious sedation. ESTIMATED BLOOD LOSS: Minimal. FINDINGS: Chronic stage I external and internal hemorrhoids, not actively edematous nor inflamed and no bleeding. There was a palpable mass anteriorly, which was most likely secondary to a partial hysterectomy as well as cystocele and rectocele repair in 1994. The remainder of the rectum and colon were normal. There were no polyps or any neoplasms identified. DISPOSITION: The patient tolerated the procedure well. INDICATIONS: The patient is a 72-year-old female in need of a screening colonoscopy. Her last colonoscopy was approximately 14 years ago and she reports that to be normal. Since that time, she states that she is doing well and does not report any major issues with diarrhea nor constipation as well as no red blood per rectum nor any dark tarry stools. She also does not report any family history of colon cancer. DESCRIPTION OF PROCEDURE: The patient was brought to the operating room, laid supine on the table. After adequate IV pain and sedative medications and conscious sedation anesthesia, a digital rectal examination was performed. Mild chronic stage I external and internal hemorrhoids were identified, which were not actively edematous nor inflamed and no bleeding. Normal sphincter tone was felt. There was a palpable mass anteriorly. This may be secondary to scar tissue formation from a previous partial hysterectomy as well as a cystocele repair. If she does develop any gynecologic symptomatology, we will recommend a followup with her fire extinguisher repairer inspector. The endoscope was then intubated into the anus and rectum gently insufflated. The endoscope was then advanced through the valves of Quinones in the rectum with no polyps or any neoplasms. We then proceeded through the sigmoid colon where no diverticulosis identified. The endoscope was then advanced to the remainder of the descending, transverse and ascending colon to the cecum. These segments were normal. There were no polyps or any neoplasms identified. The endoscope was then slowly withdrawn while taking a second look and suctioning of residual air with no additional findings. The patient tolerated the procedure well. We will recommend continued medical management with a high-fiber diet with at least 25 grams of fiber per day as well as at least 64 fluid ounces of water daily to promote soft stools on a daily basis. She does not need another colonoscopy for another 10 years. Job ID: [id number] DocumentID: [id number] Dictated Date: 05/24/2018 13:40:32 Automotive Collision Estimator Date: 05/24/2018 18:29:33 Dictated By: ANASTASIIA PRAJAPATI MD MTDD
== END 2018-05-24 14:40 | disposition home or self-care (01) ==
LOC: ENDO 11:38
PROVIDERS: ATTEND Surgery
DX: Z12.11 Encounter for screening for malignant neoplasm of colon (principal); K64.0 First degree hemorrhoids; I48.91 Unspecified atrial fibrillation; G47.33 Obstructive sleep apnea (adult) (pediatric); Z79.82 Long term (current) use of aspirin

== ENCOUNTER → 2019-10-29 | Outpatient (CLI) | payer MEDICARE | LOC: CARD 08:38 | PROVIDERS: ATTEND Physician Assistant | DX: I08.1 Rheumatic disorders of both mitral and tricuspid valves (principal); I10 Essential (primary) hypertension; E78.5 Hyperlipidemia, unspecified; G47.33 Obstructive sleep apnea (adult) (pediatric); I48.0 Paroxysmal atrial fibrillation; R00.2 Palpitations; Z82.49 Family history of ischemic heart disease and other diseases of the circulatory system | CPT/HCPCS: 93306 ==

== ENCOUNTER → 2020-10-13 | Outpatient (CLI) | payer MEDICARE ==
[~2020-10-13] VITALS: Ht 170 cm; Wt 72.0 kg
[~2020-10-13] MED LIST changes: +CATHETER FLUSH 10 ML SYR IV PRN; -PANT40TA3 PO; +PANT40TA52 PO; +REGADENOSON 0.4 MG/5 ML SYR (LEXISCAN) IV ONE
[2020-10-13 09:42] VITALS: BP 152/76
--- NOTE | 2020-10-13 13:17 | Cardiology Stress Test Report ---
Stress Test Report Date of Procedure/Referring: Date of Procedure: Oct 13, 2020 PCP Kellie Rojo Admitting Physician Juju Maurer MD Indications: atrial fibrillation Baseline Blood Pressure: Blood Pressure Systolic: 152 Blood Pressure Diastolic: 76 Baseline Vitals Vital Signs Date Time Temp Pulse Resp B/P (MAP) Pulse Ox O2 Delivery O2 Flow Rate FiO2 10/13/20 09:42 66 152/76 (101) 98 Baseline EKG: Baseline EKG: sinus rhythm Summary After explaining the procedure to the patient, she signed a consent and then brought to the stress nuclear laboratory. Patient received 0.4 mg Lexiscan for stress test, ECG, heart rate and blood pressure were monitored continuously. Resting and stress dose of radio tracer were injected, imaging was acquired and reviewed in short axis, horizontal long axis and vertical long axis views. TID: 1.04 SSS: 1 SDS: 1 EF: 75 1. Patient tolerated Lexiscan well 2. No significant ischemia or infarction on SPECT images 3. Normal left ventricular size, EF 75 percent MEIR SHAVER MD Oct 13, 2020 13:17
== END ==
LOC: CARD 08:15
PROVIDERS: ATTEND Physician Assistant
DX: I48.0 Paroxysmal atrial fibrillation (principal); I10 Essential (primary) hypertension; E78.5 Hyperlipidemia, unspecified
CPT/HCPCS: 78452; 93017; A9502

== ENCOUNTER → 2021-01-05 | Outpatient (CLI) | payer MEDICARE ==
[~2021-01-05] MED LIST changes: -CATHETER FLUSH 10 ML SYR IV PRN; -REGADENOSON 0.4 MG/5 ML SYR (LEXISCAN) IV ONE
== END ==
LOC: CARD 12:35
PROVIDERS: ATTEND Internal Medicine Cardiovascular Disease
DX: I10 Essential (primary) hypertension (principal); I34.0 Nonrheumatic mitral (valve) insufficiency
CPT/HCPCS: 93306

== ENCOUNTER → 2023-03-09 | Outpatient (CLI) | payer MEDICARE ==
[~2023-03-09] MED LIST changes: +CATHETER FLUSH 10 ML SYR IVP PRN
[2023-03-09 11:15] VITALS: BP 180/74
--- NOTE | 2023-03-09 15:53 | Cardiology Stress Test Report ---
Stress Test Report Date of Procedure/Referring: Date of Procedure: March 09, 2023 PCP Parish Maurer MD Admitting Physician Admitting Physician: Attending Physician: Katharina Martinez MD Baseline Heart Rate: 68 Baseline Blood Pressure: Blood Pressure Systolic: 180 Blood Pressure Diastolic: 74 Vital Signs Date Time Temp Pulse Resp B/P (MAP) Pulse Ox O2 Delivery O2 Flow Rate FiO2 03/09/23 11:15 117 180/74 (109) Baseline Vital Signs Vital Signs Date Time Temp Pulse Resp B/P (MAP) Pulse Ox O2 Delivery O2 Flow Rate FiO2 03/09/23 11:15 117 180/74 (109) Baseline EKG: Baseline EKG: NSR Summary: After explaining the procedure and details to the patient, she signed the consent and was brought to the stress nuclear laboratory. Patient exercised on standard Miguel protocol, EKG, heart rate and blood pressure were monitored continuously, resting and stress doses of radio tracer were injected, imaging was acquired and reviewed in the short axis, horizontal long axis and vertical long axis views Patient was able to exercise for a total of 3 minutes on Miguel protocol, METs 4.6 Maximum heart rate 138 Maximum blood pressure 180/83 Stress EKG, Minimal nondiagnostic changes Recovery EKG, Return to baseline TID: 1.06 SSS: 6 SDS: 6 EF: 72 Conclusion: Fair exercise tolerance for a total of 3 minutes on standard Miguel protocol, 4.6 METS achieving 97% of maximal expected heart rate Appropriate heart rate response to exercise with hypertensive response to exercise with peak blood pressure 180/83 return to baseline during recovery Nondiagnostic EKG changes with exercise return to baseline during recovery Mild decrease uptake at the basal to mid anterior wall with mild reversibility, most probably secondary to breast attenuation. Overall borderline stress test, no significant ischemia or infarction on SPECT images Normal left ventricular size, ejection fraction 72% Copy Copies To 1: PARISH MAURER MD, BASHAR J MD March 09, 2023 15:53
== END ==
LOC: CARD 09:10
PROVIDERS: ATTEND Internal Medicine Cardiovascular Disease
DX: I48.0 Paroxysmal atrial fibrillation (principal)
CPT/HCPCS: 78452; 93017; A9502; C8929; 93306